=== PATIENT | female | born 1960 | race Caucasian/White ===

== ENCOUNTER 2020-12-23 12:32 | Emergency (ER) | payer OTHER ==
--- OUTSIDE RECORDS SUMMARY | 2020-12-23 12:35 | XMS REPORT | Continuity of Care Document ---
:1960 Author Organization [facility] t Address [address] [place] [address] Dr. Rice [address] [place] [id number] Care Team Providers Name Role Phone Unavailable Unavailable Unavailable Problems This patient has no known problems. Allergies, Adverse Reactions, Alerts This patient has no known allergies or adverse reactions. Medications This patient has no known medications. Procedures This patient has no known procedures. Results This patient has no known results.
--- NOTE | 2020-12-23 15:41 | ER ---
Nurse's Notes [facility] Name: Glenny Peoples Age: 60 yrs Sex: Female : 1960 Arrival Date: 12/23/2020 Time: 12:37 Bed DIS2 Private MD: Diagnosis: Presentation: 12/23 13:19 Chief complaint: Patient states: "I was getting my nails done, and I felt hot all of a ss sudden and passed out and threw up.". Coronavirus screen: Vaccine status: Patient reports receiving the 2nd dose of the covid vaccine. Ebola Screen: Patient denies exposure to infectious person. Patient denies travel to an Ebola-affected area in the 21 days before illness onset. Initial Sepsis Screen: Does the patient meet any 2 criteria? No. Patient's initial sepsis screen is negative. Does the patient have a suspected source of infection? No. Patient's initial sepsis screen is negative. Risk Assessment: Do you want to hurt yourself or someone else? Patient reports no desire to harm self or others. Onset of symptoms was December 23, 2020. 13:19 Method Of Arrival: Ambulatory ss 13:19 Acuity: KODY 3 ss Historical: - Allergies: 13:20 PENICILLINS; ss 13:20 Sulfa (Sulfonamide Antibiotics); ss - PMHx: 13:21 Hypertensive disorder; high cholesterol; Bipolar disorder; ss - Immunization history:: Client reports receiving the 2nd dose of the Covid vaccine. - Social history:: Smoking status: Patient denies any tobacco usage or history of. Vital Signs: 13:20 BP 100 / 72; Pulse 60; Resp 16; Temp 97.8(TE); Pulse Ox 100% ; Weight 79.38 kg; Height ss 5 ft. 6 in. (167.64 cm); Pain 0/10; 13:21 BP 108 / 66; ss 13:20 Body Mass Index 28.25 (79.38 kg, 167.64 cm) ss ED Course: 12:37 Patient arrived in ED. mr 13:20 Triage completed. ss 13:20 Arm band placed on right wrist. ss Administered Medications: No medications were administered Outcome: 15:40 Eloped from waiting room. ss 15:40 Patient left the ED. ss Signatures: Jess Helms Shelby, RN RN ss
[2020-12-23 15:58] VITALS: TEMP 97.8; O2SAT 100
[2020-12-23 15:59] VITALS: BP 108/66
== END 2020-12-23 15:40 | disposition left against medical advice (07) ==
LOC: ER 12:32
DX: Z53.21 Procedure and treatment not carried out due to patient leaving prior to being seen by health care provider (principal)
CPT/HCPCS: 82947; 99281

== ENCOUNTER 2021-08-07 15:13 | Observation (INO) | payer OTHER ==
--- OUTSIDE RECORDS SUMMARY | 2021-08-07 15:15 | XMS REPORT | Continuity of Care Document ---
:1960 Author Organization [facility] t Address [address] [place] [address] Care Team Providers Name Role Phone Zac RN RESEARCH Primary Care Physician Zac RN RESEARCH Attending Clinician Reserach_Research Attending Clinician Unavailable Reserach_Research Admitting Clinician Unavailable Payers Payer Name Policy Type Policy Number Effective Date Expiration Date Gomez HARLEY (EPO) [id number] 2011 00:00:00 Problems Condition Condition Condition Status Onset Resolution Last Treating Co mments Source Name Details Category Date Date Treatment Clinician Date Steatohepa Steatohepa Disease Active U myah hameed titedi - ity of 00:00: [place] 00 Medical Branch Hyperlipid Hyperlipid Disease Active U myah emia with emia with 04-30 [place] of target [place] density density 00 Medical lipoprotei lipoprotei Br anch n (LDL) n (LDL) cholestero cholestero l less l less than 130 than 130 mg/dL mg/dL Anxiety Anxiety Disease Active Univers 1-04 ity of 00:00: [place] 00 Medical Branch Allergies, Adverse Reactions, Alerts Allergy Allergy Status Severity Reaction(s) Onset Inactive Treating Comm ents Source Name Type Date Date Clinician Penicill Propensi Active Other - See As a U nivers ins ty to comments 04-30 child and ity o f adverse 00:00: haven't [place] reaction 00 tried Medical s again. Branch Sulfa Propensi Active Other - See Blisters U nivers (Sulfona ty to comments -04 in mouth. ity of mide adverse 00:00: [place] Antibiot reaction 00 Medica l ics) s Branch Social History Social Habit Start Date Stop Date Quantity Comments Source Exposure to Not sure [facility] SARS-CoV-2 (event) Medica l Branch Alcohol intake 2021-07-25 2021-07-25 0 /d [facility] 00:00:00 00:00:00 Medical Branch History of tobacco 2000-09-28 [facility] use 00:00:00 Medical Branch Sex Assigned At [address] [facility] y [facility] 00:00:00 00:00:00 Medical Branch Smoking Status Start Date Stop Date Source Former smoker 2020-08-01 00:00:00 2020-08-01 00:00:00 [facility] Medical Branch Medications Ordered Filled Start Stop Current Ordering Indication Dosage Frequency Signature Comments Components Source Medication Medication Date Date Medication? Clinician (SIG) Name Name budesonide- 2021- No 2{puff} Inhale 2 Univers formoteroL 07-25 Puffs 2 ity o f (SYMBICORT) 10:31: 00[place]00 (two) [place] 80-4.5 35 :00 times Medical mcg/actuati daily. Branch on inhaler traZODone Yes [id number] 50mg Take 1 Un storm 50 mg 3-31 tablet by ity of tablet 00:00: mouth at [place] 00 bedtime. Medical Branch busPIRone Yes [id number] 10mg Take 1 Un storm 10 mg 3-31 tablet by ity of tablet 00:00: mouth 2 00 (two) Medical times Branch daily as needed for Other (anxiety). atenoloL 50 Yes [id number] 50mg Take 1 U nivers mg tablet 3-08 tablet by ity o f 00:00: mouth [place] 00 daily. Medical Branch ezetimibe-r Yes [id number] 10mg Take 10 mg Univers osuvastatin 3-08 by mouth ity of 10-10 mg 00:00: daily. [facility] 00 Medical Branch citalopram Yes [id number] 20mg Take 1 U nivers 20 mg 3-08 tablet by ity of tablet 00:00: mouth [place] 00 daily. Medical Branch rOPINIRole Yes [id number] 5mg Take 1 Univers 5 mg tablet 3-08 tablet by ity of 00:00: mouth at [place] 00 bedtime. Medical Branch azelastine 2021- No [id number] 1{spray Use 1 Univers 137 mcg 06-03 } [place] in ity of (0.1 %) 00:00: 00:00 each [place] nasal spray 00 :00 nostril 2 Med ical (two) Branch times daily. Use in each nostril as directed benzonatate 2021- No [id number] 200mg Take 2 Univers 100 mg 06-03 capsules ity of capsule 00:00: 00:00 by mouth [place] 00 :00 every 8 Medical (eight) Branch hours as needed for Cough. methocarbam 2021- No [id number] 500mg Take 1 Univers oL 500 mg 06-03 tablet by ity of tablet 00:00: 00:00 mouth 4 [place] 00 :00 (four) Medical times Branch daily. meclizine Yes [id number] 25mg Take 1 Un storm 25 mg 1-05 tablet by ity of tablet 00:00: mouth [place] 00 every 6 Medical (six) Branch hours as needed for Dizziness. Diclofenac 2020-04- No [id number] Apply to Univers Sodium 1 % 05-29 area(s) 2 ity of gel 00:00: 00:00 (two) [place] 00 :00 times Medical daily as Branch needed for Pain (scale 4-6) (Apply 2 g do not exceed 4 g in a day). albuterol 2019-04- No [id number] 2{puff} Inhale 2 Univers 90 06-08 Puffs ity of mcg/actuati 00:00: 00:00 every 6 [place] inhaler 00 :00 (six) Medical hours as Branch needed for Wheezing or Shortness of Breath. Fenofibrate 2021- No [id number] 160mg Take 1 Univers 160 mg 11-29 tablet by ity of tablet 00:00: 00:00 mouth at [place] 00 :00 bedtime. Medical Branch amitriptyli 2021- No [id number] 100mg Take 1 Univers ne 100 mg 807-25 tablet by ity of tablet 00:00: 00:00 mouth [place] 00 :00 daily. Medical Branch ARIPiprazol 2021- No [id number] 10mg Take 1 Univers e 10 mg 707-25 tablet by ity of tablet 00:00: 00:00 mouth [place] 00 :00 daily. Medical Branch proMETHazin 2021- No [id number] 12.5mg Take 1 Univers e 12.5 mg 12-16 tablet by ity of tablet 00:00: 00:00 mouth [place] 00 :00 every 6 Medical (six) Branch hours as needed for Nausea and Vomiting (N/V). Immunizations Ordered Filled Immunization Date Status Comments [facility] e Immunization Name Name SARS-COV-2 COVID-19 2020-06-01 Completed Unive rsity of MODERNA VACCINE 00:00:00 [facility] SARS-COV-2 COVID-19 2020-05-04 Completed Unive rsity of MODERNA VACCINE 00:00:00 [facility] Influenza Virus 2020-04-11 [facility] .5 mL 00:00:00 [facility] 6+ MO Branch Zoster Vaccine 2018-11-25 Completed [facility] 00:00:00 [facility] Vital Signs Vital Name Observation Time Observation Value Comments Source Systolic blood 2021-07-25 15:32:00 117 mm[Hg] Univer sity [facility] pressure [facility] Diastolic blood 2021-07-25 15:32:00 78 mm[Hg] [facility] 2021-07-25 15:32:00 76 /min [facility] Body height 2021-07-25 15:32:00 167.6 cm [facility] Body weight 2021-07-25 15:32:00 79.652 kg [facility] BMI 2021-07-25 15:32:00 28.34 kg/m2 [facility] Oxygen saturation 2021-07-25 15:32:00 97 /min [facility] in Arterial blood Medical Br anch by Pulse oximetry Procedures This patient has no known procedures. Encounters Start End Encounter Admission Attending Care Care Encounter Source Date/Time Date/Time Type Type Clinicians Facility Department ID 2021-07-25 2021-07-25 Office JOSE Frank [id number] [place] [address] 10:30:00 11:50:25 Visit fl3ur [id number] it [facility] [id number] Kishor as LAVERNE?BLEA [id number] Wi joanie STANLEY [address] [place] [address] MEDICAL OFFICE [facility] 2021-06-04 2021-06-04 Outpatient Reserach_Re U U [id number] [place] 02:20:00 02:20:00 search [facility] Urology Results This patient has no known results.
[2021-08-07 16:15] LABS: Absolute Lymphocytes (CBC) 1.8 K/uL (0.7-4.9); Hematocrit 41.8 % (36.0-45.0); Lymphocytes % 35.7 % (15.3-44.8); MPV 6.8 fL (7.6-11.3); RBC Red Blood Cell Count 4.61 M/uL (3.86-4.86)
--- NOTE | 2021-08-07 16:20 | RAD REPORT ---
EXAM DESCRIPTION: RAD - Chest Single View - 08/07/2021 4:14 pm CLINICAL HISTORY: DYSPNEA COMPARISON: ABDOMEN 1 VIEW KUB dated 03/07/2014; ABDOMEN 1 VIEW KUB dated 02/11/2013 FINDINGS: Lines: None. Lungs: No evidence of edema or pneumonia. Pleural: No significant pleural effusions or pneumothorax. Cardiac: The heart size is within normal limits. Bones: No acute fractures. Other: IMPRESSION: No acute cardiopulmonary disease.
[2021-08-07 16:31] LABS: BUN Blood Urea Nitrogen 18 mg/dL (7-18); Bicarbonate 30 mmol/L (21-32); Glucose Level 104 mg/dL (74-106); NT PRO-BNP 43 pg/mL (<125); Potassium 3.7 mmol/L (3.5-5.1); Sodium Level 140 mmol/L (136-145)
[2021-08-07 16:38] LABS: Troponin High Sensitivity < 3.0 pg/mL (<58.9)
--- NOTE | 2021-08-07 16:58 | ER ---
Nurse's Notes [facility] Name: Glenny Peoples Age: 61 yrs Sex: Female : 1960 Arrival Date: 08/07/2021 Time: 15:19 Bed 8 Private MD: Diagnosis: Syncope Presentation: 08/07 15:28 Chief complaint: EMS states: pt was at a local ENT's office having a nasal procedure tw2 done. we got the call for a CPR in progress. when we arrived that was not the case. she was A\\T\\O3 vs stable. although pt had no recollection of what happened. staff reported lips turned blue, pt was clenching down so hard broke a front bottom tooth, and md started CPR. pt reports 4 syncopal episodes since April of this year and has been cleared medically each time. 15:28 Coronavirus screen: At this time, the client does not indicate any symptoms associated tw2 with coronavirus-19. Ebola Screen: Patient denies travel to an Ebola-affected area in the 21 days before illness onset. Initial Sepsis Screen: Does the patient meet any 2 criteria? No. Patient's initial sepsis screen is negative. Does the patient have a suspected source of infection? No. Patient's initial sepsis screen is negative. Risk Assessment: Do you want to hurt yourself or someone else? Patient reports no desire to harm self or others. Onset of symptoms was August 07, 2021. 15:28 Method Of Arrival: EMS: [facility] tw2 15:28 Acuity: KODY 3 tw2 Triage Assessment: 15:28 General: Appears in no apparent distress. slender, well groomed, Behavior is calm, tw2 cooperative, appropriate for age. Pain: Denies pain. EENT: dried blood noted to b/l nasal openings. pt reports "lidocaine might be wearing off", provider notified.. Neuro: Level of Consciousness is awake, alert, obeys commands, Oriented to person, place, time, situation. Cardiovascular: Patient's skin is warm and dry. Respiratory: Airway is patent Respiratory effort is even, unlabored, Respiratory pattern is regular, symmetrical. GI: No signs and/or symptoms were reported involving the gastrointestinal system. Musculoskeletal: Range of motion: intact in all extremities. Historical: - Allergies: 15:57 Sulfa (Sulfonamide Antibiotics); tw2 15:57 PENICILLINS; tw2 - PMHx: 15:57 Bipolar disorder; High Cholesterol; Hypertensive disorder; Gastroesophageal reflux tw2 disease; Anxiety; - PSHx: 15:57 Cholecystectomy; Appendectomy; tw2 - Immunization history:: Adult Immunizations. - Social history:: Smoking status: . Screenin:01 Abuse screen: Denies threats or abuse. Nutritional screening: No deficits noted. tw2 Tuberculosis screening: No symptoms or risk factors identified. Fall Risk None identified. Assessment: 19:12 Reassessment: Patient appears in no apparent distress at this time. No changes from tw2 previously documented assessment. Patient and/or family updated on plan of care and expected duration. Pain level reassessed. Patient is alert, oriented x 3, equal unlabored respirations, skin warm/dry/pink. Vital Signs: 15:28 BP 125 / 78; Pulse 64; Resp 17; Temp 97.8(TE); Pulse Ox 95% on R/A; Weight 77.56 kg tw2 (R); Height 5 ft. 6 in. (167.64 cm) (R); Pain 0/10; 15:48 Pulse Ox 90% on R/A; tw2 16:48 BP 129 / 70; Pulse 62; Resp 17; Pulse Ox 100% on 2 lpm NC; tw2 18:30 BP 131 / 68; Pulse 87; Resp 17; Pulse Ox 99% on R/A; tw2 19:09 BP 99 / 33; Pulse 63; Resp 12; Pulse Ox 99% on R/A; tw2 15:28 Body Mass Index 27.60 (77.56 kg, 167.64 cm) tw2 15:48 pt placed on 2 L nc at this time, provider notified. tw2 ED Course: 15:19 Patient arrived in ED. bd 15:24 Robert Rodriguez PA is PHCP. jr8 15:24 Vic Santiago DO is Attending Physician. jr8 15:28 Bed in low position. Call light in reach. esthetician/owner on. Pulse ox on. NIBP on. tw2 15:37 Deneen Dooley RN is Primary Nurse. tw2 15:57 Triage completed. tw2 16:01 Arm band placed on. tw2 16:16 XRAY Chest (1 view) In Process Unspecified. EDMS 16:57 Fabio Andersen MD is Hospitalizing Provider. jr8 21:16 No provider procedures requiring assistance completed. Patient admitted, IV remains in tw5 place. 21:17 COVID-19 (Coronavirus) Document "Date of Onset" if Symptomatic Sent. tw5 Administered Medications: No medications were administered Outcome: 16:57 Decision to Hospitalize by Provider. jr8 21:16 Admitted to ER Hold. Please see [facility] for further documentation. tw5 21:16 Condition: stable 21:16 Instructed on the need for admit. 04 17:18 Patient left the ED. vg1 Signatures: Dispatcher [employer] EDMS Betzy Peacock Josh, PA PA jr8 Deneen Dooley RN RN tw2 Iman Hector RN RN vg1 Theresa Giron tw5 Corrections: (The following items were deleted from the chart) 08/07 19:12 16:48 BP 129 / 70; Pulse 62bpm; Resp 17bpm; Pulse Ox 100% RA; tw2 tw2
--- NOTE | 2021-08-07 16:58 | EDPHYS ---
Physician Documentation [facility] Name: Glenny Peoples Age: 61 yrs Sex: Female : 1960 Arrival Date: 08/07/2021 Time: 15:19 Bed 8 Private MD: ED Physician Vic Santiago HPI: 08/07 16:03 This 61 yrs old Female presents to ER via EMS with complaints of Syncope. jr8 16:03 Onset: The symptoms/episode began/occurred acutely, today. Duration: This was a single jr8 episode. Context: the episode(s) was witnessed, ENT Office. 16:13 Current symptoms: Currently, the patient is not experiencing any symptoms, the patient jr8 feels back to baseline, no decreased level of consciousness, no confusion, no dysphasia, no headache, no paralysis, no visual changes. The patient has experienced similar episodes in the past, a few times. This is a 61-year-old female patient that presented to the emergency room after EMS was called out for syncopal episode with hypoxia. Patient stated that she has had 3 other episodes of syncope that were nonstimulated in the past. Was seen by cardiology at that time and had echocardiogram, stress test, Holter monitor placed without acute findings. Patient today was at otolaryngology office having a nasal procedure completed when staff stated that she yawned and then became cyanotic around the lips and clenched her teeth so hard that she broke a tooth. Stated that it lasted for couple minutes and was concerned that she had lost a pulse and started CPR. Patient stated that she felt them pushing on her chest and said ouch but does not remember much more than that. Stated that the next thing she remembers from when the procedure started was that EMS was on scene taking care of her. . Historical: - Allergies: 15:57 Sulfa (Sulfonamide Antibiotics); tw2 15:57 PENICILLINS; tw2 - PMHx: 15:57 Bipolar disorder; High Cholesterol; Hypertensive disorder; Gastroesophageal reflux tw2 disease; Anxiety; - PSHx: 15:57 Cholecystectomy; Appendectomy; tw2 - Immunization history:: Adult Immunizations. - Social history:: Smoking status: . ROS: 16:30 Eyes: Negative for injury, pain, redness, and discharge, ENT: Negative for injury, jr8 pain, and discharge, Neck: Negative for injury, pain, and swelling, Cardiovascular: Negative for chest pain, palpitations, and edema, Respiratory: Negative for shortness of breath, cough, wheezing, and pleuritic chest pain, Abdomen/GI: Negative for abdominal pain, nausea, vomiting, diarrhea, and constipation, Back: Negative for injury and pain, MS/Extremity: Negative for injury and deformity, Skin: Negative for injury, rash, and discoloration. 16:30 Neuro: Positive for syncope. Exam: 16:30 Constitutional: This is a well developed, well nourished patient who is awake, alert, jr8 and in no acute distress. Eyes: Pupils equal round and reactive to light, extra-ocular motions intact. Lids and lashes normal. Conjunctiva and sclera are non-icteric and not injected. Cornea within normal limits. Periorbital areas with no swelling, redness, or edema. ENT: Nares patent. No nasal discharge, no septal abnormalities noted. Tympanic membranes are normal and external auditory canals are clear. Oropharynx with no redness, swelling, or masses, exudates, or evidence of obstruction, uvula midline. Mucous membranes moist. Neck: Trachea midline, no thyromegaly or masses palpated, and no cervical lymphadenopathy. Supple, full range of motion without nuchal rigidity, or vertebral point tenderness. No Meningismus. Cardiovascular: Regular rate and rhythm with a normal S1 and S2. No gallops, murmurs, or rubs. Normal PMI, no JVD. No pulse deficits. Respiratory: Lungs have equal breath sounds bilaterally, clear to auscultation and percussion. No rales, rhonchi or wheezes noted. No increased work of breathing, no retractions or nasal flaring. Abdomen/GI: Soft, non-tender, with normal bowel sounds. No distension or tympany. No guarding or rebound. No evidence of tenderness throughout. Back: No spinal tenderness. No costovertebral tenderness. Full range of motion. Skin: Warm, dry with normal turgor. Normal color with no rashes, no lesions, and no evidence of cellulitis. MS/ Extremity: Pulses equal, no cyanosis. Neurovascular intact. Full, normal range of motion. Neuro: Awake and alert, GCS 15, oriented to person, place, time, and situation. Cranial nerves II-XII grossly intact. Motor strength 5/5 in all extremities. Sensory grossly intact. Vital Signs: 15:28 BP 125 / 78; Pulse 64; Resp 17; Temp 97.8(TE); Pulse Ox 95% on R/A; Weight 77.56 kg tw2 (R); Height 5 ft. 6 in. (167.64 cm) (R); Pain 0/10; 15:48 Pulse Ox 90% on R/A; tw2 16:48 BP 129 / 70; Pulse 62; Resp 17; Pulse Ox 100% on 2 lpm NC; tw2 18:30 BP 131 / 68; Pulse 87; Resp 17; Pulse Ox 99% on R/A; tw2 19:09 BP 99 / 33; Pulse 63; Resp 12; Pulse Ox 99% on R/A; tw2 15:28 Body Mass Index 27.60 (77.56 kg, 167.64 cm) tw2 15:48 pt placed on 2 L nc at this time, provider notified. tw2 MDM: 15:24 Patient medically screened. jr8 16:56 Data reviewed: vital signs, nurses notes, lab test result(s), EKG, radiologic studies, jr8 plain films. Data interpreted: Pulse oximetry: on room air is 94 %. Interpretation: acceptable. Counseling: I had a detailed discussion with the patient and/or guardian regarding: the historical points, exam findings, and any diagnostic results supporting the discharge/admit diagnosis, lab results, radiology results, the need for further work-up and treatment in the hospital. 08/07 15:26 Order name: Basic Metabolic Panel; Complete Time: 16:57 [facility] 08/07 15:26 Order name: CBC with Diff; Complete Time: 16:25 08/07 15:26 Order name: Magnesium; Complete Time: 16:57 08/07 15:26 Order name: NT PRO-BNP; Complete Time: 16:57 [facility] 08/07 15:26 Order name: Troponin HS; Complete Time: 16:57 08/07 16:32 Order name: ABG; Complete Time: 17:24 08/07 16:33 Order name: COVID-19 (Coronavirus) Document "Date of Onset" if Symptomatic [facility] 08/07 20:21 Order name: SARS-COV-2 RT PCR; Complete Time: 08:41 EDMS 08/07 22:10 Order name: Urinalysis; Complete Time: 08:41 EDMS 08/07 22:30 Order name: Urine Microscopic Only; Complete Time: 08:41 EDMS 08/08 03:11 Order name: CBC with Automated Diff; Complete Time: 08:41 EDMS 08/08 03:33 Order name: Comprehensive Metabolic Panel; Complete Time: 08:41 EDMS 08/08 03:33 Order name: Lipid Profile; Complete Time: 08:41 EDMS 08/08 03:33 Order name: T4 Free; Complete Time: 08:41 EDMS 08/07 15:26 Order name: XRAY Chest (1 view); Complete Time: 16:25 jr8 08/07 15:26 Order name: EKG; Complete Time: 15:27 jr8 08/07 15:26 Order name: Cardiac monitoring; Complete Time: 19:13 jr8 08/07 15:26 Order name: EKG - Nurse/Tech; Complete Time: 19:13 jr8 08/07 15:26 Order name: IV Saline Lock; Complete Time: 19:13 jr8 08/07 15:26 Order name: Labs collected and sent; Complete Time: 19:14 jr8 08/07 15:26 Order name: O2 Per Protocol; Complete Time: 19:14 jr8 08/07 15:26 Order name: O2 Sat Monitoring; Complete Time: 19:14 jr8 08/08 03:33 Order name: Thyroid Stimulating Hormone; Complete Time: 08:41 EDMS 08/08 08:46 Order name: CT; Complete Time: 09:23 EDMS 08/08 15:41 Order name: MRI; Complete Time: 15:41 EDMS Administered Medications: No medications were administered Disposition Summary: 08/07/21 16:57 Hospitalization Ordered Hospitalization Status: Observation jr8 Provider: Fabio Andersen Condition: Stable jr8 Problem: new jr8 Symptoms: have improved jr8 Bed/Room Type: Standard [facility] Location: [facility] ER HOLD(08/07/21 21:12) ja Room Assignment: ERHOLD-(08/07/21 21:12) ja Diagnosis - Syncope jr8 Forms: - Medication Reconciliation Form jr8 - SBAR form jr8 Addendum: 08/10/2021 15:41 Co-signature as Attending Physician, Vic Santiago DO I was immediately available on-site m s3 in the Emergency Department for consultation in the care of the patient.. Signatures: Dispatcher [employer] EDMS Robert Rodriguez PA PA jr8 Deneen Dooley RN RN tw2 Sanya Omer RN RN ja1 Vic Santiago DO DO ms3 Corrections: (The following items were deleted from the chart) 08/07 16:31 16:13 This is a 61-year-old female patient that presented to the emergency room after [facility] EMS was called out for syncopal episode with hypoxia. Patient stated that she has had 3 other episodes of syncope that were nonstimulated in the past. Patient today was at otolaryngology office having a nasal procedure completed.. 21: 16:57 Telemetry/MedSurg (observation) [facility] 21:12 16:57 [facility] ja
[2021-08-07 17:04] LABS: Blood O2 Saturation 97.1 % (92-98.5)
--- NOTE | 2021-08-07 19:01 | P.HP ---
Certification for Inpatient Patient admitted to: Observation With expected LOS: <2 Midnights Patient will require the following post-hospital care: None Practitioner: I am a practitioner with admitting privileges, knowledge of patient current condition, hospital course, and medical plan of care. Services: Services provided to patient in accordance with Admission requirements found in Title 42 Section 412.3 of the Code of Federal Regulations Patient History Date of Service: 08/07/21 Primary Care Provider: Dr. Bonilla Reason for admission: Syncope History of Present Illness: 61-year-old female with history of hypertension, hyperlipidemia, BPD, GERD presents the emergency department for syncopal event. Patient ports that she is had approximately 4 syncopal events or since April of this year never having any previously in her life. This time she was at the ENT office having a nasal procedure done when they noted that she yawned followed by becoming circumorally cyanotic and then clenched her jaw breaking one of her bottom teeth off, patient had chest compressions performed in the ENT office but regained consciousness and is currently back to her baseline mental status. Patient reports in the past 4 months she has had numerous tests performed to identify the cause of her syncope including echocardiogram, stress test, carotid Doppler, Holter monitor, CT scan of her head which have all been negative. Patient reports prior to her episodes that she does sometimes get nauseous and diaphoretic but denies any other symptoms prior to syncope including chest pain, palpitations, headache or dizziness. Patient's labs in the ER were unremarkable ED provider wishes to admit under observation for syncope, will consult neurology. - Past Medical/Surgical History -: Hypertension -: Hyperlipidemia -: BPD -: GERD -: Nasal surgery Psychosocial/ Personal History: Patient is retired lives at home with family - Family History Mother -: Cancer Father -: Hypertension - Social History Smoking Status: Never smoker Alcohol use: No CD- Drugs: No Caffeine use: Yes Place of Residence: Home Review of Systems 10-point ROS is otherwise unremarkable Neurological: Other (Syncope) Physical Examination - Physical Exam General: Alert, In no apparent distress, Oriented x3 HEENT: Atraumatic, PERRLA, Mucous membr. moist/pink, EOMI, Sclerae nonicteric Neck: Supple, 2+ carotid pulse no bruit, No LAD, Without JVD or thyroid abnormality Respiratory: Clear to auscultation bilaterally, Normal air movement Cardiovascular: Regular rate/rhythm, Normal S1 S2 Gastrointestinal: Normal bowel sounds, No tenderness Musculoskeletal: No tenderness Integumentary: No rashes Neurological: Normal gait, Normal speech, Normal strength at 5/5 x4 extr, Normal tone, Normal affect Lymphatics: No axilla or inguinal lymphadenopathy - Studies Laboratory Data (last 24 hrs) 08/07/21 16:03: WBC 5.1, Hgb 14.2, Hct 41.8, Plt Count 273 08/07/21 16:03: Sodium 140, Potassium 3.7, BUN 18, Creatinine 0.94, Glucose 104, Magnesium 2.0 Assessment and Plan - Plan Assessment: Syncoperecurrent with loss of consciousness Hypertension Hyperlipidemia BPD GERD Plan: Syncoperecurrent with loss of consciousness: Patient has had stress test, ech ocardiogram, Holter monitor, CT head, carotid Doppler in the past 4 months which have all been normal per patient. During this episode patient did clench her jaw resulting in the breaking up on her teeth we will also consult neurology as she has not been evaluated by neurologist for possible causes of syncope or possible seizures. Monitor on telemetry obtain orthostatic vital signs. Hypertension: Continue home medications Hyperlipidemia:Continue home medications BPD:Continue home medications GERD:Continue home medications DVT PPX: Lovenox Code status: Full Discharge Plan: Home Plan to discharge in: 24 Hours - Advance Directives Does patient have a Living Will: No Does patient have a Durable POA for Healthcare: No - Code Status/Comfort Care Code Status Assessed: Yes (Full code) Critical Care: No Time Spent Managing Pts Care (In Minutes): 55
[2021-08-07] MEDS ORDERED: ONDANSETRON 4 MG/2 ML VIAL IV PRN (21:22)
[2021-08-07 21:35] VITALS: BMI 27.6
[2021-08-07] MEDS ORDERED: ACETAMINOPHEN 325 MG TABLET PO PRN (21:39)
[2021-08-07] MEDS ORDERED: ACETAMINOPHEN 325 MG TABLET ONE (21:47)
[2021-08-07 22:07] LABS: Urine Appearance CLOUDY (Clear); Urine Bilirubin NEGATIVE (Negative); Urine Blood NEGATIVE (Negative); Urine Color YELLOW (Yellow); Urine Glucose NEGATIVE (Negative); Urine Protein NEGATIVE (Negative); Urine Urobilinogen 0.2 mg/dL (0.2-1.0); Urine pH 5.5 (5.0-7.0)
[2021-08-07 22:10] LABS: Urine Microscopic Reflex ORDER UMIC
[2021-08-07 22:29] LABS: Urine Bacteria LOADED /HPF (<20); Urine Mucus 1+ /HPF (NONE SEEN); Urine RBC <5 /HPF (NONE SEEN)
[2021-08-08] MEDS: CEFTRIAXONE 1,000 MG in NA CHLORIDE 0.9% 50 ML IVPB SCH ×2 (02:36→09:00)
[2021-08-08] MEDS ORDERED: HYDROCODONE/APAP 5/325 MG TAB PO PRN (02:36)
[2021-08-08 03:08] LABS: Absolute Lymphocytes (CBC) 2.2 K/uL (0.7-4.9); Hematocrit 38.4 % (36.0-45.0); Lymphocytes % 34.9 % (15.3-44.8); MPV 7.1 fL (7.6-11.3); RBC Red Blood Cell Count 4.24 M/uL (3.86-4.86)
[2021-08-08] MEDS ORDERED: HYDROCODONE/APAP 5/325 MG TAB ONE (03:16)
[2021-08-08] MEDS ORDERED: NA CHLORIDE 0.9% 50 ML ONE ×2 (03:17→08:56)
[2021-08-08] MEDS ORDERED: CEFTRIAXONE 1000 MG/VIAL ONE ×2 (03:17→08:56)
[2021-08-08 03:32] LABS: Albumin 3.3 g/dL (3.4-5.0); Bilirubin Total 0.4 mg/dL (0.2-1.0); Potassium 3.7 mmol/L (3.5-5.1); Protein, Total 6.9 g/dL (6.4-8.2); Thyroid Stimulating Hormone 1.92 uIU/mL (0.360-3.740)
--- NOTE | 2021-08-08 07:37 | P.PN ---
Date of Service: 08/08/21
[2021-08-08] MEDS ORDERED: NS KCL 20MEQ 20 MEQ/1,000 ML BAG IV SCH (08:00)
--- NOTE | 2021-08-08 08:45 | RAD REPORT ---
EXAM DESCRIPTION: CT - Abdomen Pelvis W Contrast - 08/08/2021 8:08 am CLINICAL HISTORY: LLQ pain/tender, b/l CVA pain tender, x1 day, prior cholecystectomy, appendectomy and hysterectomy COMPARISON: No relevant comparison available TECHNIQUE: Biphasic, helical CT imaging of the abdomen and pelvis was performed following 100 ml non -ionic IV contrast. No oral contrast administered. All CT scans are performed using dose optimization technique as appropriate and may include automated exposure control or mA/KV adjustment according to patient size. FINDINGS: No suspicious findings in the lung bases. Liver size is normal range with mild fatty infiltration pattern in the parenchyma. No focal liver les ion. No portal vein abnormality. Cholecystectomy clips are present. Biliary tree is enlarged but not outside of normal range for post cholecystectomy status. The intrahepatic biliary tree is not enlarge d. No pancreatic or peripancreatic abnormality. No splenic abnormalities. Symmetric renal function is seen with no hydronephrosis or suspicious renal mass. No pyelonephritis o r acute parenchymal process. Urinary bladder is contracted limiting assessment. No bladder stone or g ross bladder wall abnormality. No adrenal abnormalities. Uterus is absent. Atrophic ovaries are still present without suspicious finding. No dilated bowel loops or bowel wall thickening. Left-sided diverticulosis is very minimal. No acute colon finding seen. No free air, free fluid or inflammatory stranding. No hernia, mass or bulky lymphadenopathy. Disc and bone degenerative changes are present. There is concavity to the superior endplate L4 with p eripheral wall height maintained. Approximately 10-15% wedging of the T12 body is present with manager of sustainability ior wall height preserved. Arterial tree calcifications are present. IMPRESSION: Contrast enhanced CT abdomen and pelvis showing no acute or emergent finding. Fatty infiltration of the liver. Lower thoracic and lumbar degenerative bone and disc changes are present. No gross evidence for an ac franck process.
[2021-08-08] MEDS ORDERED: NS KCL 20MEQ 1,000 ML IV ONE (08:55)
[2021-08-08] MEDS ORDERED: ENOXAPARIN 40 MG/0.4 ML SQ ONE (08:56)
[2021-08-08] MEDS ORDERED: ENOXAPARIN 40 MG/0.4 ML SQ SCH (09:00)
[2021-08-08] MEDS ORDERED: levETIRAcetam 500 MG TAB PO SCH (09:30)
[2021-08-08] MEDS ORDERED: levETIRAcetam 500 MG TAB ONE (09:57)
[2021-08-08 12:36] VITALS: BP 112/87; TEMP 97.8
--- NOTE | 2021-08-08 15:40 | RAD REPORT ---
EXAM DESCRIPTION: MRI - Brain W/Wo Cont - 08/08/2021 3:26 pm CLINICAL HISTORY: Seizure COMPARISON: None TECHNIQUE: Axial, sagittal, and coronal magnetic images of the brain were obtained. 17 cc MultiHance administered intravenously FINDINGS: Relatively symmetric abnormal signal is present within the right and left basal ganglia me asuring up to 13 millimeters. This has a chronic appearance and may represent old infarction. These a reas do not enhance. Hippocampal gyri normal caliber and signal The ventricles are normal in caliber. Diffusion-weighted/ ADC mapping sequences do not demonstrate evidence of an acute infarction. No abnormal enhancement within the brain is seen. An extra-axial fluid collection is not noted. Fluid within the sinuses/mastoids is not seen IMPRESSION: No acute intracranial abnormality displayed
--- NOTE | 2021-08-08 16:42 | P.DS ---
Admission Date: 08/07/21 Discharge Date: 08/08/21 Primary Care Provider: Dr. Bonilla Disposition: ROUTINE DISCHARGE Discharge Condition: GOOD Reason for Admission: Syncope Vital Signs/Physical Exam: Temp Pulse Resp BP Pulse Ox 97.8 F 60 14 112/87 98 08/08/21 12:00 08/08/21 12:00 08/08/21 12:00 08/08/21 12:00 08/08/21 12:00 Laboratory Data at Discharge: WBC 6.4 K/uL (4.3-10.9) D 08/08/21 02:45 Hgb 13.0 g/dL (12.0-15.0) 08/08/21 02:45 Hct 38.4 % (36.0-45.0) 08/08/21 02:45 Plt Count 231 K/uL (152-406) 08/08/21 02:45 Sodium 141 mmol/L (136-145) 08/08/21 02:45 Potassium 3.7 mmol/L (3.5-5.1) 08/08/21 02:45 BUN 17 mg/dL (7-18) 08/08/21 02:45 Creatinine 0.82 mg/dL (0.55-1.3) 08/08/21 02:45 Glucose 98 mg/dL (74-106) 08/08/21 02:45 Magnesium 2.0 mg/dL (1.8-2.4) 08/07/21 16:03 Total Bilirubin 0.4 mg/dL (0.2-1.0) 08/08/21 02:45 AST 23 U/L (15-37) 08/08/21 02:45 ALT 37 U/L (12-78) 08/08/21 02:45 Alkaline Phosphatase 75 U/L (45-117) 08/08/21 02:45 Triglycerides 108 mg/dL (<150) 08/08/21 02:45 Cholesterol 119 mg/dL (<200) 08/08/21 02:45 HDL Cholesterol 50 mg/dL (40-60) 08/08/21 02:45 Cholesterol/HDL Ratio 2.38 08/08/21 02:45 Home Medications: Atenolol [Tenormin] 50 mg PO DAILY 08/07/21 Citalopram [Celexa*] 20 mg DAILY 08/07/21 Ropinirole HCl 5 mg DAILY 08/07/21 Rosuvastatin Calcium 5 mg DAILY 08/07/21 Aspirin [Adult Low Dose Aspirin EC] 81 mg PO DAILY 30 Days #30 tablet. 08/08/21 Cefpodoxime Proxetil 100 mg PO BID 7 Days #14 tablet 08/08/21 Folic Acid 1 mg PO DAILY 30 Days #30 tablet 08/08/21 levETIRAcetam [Keppra*] 250 mg PO BID 30 Days #60 tab 08/08/21 New Medications: Aspirin [Adult Low Dose Aspirin EC] 81 mg PO DAILY 30 Days #30 tablet. Cefpodoxime Proxetil 100 mg PO BID 7 Days #14 tablet Folic Acid 1 mg PO DAILY 30 Days #30 tablet levETIRAcetam [Keppra*] 250 mg PO BID 30 Days #60 tab Physician Discharge Instructions: MRI brain revealed abnormal signal present in both right and left basal ganglia measuring up to 13 millimeters. Chronic appearance that may represent old infarction. No acute findings. Patient reported flank pain and urinary changes, found to have bacteruria and treated with antibiotics for UTI. Patient is likely have tonic seizures, this being the 4th episodes since April. Prior episodes occurred while patient was sitting, relaxed, associated with bowel incontinence and around same time she was having UTIs. This would also be the 4th UTI since April. Patient reports urinary incontinence since April, occurred after initial UTI and has persisted. Likely, increasing risk for further UTIs. Pre and post void bladder scan was done. Patient noted to fully empty her bladder. CT abdomen/pelvis performed without any acute findings. Patient is discharged home New medications: Aspirin 81 mg, Keppra to 50 mg twice daily. Cefpodoxime for 7 days Continue statin Follow up with Neurology - Dr. Gardner in 2-3 weeks. Call his office in the next day or two to schedule appointment. Recommend following up with Urologist to further investigate urinary incontinence. Diet: Regular Activity: Ad aniceto Followup: NONE,NONE [Primary Care Provider] -
[2021-08-08 20:42] VITALS: O2SAT 99
== END 2021-08-08 17:18 | disposition home or self-care (01) ==
LOC: ER 15:13 → ERHOLD 18:51
PROVIDERS: ADMIT Hospitalist; ATTEND Hospitalist
DX: R55 Syncope and collapse (principal); N39.0 Urinary tract infection, site not specified; R32 Unspecified urinary incontinence; I10 Essential (primary) hypertension; E78.5 Hyperlipidemia, unspecified; K21.9 Gastro-esophageal reflux disease without esophagitis; F31.9 Bipolar disorder, unspecified; F41.9 Anxiety disorder, unspecified; Z20.822 Contact with and (suspected) exposure to COVID-19; Z79.82 Long term (current) use of aspirin; Z79.899 Other long term (current) drug therapy; Z88.0 Allergy status to penicillin; Z88.2 Allergy status to sulfonamides; Z90.49 Acquired absence of other specified parts of digestive tract; Z80.9 Family history of malignant neoplasm, unspecified; Z82.49 Family history of ischemic heart disease and other diseases of the circulatory system
CPT/HCPCS: 95819; 87088; 85025 ×2; 87086; 80048; 36415; 83735; 80061; 84443; 87077 ×2; 87186 ×2; 84484; 84439; 80053; 83880; 74177; 71045; 70553; 82805; 99285; U0003; Q9967; A9577; J1650; J3480; G0378 ×3; 81003; 81015

== ENCOUNTER 2022-09-13 03:46 | Emergency (ER) | payer OTHER ==
--- OUTSIDE RECORDS SUMMARY | 2022-09-13 03:57 | XMS REPORT | Continuity of Care Document ---
:1960 Author Organization [facility] [place] [facility] t Address [address] [facility] [address] [place] [id number] Care Team Providers Name Role Phone SHANIQUA FRANK Primary Care Physician Unavailable SHERRY GARCIA Attending Clinician Unavailable SHANIQUA FRANK Attending Clinician Unavailable TAWANNA GALICIA Attending Clinician Unavailable TAWANNA GALICIA Attending Clinician Unavailable Shaniqua Sapp Attending Clinician Jessika Del Rio PT Attending Clinician Unavailable Manolo Bonilla MD Attending Clinician Jaylen Pierre MD Attending Clinician Doctor Unassigned, Rayle Attending Clinician Unavailable Sherry Garcia MD Attending Clinician Basilio Gomez CRNA Attending Clinician Castro Lomeli DO S Attending Clinician Lab, Ang - Db Attending Clinician Unavailable SHIMA DHALIWAL Attending Clinician Unavailable Shima Anthony Attending Clinician Pavan Woodward Attending Clinician ANG CASTILLO Attending Clinician Unavailable MANOLO BONILLA Attending Clinician Unavailable Katie Watters Attending Clinician Unavailable Amelia Montejo MD Attending Clinician AMELIA MONTEJO Attending Clinician Unavailable PAVAN AWAN Attending Clinician Unavailable Zoraida Hector RN Attending Clinician Unavailable Only, Martín Db Test Attending Clinician Unavailable Raphael RALPH, Crystal Kiser Attending Clinician CRYSTAL LIM Attending Clinician Unavailable DEBI MIDDLETON Attending Clinician Unavailable Debi Middleton MD Attending Clinician Only, Adc Test Attending Clinician Unavailable Debi Lopez MD Attending Clinician DEBI LOPEZ Attending Clinician Unavailable Pob, Adc Lab Main Attending Clinician Unavailable CHANA RICHARDSON Attending Clinician Unavailable [email or web address]_Research Attending Clinician Unavailable Unknown, Attending Attending Clinician Unavailable Trina Horton Attending Clinician Chana Atkinson MD Attending Clinician TRINA BAEZ Attending Clinician Unavailable Radiology Attending Clinician Unavailable RADIOLOGY Attending Clinician Unavailable Janae LYNCH Attending Clinician Unavailable Janae Zuniga Attending Clinician MIKIE MEJIA Attending Clinician Unavailable Mikie Bai S Attending Clinician Nurse, Tray Urgent Attending Clinician Unavailable Provider, Martín [facility] Attending Clinician Unavailable Sunita Mendez Attending Clinician SUNITA DEL ROSARIO Attending Clinician Unavailable Melvin De La O DO Attending Clinician Lab, Adc Fam Pob I Attending Clinician Unavailable 2, Adc Lab Attending Clinician Unavailable Cece Gutierrez RN Attending Clinician Unavailable Pob1, [facility] Attending Clinician Unavailable SHERRY GARCIA Admitting Clinician Unavailable Sherry Garcia MD Admitting Clinician SHIMA DHALIWAL Admitting Clinician Unavailable SHANIQUA FRANK Admitting Clinician Unavailable Katie Watters Admitting Clinician Unavailable DEBI MIDDLETON Admitting Clinician Unavailable Debi Middleton MD Admitting Clinician [email or web address] Admitting Clinician Unavailable IQRA EDNISE Admitting Clinician Unavailable Payers Payer Name Policy Type Policy Number Effective Date Expiration Date Gomez [employer] [id number] 2011 00:00:00 [employer] (EPO) [id number] 2011 00:00:00 Problems Condition Condition Condition Status Onset Resolution Last Treating Co mments Source Name Details Category Date Date Treatment Clinician Date Restless Restless Disease Active 2020-04 Unive rs leg leg 2-31 ity of syndrome syndrome 00:00: [place] 00 Medical Branch Syncope Syncope Disease Active Univers 8-30 ity of 00:00: [place] 00 Medical Branch Steatohepa Steatohepa Disease Active U nivers titis titis 9-04 ity of 00:00: [place] 00 Medical Branch Hyperlipid Hyperlipid Disease Active U myah emia with emia with 1-04 ity of target low target low 00:00: [...] ents Source Name Type Date Date Clinician GABAPENT DRUG Active High SOB Univers IN INGREDI 3-07 ity of 00:00: [place] 00 Medical Branch Gabapent Propensi Active Shortness of Univers in ty to Breath 3-07 ity of adverse 00:00: [place] reaction 00 Medical s to Branch drug PSYLLIUM DRUG Active SOB Univers INGREDI 9-30 ity of 00:00: [place] 00 Medical Branch Psyllium Drug Active Shortness of Un storm Allergy Breath 9-30 ity of 00:00: [place] 00 Medical Branch Penicill DA Active [facility] [place] [facility] Sulfa DA Active [facility] (Sulfona 01-21 [place] mide 00:00: d Antibiot 00 Medical ics) Center Sulfa Propensi Active Other - See Blisters U nivers (Sulfona ty to comments 1-04 in mouth. ity of mide adverse 00:00: [place] Antibiot reaction 00 Medica l ics) s Branch Penicill Propensi Active Other - See As a U nivers ins ty to comments 1-04 child and ity o f adverse 00:00: haven't [place] reaction 00 tried Medical s again. Branch PENICILL Drug Active Other-Cmnt Univ ers INS Class 1-04 ity of 00:00: [place] 00 Medical Branch SULFA Drug Active Other-Cmnt Univer s (SULFONA Class 1-04 ity of MIDE 00:00: [place] ANTIBIOT 00 Medical ICS) Branch Social History Social Habit Start Date Stop Date Quantity Comments Source Exposure to 2022-07-25 2022-08-04 Not sure University SARS-CoV-2 (event) 00:00:00 15:09:00 [facility] Alcohol intake 2022-08-04 2022-08-04 0 /d University of 00:00:00 00:00:00 [facility] Cigarettes smoked 2022-03-04 2022-03-04 Univers ity of current (pack per 00:00:00 00:00:00 ) - Reported Branch Cigarette 2022-03-04 2022-03-04 University of pack-years 00:00:00 00:00:00 [facility] Tobacco use and 2022-03-04 2022-03-04 Smokeless Universit y of exposure 00:00:00 00:00:00 tobacco non-user [facility] History of tobacco 2000-09-28 Cigarette Smoker University of use 00:00:00 [facility] Sex Ass[birth year] At [birth year] Universit y of 00:00:00 00:00:00 [facility] Smoking Status Start Date Stop Date Source Ex-smoker 2022-03-04 00:00:00 2022-03-04 00:00:00 Universi ty of [facility] Medications Ordered Filled Start Stop Current Ordering Indication Dosage Frequency Signature Comments Components Source Medication Medication Date Date Medication? Clinician (SIG) Name Name montelukast Yes [id number] 10mg Take 1 Univers 10 mg 5-15 tablet by ity of tablet 00:00: mouth in [place] 00 the Medical morning. Branch FOLIC ACID 3-0 Yes [id number] TAKE 1 U nivers 1 mg tablet 4-13 TABLET BY ity of 00:00: MOUTH EVERY DAY Medical IN THE Branch MORNING FOLIC ACID 3-0 Yes [id number] TAKE 1 U nivers 1 mg tablet 4-13 TABLET BY ity of 00:00: MOUTH EVERY DAY Medical IN THE Branch MORNING FOLIC ACID 3-0 Yes [id number] TAKE 1 U nivers 1 mg tablet 4-13 TABLET BY ity of 00:00: MOUTH [place] EVERY DAY Medical IN THE Branch MORNING benzonatate 2022-0 Yes [id number] 200mg Take 1 Univers 200 mg 4-10 capsule by ity of capsule 00:00: mouth (three) Medical times Branch daily as needed for Cough. benzonatate 2022-0 Yes [id number] 200mg Take 1 Univers 200 mg 4-10 capsule by ity of capsule 00:00: mouth (three) Medical times Branch daily as needed for Cough. benzonatate 2022-0 Yes [id number] 200mg Take 1 Univers 200 mg 4-10 capsule by ity of capsule 00:00: mouth (three) Medical times Branch daily as needed for Cough. benzonatate 2022-0 Yes [id number] 200mg Take 1 Univers 200 mg 4-10 capsule by ity of capsule 00:00: mouth [place] (three) Medical times Branch daily as needed for Cough. benzonatate 2022-0 Yes [id number] 200mg Take 1 Univers 200 mg 4-10 capsule by ity of capsule 00:00: mouth [place] (three) Medical times Branch daily as needed for Cough. benzonatate 2022-0 Yes [id number] 200mg Take 1 Univers 200 mg 4-10 capsule by ity of capsule 00:00: mouth [place] (three) Medical times Branch daily as needed for Cough. cephALEXin 3-0 2022- Yes [id number] 500mg Take 1 Univers (KEFLEX) 4-10 04-18 capsule by ity of 500 mg 00:00: 04:59 mouth 4 [place] capsule 00 :00 (four) Medical times Branch daily for 7 days. cephALEXin 2023-0 3- Yes [id number] 500mg Take 1 Univers (KEFLEX) 4-10 04-18 capsule by ity of 500 mg 00:00: 04:59 mouth 4 [place] capsule 00 :00 (four) Medical times Branch daily for 7 days. cephALEXin 3-0 3- Yes [id number] 500mg Take 1 Univers (KEFLEX) 4-10 04-18 capsule by ity of 500 mg 00:00: 04:59 mouth 4 [place] capsule 00 :00 (four) Medical times Branch daily for 7 days. cephALEXin 2022-0 2022- Yes [id number] 500mg Take 1 Univers (KEFLEX) 4-10 -18 capsule by ity of 500 mg 00:00: 04:59 mouth 4 [place] capsule 00 :00 (four) Medical times Branch daily for 7 days. Cholecalcif 2022-0 Yes Take by Uni vers jenny, 3-27 mouth. ity of Vitamin D3, 10:53: [place] 50 mcg 44 Medical (2,000 Branch unit) tablet atogepant 2022-0 Yes 1{tbl} Take 1 Univ ers 60 mg Tab 3-27 tablet by ity o f 10:53: mouth [place] 44 daily. Medical Branch Cholecalcif 2022-0 Yes Take by Uni vers jenny, 3-27 mouth. ity of Vitamin D3, 10:53: [place] 50 mcg 44 Medical (2,000 Branch unit) tablet atogepant 2022-0 Yes 1{tbl} Take 1 Univ ers 60 mg Tab 3-27 tablet by ity o f 10:53: mouth [place] 44 daily. Medical Branch Cholecalcif 2022-0 Yes Take by Uni vers jenny, 3-27 mouth. ity of Vitamin D3, 10:53: [place] 50 mcg 44 Medical (2,000 Branch unit) tablet atogepant 2022-0 Yes 1{tbl} Take 1 Univ ers 60 mg Tab 3-27 tablet by ity o f 10:53: mouth [place] 44 daily. Medical Branch Cholecalcif 2022-0 Yes Take by Uni vers jenny, 3-27 mouth. ity of Vitamin D3, 10:53: [place] 50 mcg 44 Medical (2,000 Branch unit) tablet atogepant 2022-0 Yes 1{tbl} Take 1 Univ ers 60 mg Tab 3-27 tablet by ity o f 10:53: mouth [place] 44 daily. Medical Branch Cholecalcif 2022-0 Yes Take by Uni vers jenny, 3-27 mouth. ity of Vitamin D3, 10:53: [place] 50 mcg 44 Medical (2,000 Branch unit) tablet atogepant 2022-0 Yes 1{tbl} Take 1 Univ ers 60 mg Tab 3-27 tablet by ity o f 10:53: mouth [place] 44 daily. Medical Branch Cholecalcif 0 Yes Take by Uni vers jenny, 3-27 mouth. ity of Vitamin D3, 10:53: [place] 50 mcg 44 Medical (2,000 Branch unit) tablet atogepant 2022-0 Yes 1{tbl} Take 1 Univ ers 60 mg Tab 3-27 tablet by ity o f 10:53: mouth [place] 44 daily. Medical Branch Cholecalcif 0 Yes Take by Uni vers jenny, 3-27 mouth. ity of Vitamin D3, 10:53: [place] 50 mcg 44 Medical (2,000 Branch unit) tablet atogepant 2022-0 Yes 1{tbl} Take 1 Univ ers 60 mg Tab 3-27 tablet by ity o f 10:53: mouth [place] 44 daily. Medical Branch Cholecalcif 0 Yes Take by Uni vers jenny, 3-27 mouth. ity of Vitamin D3, 10:53: [place] 50 mcg 44 Medical (2,000 Branch unit) tablet atogepant 2022-0 Yes 1{tbl} Take 1 Univ ers 60 mg Tab 3-27 tablet by ity o f 10:53: mouth [place] 44 daily. Medical Branch Cholecalcif 0 Yes Take by Uni vers jenny, 3-27 mouth. ity of Vitamin D3, 10:53: [place] 50 mcg 44 Medical (2,000 Branch unit) tablet atogepant 2022-0 Yes 1{tbl} Take 1 Univ ers 60 mg Tab 3-27 tablet by ity o f 10:53: mouth [place] 44 daily. Medical Branch Cholecalcif 0 Yes Take by Uni vers jenny, 3-27 mouth. ity of Vitamin D3, 10:53: [place] 50 mcg 44 Medical (2,000 Branch unit) tablet atogepant 2022-0 Yes 1{tbl} Take 1 Univ ers 60 mg Tab 3-27 tablet by ity o f 10:53: mouth [place] 44 daily. Medical Branch Cholecalcif 0 Yes Take by Uni vers jenny, 3-27 mouth. ity of Vitamin D3, 10:53: [place] 50 mcg 44 Medical (2,000 Branch unit) tablet atogepant 2022-0 Yes 1{tbl} Take 1 Univ ers 60 mg Tab 3-27 tablet by ity o f 10:53: mouth [place] 44 daily. Medical Branch Cholecalcif 2022-0 Yes Take by Uni vers jenny, 3-27 mouth. ity of Vitamin D3, 10:53: [place] 50 mcg 44 Medical (2,000 Branch unit) tablet atogepant 2022-0 Yes 1{tbl} Take 1 Univ ers 60 mg Tab 3-27 tablet by ity o f 10:53: mouth [place] 44 daily. Medical Branch cyclobenzap 0 Yes [id number] 5mg Take 1 Univers rine 5 mg 3-27 tablet by ity o f tablet 00:00: mouth 2 [place] 00 (two) Medical times Branch daily as needed for Muscle Spasms. estradioL 2022-0 Yes [id number] Using Uni vers (ESTRACE) 3-27 finger, ity of 0.01 % (0.1 00:00: apply 1g [place] mg/gram) 00 vaginally Medica l vaginal at bedtime Branch cream every night cyclobenzap 2022-0 Yes [id number] 5mg Take 1 Univers rine 5 mg 3-27 tablet by ity o f tablet 00:00: mouth 2 [place] 00 (two) Medical times Branch daily as needed for Muscle Spasms. estradioL 2022-0 Yes [id number] Using Uni vers (ESTRACE) 3-27 finger, ity of 0.01 % (0.1 00:00: apply 1g [place] mg/gram) 00 vaginally Medica l vaginal at bedtime Branch cream every night cyclobenzap 2022-0 Yes [id number] 5mg Take 1 Univers rine 5 mg 3-27 tablet by ity o f tablet 00:00: mouth 2 [place] 00 (two) Medical times Branch daily as needed for Muscle Spasms. estradioL 2022-0 Yes [id number] Using Uni vers (ESTRACE) 3-27 finger, ity of 0.01 % (0.1 00:00: apply 1g [place] mg/gram) 00 vaginally Medica l vaginal at bedtime Branch cream every night cyclobenzap 2023-0 Yes [id number] 5mg Take 1 Univers rine 5 mg 3-27 tablet by ity o f tablet 00:00: mouth 2 (two) Medical times Branch daily as needed for Muscle Spasms. estradioL 2022-0 Yes [id number] Using Uni vers (ESTRACE) 3-27 finger, ity of 0.01 % (0.1 00:00: apply 1g [place] mg/gram) 00 vaginally Medica l vaginal at bedtime Branch cream every night cyclobenzap 3-0 Yes [id number] 5mg Take 1 Univers rine 5 mg 3-27 tablet by ity o f tablet 00:00: mouth 2 (two) Medical times Branch daily as needed for Muscle Spasms. estradioL 2022-0 Yes [id number] Using Uni vers (ESTRACE) 3-27 finger, ity of 0.01 % (0.1 00:00: apply 1g [place] mg/gram) 00 vaginally Medica l vaginal at bedtime Branch cream every night cyclobenzap 2022-0 Yes [id number] 5mg Take 1 Univers rine 5 mg 3-27 tablet by ity o f tablet 00:00: mouth 2 (two) Medical times Branch daily as needed for Muscle Spasms. estradioL 2022-0 Yes [id number] Using Uni vers (ESTRACE) 3-27 finger, ity of 0.01 % (0.1 00:00: apply 1g [place] mg/gram) 00 vaginally Medica l vaginal at bedtime Branch cream every night cyclobenzap 2023-0 Yes [id number] 5mg Take 1 Univers rine 5 mg 3-27 tablet by ity o f tablet 00:00: mouth 2 (two) Medical times Branch daily as needed for Muscle Spasms. estradioL 3-0 Yes [id number] Using Uni vers (ESTRACE) 3-27 finger, ity of 0.01 % (0.1 00:00: apply 1g [place] mg/gram) 00 vaginally Medica l vaginal at bedtime Branch cream every night cyclobenzap 2023-0 Yes [id number] 5mg Take 1 Univers rine 5 mg 3-27 tablet by ity o f tablet 00:00: mouth 2 (two) Medical times Branch daily as needed for Muscle Spasms. estradioL 2023-0 Yes [id number] Using Uni vers (ESTRACE) 3-27 finger, ity of 0.01 % (0.1 00:00: apply 1g [place] mg/gram) 00 vaginally Medica l vaginal at bedtime Branch cream every night cyclobenzap 2022-0 Yes [id number] 5mg Take 1 Univers rine 5 mg 3-27 tablet by ity o f tablet 00:00: mouth 2 (two) Medical times Branch daily as needed for Muscle Spasms. estradioL 2022-0 Yes [id number] Using Uni vers (ESTRACE) 3-27 finger, ity of 0.01 % (0.1 00:00: apply 1g [place] mg/gram) 00 vaginally Medica l vaginal at bedtime Branch cream every night cyclobenzap 2022-0 Yes [id number] 5mg Take 1 Univers rine 5 mg 3-27 tablet by ity o f tablet 00:00: mouth 2 (two) Medical times Branch daily as needed for Muscle Spasms. estradioL 2022-0 Yes [id number] Using Uni vers (ESTRACE) 3-27 finger, ity of 0.01 % (0.1 00:00: apply 1g [place] mg/gram) 00 vaginally Medica l vaginal at bedtime Branch cream every night cyclobenzap 2022-0 Yes [id number] 5mg Take 1 Univers rine 5 mg 3-27 tablet by ity o f tablet 00:00: mouth 2 (two) Medical times Branch daily as needed for Muscle Spasms. estradioL 2022-0 Yes [id number] Using Uni vers (ESTRACE) 3-27 finger, ity of 0.01 % (0.1 00:00: apply 1g [place] mg/gram) 00 vaginally Medica l vaginal at bedtime Branch cream every night cyclobenzap 3-0 Yes [id number] 5mg Take 1 Univers rine 5 mg 3-27 tablet by ity o f tablet 00:00: mouth 2 (two) Medical times Branch daily as needed for Muscle Spasms. estradioL 2022-0 Yes [id number] Using Uni vers (ESTRACE) 3-27 finger, ity of 0.01 % (0.1 00:00: apply 1g [place] mg/gram) 00 vaginally Medica l vaginal at bedtime Branch cream every night naproxen 2023-0 Yes [id number] 500mg Take 1 Univers 500 mg 3-24 [id number] tablet by ity of tablet 00:00: mouth (two) Medical times Branch daily as needed for Pain (scale 4-6) (use sparingly due to side effects). naproxen 2022-0 Yes [id number] 500mg Take 1 Univers 500 mg 3-24 [id number] tablet by ity of tablet 00:00: mouth (two) Medical times Branch daily as needed for Pain (scale 4-6) (use sparingly due to side effects). naproxen 2022-0 Yes [id number] 500mg Take 1 Univers 500 mg 3-24 [id number] tablet by ity of tablet 00:00: mouth (two) Medical times Branch daily as needed for Pain (scale 4-6) (use sparingly due to side effects). naproxen 2022-0 Yes [id number] 500mg Take 1 Univers 500 mg 3-24 [id number] tablet by ity of tablet 00:00: mouth (two) Medical times Branch daily as needed for Pain (scale 4-6) (use sparingly due to side effects). naproxen 2022-0 Yes [id number] 500mg Take 1 Univers 500 mg 3-24 [id number] tablet by ity of tablet 00:00: mouth (two) Medical times Branch daily as needed for Pain (scale 4-6) (use sparingly due to side effects). naproxen 2022-0 Yes [id number] 500mg Take 1 Univers 500 mg 3-24 [id number] tablet by ity of tablet 00:00: mouth (two) Medical times Branch daily as needed for Pain (scale 4-6) (use sparingly due to side effects). naproxen 2022-0 Yes [id number] 500mg Take 1 Univers 500 mg 3-24 [id number] tablet by ity of tablet 00:00: mouth (two) Medical times Branch daily as needed for Pain (scale 4-6) (use sparingly due to side effects). naproxen 2022-0 Yes [id number] 500mg Take 1 Univers 500 mg 3-24 [id number] tablet by ity of tablet 00:00: mouth (two) Medical times Branch daily as needed for Pain (scale 4-6) (use sparingly due to side effects). naproxen 2022-0 Yes [id number] 500mg Take 1 Univers 500 mg 3-24 [id number] tablet by ity of tablet 00:00: mouth 2 (two) Medical times Branch daily as needed for Pain (scale 4-6) (use sparingly due to side effects). naproxen 2022-0 Yes [id number] 500mg Take 1 Univers 500 mg 3-24 [id number] tablet by ity of tablet 00:00: mouth 2 (two) Medical times Branch daily as needed for Pain (scale 4-6) (use sparingly due to side effects). naproxen 2022-0 Yes [id number] 500mg Take 1 Univers 500 mg 3-24 [id number] tablet by ity of tablet 00:00: mouth 2 (two) Medical times Branch daily as needed for Pain (scale 4-6) (use sparingly due to side effects). naproxen 2022-0 Yes [id number] 500mg Take 1 Univers 500 mg 3-24 [id number] tablet by ity of tablet 00:00: mouth 2 (two) Medical times Branch daily as needed for Pain (scale 4-6) (use sparingly due to side effects). naproxen 2022-0 Yes [id number] 500mg Take 1 Univers 500 mg 3-24 [id number] tablet by ity of tablet 00:00: mouth 2 (two) Medical times Branch daily as needed for Pain (scale 4-6) (use sparingly due to side effects). lactated 2022-0 Yes 1000mL at 50 Univer s ringers IV 3-15 mL/hr, ity of infusion 17:00: 1,000 mL, [place] 1,000 mL 00 IV Medical Infusion, Branch CONTINUOUS , Starting on Thu07/09/22 at 1200, Until Discontinu ed, Routine, PACU lactated 2022-0 3- No 1000mL at 50 Unive rs ringers IV 3-15 03-15 mL/hr, ity of infusion 17:00: 19:12 1,000 mL, [place] 1,000 mL 00 :09 IV Medical Infusion, Branch CONTINUOUS , Starting on Thu07/09/22 at 1200, Until Thu07/09/22 at 1412, Routine, PACU FENTanyl PF 2022-0 Yes 25ug 25 mcg, Uni vers (SUBLIMAZE 3-15 Slow IV ity of (PF)) 16:54: Push, [place] injection 32 Q5MIN PRN, Medi tamra 25 mcg 4 doses, Branch Starting on Thu07/09/22 at 1154, Until Discontinu ed, Routine, Pain (scale 7-10), PACU FENTanyl PF 2022-0 Yes 25ug 25 mcg, Uni vers (SUBLIMAZE 3-15 Slow IV ity of (PF)) 16:54: Push, [place] injection 32 Q5MIN PRN, Medi tamra 25 mcg 4 doses, Branch Starting on Thu07/09/22 at 1154, Until Discontinu ed, Routine, Pain (scale 4-6), PACU proMETHazin 0 Yes 12.5mg 12.5 mg, Univers e 3-15 IV ity of (PHENERGAN) 16:54: Piggyback, [place] 12.5 mg in 32 PRN, 1 Medical NaCl 0.9% dose, Branch (NS) 50 mL Starting IV on Thu piggyback 07/09/22 at 1154, Until Discontinu ed, Routine, Nausea and Vomiting (N/V), PACU FENTanyl PF 2022-0 2022- No 25ug 25 mcg, Un storm (SUBLIMAZE 3-09 07-15 Slow IV ity o f (PF)) 16:54: 19:12 Push, [place] injection 32 :09 Q5MIN PRN, Medi tamra 25 mcg 4 doses, Branch Starting on Thu07/09/22 at 1154, Until Thu07/09/22 at 1412, Routine, Pain (scale 7-10), PACU FENTanyl PF 2022-0 2022- No 25ug 25 mcg, Un storm (SUBLIMAZE 3-15 03-15 Slow IV ity o f (PF)) 16:54: 19:12 Push, [place] injection 32 :09 Q5MIN PRN, Medi tamra 25 mcg 4 doses, Branch Starting on Thu07/09/22 at 1154, Until Thu07/09/22 at 1412, Routine, Pain (scale 4-6), PACU proMETHazin 2022-0 2022- No 12.5mg 12.5 mg, Univers e 3-15 03-15 IV ity of (PHENERGAN) 16:54: 19:12 [place], 12.5 mg in 32 :09 PRN, 1 Medical NaCl 0.9% dose, Branch (NS) 50 mL Starting IV on Thu piggyback 07/09/22 at 1154, Until Thu07/09/22 at 1412, Routine, Nausea and Vomiting (N/V), PACU propofoL IV 2022- No Intravenou Univers infusion 07-09 s, ONCE ity of 16:01: 16:16 INTRA [place] 00 :08 PROCEDURE, Medical Starting Branch on Thu07/09/22 at 1101, Until Thu07/09/22 at 1116, Routine, Intra-op lidocaine 2022- No Intravenou U nivers 1% 07-09 s, ONCE ity of (XYLOCAINE) 16:01: 16:16 INTRA [place] 100 mg/10 00 :08 PROCEDURE, Medi tamra mL (1 %) Starting Branch injection on Thu07/09/22 at 1101, Until Thu07/09/22 at 1116, Routine, Intra-op lactated 2022- No IV Univers ringers IV 07-09 Infusion, ity of infusion 15:39: 16:16 CONTINUOUS [place] 00 :08 PRN, Medical Starting Branch on Thu07/09/22 at 1039, Until Thu07/09/22 at 1116, Routine, Intra-op water for 2022- No PRN, Univers irrigation 07-09 Starting ity of irrigation 15:24: 16:14 on Thu [place] solution 00 :38 07/09/22 at Medic al 1024, Branch Until Thu07/09/22 at 1114, Routine, Intra-op simethicone 2022- No PRN, Unive rs (GAS RELIEF 07-09 Starting ity of (SIMETHICON 15:23: 16:14 on Thu [place] as E)) 40 00 :38 07/09/22 at Medical mg/0.6 mL 1023, Branch drops Until Thu07/09/22 at 1114, Routine, Intra-op lactated 2022- No 1000mL at 42 Unive rs ringers IV 3-15 03-15 mL/hr, ity of infusion 15:15: 15:15 1,000 mL, [place] 1,000 mL 00 :00 IV Medical Infusion, Branch ONCE, 1 dose, On Thu07/09/22 at 1015, Routine, DSU Pre-op lactated 3-0 3- No 1000mL at 42 Unive rs ringers IV 3-15 03-15 mL/hr, ity of infusion 15:15: 15:15 1,000 mL, [place] 1,000 mL 00 :00 IV Medical Infusion, Branch ONCE, 1 dose, On Thu07/09/22 at 1015, Routine, DSU Pre-op Cholecalcif 2022-0 Yes Take by Uni vers jenny, 3-15 mouth. ity of Vitamin D3, 12:12: [place] 50 mcg 06 Medical (2,000 Branch unit) tablet atogepant 2022-0 Yes 1{tbl} Take 1 Univ ers 60 mg Tab 3-15 tablet by ity o f 12:12: mouth [place] 06 daily. Medical Branch Cholecalcif 2022-0 Yes Take by Uni vers jenny, 3-15 mouth. ity of Vitamin D3, 12:12: [place] 50 mcg 06 Medical (2,000 Branch unit) tablet atogepant 2022-0 Yes 1{tbl} Take 1 Univ ers 60 mg Tab 3-15 tablet by ity o f 12:12: mouth [place] 06 daily. Medical Branch Cholecalcif 2022-0 Yes Take by Uni vers jenny, 3-15 mouth. ity of Vitamin D3, 12:12: [place] 50 mcg 06 Medical (2,000 Branch unit) tablet atogepant 2022-0 Yes 1{tbl} Take 1 Univ ers 60 mg Tab 3-15 tablet by ity o f 12:12: mouth [place] 06 daily. Medical Branch Cholecalcif 2022-0 Yes Take by Uni vers jenny, 3-15 mouth. ity of Vitamin D3, 12:12: [place] 50 mcg 06 Medical (2,000 Branch unit) tablet atogepant 2022-0 Yes 1{tbl} Take 1 Univ ers 60 mg Tab 3-15 tablet by ity o f 12:12: mouth [place] 06 daily. Medical Branch Cholecalcif 2022-0 Yes Take by Uni vers jenny, 3-15 mouth. ity of Vitamin D3, 12:12: [place] 50 mcg 06 Medical (2,000 Branch unit) tablet atogepant 2022-0 Yes 1{tbl} Take 1 Univ ers 60 mg Tab 3-15 tablet by ity o f 12:12: mouth [place] 06 daily. Medical Branch Cholecalcif 2022-0 Yes Take by Uni vers jenny, 3-15 mouth. ity of Vitamin D3, 10:07: [place] 50 mcg 34 Medical (2,000 Branch unit) tablet atogepant 2022-0 Yes 1{tbl} Take 1 Univ ers 60 mg Tab 3-15 tablet by ity o f 10:07: mouth [place] 34 daily. Medical Branch furosemide 2022-0 Yes [id number] Take once Univers 20 mg 3-15 [id number] daily as ity of tablet 00:00: needed for swelling Medical Branch furosemide 2023-0 Yes [id number] Take once Univers 20 mg 3-15 [id number] daily as ity of tablet 00:00: needed for swelling Medical Branch furosemide 2023-0 Yes [id number] Take once Univers 20 mg 3-15 [id number] daily as ity of tablet 00:00: needed for swelling Medical Branch furosemide 2023-0 Yes [id number] Take once [facility] 20 mg 3-15 [id number] daily as [facility] of tablet 00:00: needed for swelling Medical Branch furosemide 2023-0 Yes [id number] Take once [facility] 20 mg 3-15 [id number] daily as it[facility] of tablet 00:00: needed for swelling Medical Branch furosemide 2023-0 Yes [id number] Take once [facility] 20 mg 3-15 [id number] daily as ity of tablet 00:00: needed for swelling Medical Branch furosemide 2023-0 Yes [id number] Take once [facility] 20 mg 3-15 [id number] daily as ity of tablet 00:00: needed for swelling Medical Branch furosemide 2023-0 Yes [id number] Take once [facility] 20 mg 3-15 [id number] daily as ity of tablet 00:00: needed for swelling Medical Branch furosemide 2023-0 Yes [id number] Take once [facility] 20 mg 3-15 [id number] daily as ity of tablet 00:00: needed for swelling Medical Branch furosemide 2023-0 Yes [id number] Take once [facility] 20 mg 3-15 [id number] daily as ity of tablet 00:00: needed for swelling Medical Branch furosemide 3-0 Yes [id number] Take once [facility] 20 mg 3-15 [id number] daily as ity of tablet 00:00: needed for swelling Medical Branch furosemide 3-0 Yes [id number] Take once [facility] 20 mg 3-15 [id number] daily as ity of tablet 00:00: needed for swelling Medical Branch furosemide 3-0 Yes [id number] Take once [facility] 20 mg 3-15 [id number] daily as ity of tablet 00:00: needed for swelling Medical Branch furosemide 3-0 Yes [id number] Take once [facility] 20 mg 3-15 [id number] daily as ity of tablet 00:00: needed for swelling Medical Branch furosemide 3-0 Yes [id number] Take once [facility] 20 mg 3-15 [id number] daily as ity of tablet 00:00: needed for swelling Medical Branch furosemide 3-0 3- No [id number] Take once [facility] 20 mg 3-15 03-15 [id number] daily as ity of tablet 00:00: 00:00 needed for [facility] 00 :00 swelling Medical Branch furosemide 2022-0 Yes [id number] Take once [facility] 20 mg 2-23 [id number] daily as ity of tablet 00:00: needed for swelling Medical Branch levocetiriz 2022-0 Yes [id number] 5mg Take 1 [facility] ine 5 mg 2-23 tablet by ity of tablet 00:00: mouth every Medical evening. Branch montelukast 2022-0 Yes [id number] 10mg Take 1 [facility] 10 mg 2-23 tablet by ity of tablet 00:00: mouth in 00 the Medical morning. Branch naproxen 2022-0 Yes [id number] 500mg Take 1 [facility] 500 mg 2-23 [id number] tablet by ity of tablet 00:00: mouth 2 (two) Medical times Branch daily as needed for Pain (scale 4-6). furosemide 2022-0 Yes [id number] Take once [facility] 20 mg 2-23 [id number] daily as ity of tablet 00:00: needed for swelling Medical Branch levocetiriz 2022-0 Yes [id number] 5mg Take 1 [facility] ine 5 mg 2-23 tablet by ity of tablet 00:00: mouth [place] 00 every Medical evening. Branch montelukast 3-0 Yes [id number] 10mg Take 1 [facility] 10 mg 2-23 tablet by ity of tablet 00:00: mouth in [place] 00 the Medical morning. Branch naproxen 2022-0 Yes [id number] 500mg Take 1 [facility] 500 mg 2-23 [id number] tablet by it[facility] of tablet 00:00: mouth 2 (two) Medical times Branch daily as needed for Pain (scale 4-6). furosemide 2022-0 Yes [id number] Take once [facility] 20 mg 2-23 [id number] daily as ity of tablet 00:00: needed for swelling Medical Branch levocetiriz 2022-0 Yes [id number] 5mg Take 1 [facility] ine 5 mg 2-23 tablet by ity of tablet 00:00: mouth every Medical evening. Branch montelukast 2022-0 Yes [id number] 10mg Take 1 [facility] 10 mg 2-23 tablet by ity of tablet 00:00: mouth in [place] the Medical morning. Branch naproxen 2022-0 Yes [id number] 500mg Take 1 [facility] 500 mg 2-23 [id number] tablet by ity of tablet 00:00: mouth 2 (two) Medical times [place] daily as needed for Pain (scale 4-6). furosemide 2022-0 Yes [id number] Take once [facility] 20 mg 2-23 [id number] daily as ity of tablet 00:00: needed for swelling Medical Branch levocetiriz 2022-0 Yes [id number] 5mg Take 1 [facility] ine 5 mg 2-23 tablet by ity of tablet 00:00: mouth every Medical evening. Branch montelukast 2022-0 Yes [id number] 10mg Take 1 [facility] 10 mg 2-23 tablet by ity of tablet 00:00: mouth in [place] the Medical morning. Branch naproxen 3-0 Yes [id number] 500mg Take 1 [facility] 500 mg 2-23 [id number] tablet by ity of tablet 00:00: mouth 2 (two) Medical times [place] daily as needed for Pain (scale 4-6). furosemide 3-0 Yes [id number] Take once [facility] 20 mg 2-23 [id number] daily as ity of tablet 00:00: needed for swelling Medical Branch levocetiriz 3-0 Yes [id number] 5mg Take 1 [facility] ine 5 mg 2-23 tablet by ity of tablet 00:00: mouth [place] 00 every Medical evening. Branch montelukast 2022-0 Yes [id number] 10mg Take 1 [facility] 10 mg 2-23 tablet by ity of tablet 00:00: mouth in [place] 00 the Medical morning. Branch naproxen 2022-0 Yes [id number] 500mg Take 1 [facility] 500 mg 2-23 [id number] tablet by ity of tablet 00:00: mouth 2 [place] 00 (two) Medical times Branch daily as needed for Pain (scale 4-6). levocetiriz 2022-0 Yes [id number] 5mg Take 1 [facility] ine 5 mg 2-23 tablet by ity of tablet 00:00: mouth [place] 00 every Medical evening. Branch montelukast 2022-0 Yes [id number] 10mg Take 1 [facility] 10 mg 2-23 tablet by ity of tablet 00:00: mouth in [place] 00 the Medical morning. Branch naproxen 2022-0 Yes [id number] 500mg Take 1 [facility] 500 mg 2-23 [id number] tablet by ity of tablet 00:00: mouth 2 [place] 00 (two) Medical times Branch daily as needed for Pain (scale 4-6). levocetiriz 2022-0 Yes [id number] 5mg Take 1 [facility] ine 5 mg 2-23 tablet by ity of tablet 00:00: mouth [place] 00 every Medical evening. Branch montelukast 2022-0 Yes [id number] 10mg Take 1 [facility] 10 mg 2-23 tablet by ity of tablet 00:00: mouth in [place] 00 the Medical morning. Branch naproxen 2022-0 Yes [id number] 500mg Take 1 [facility] 500 mg 2-23 [id number] tablet by ity of tablet 00:00: mouth 2 [place] 00 (two) Medical times [place] daily as needed for Pain (scale 4-6). levocetiriz 3-0 Yes [id number] 5mg Take 1 [facility] ine 5 mg 2-23 tablet by ity of tablet 00:00: mouth [place] 00 every Medical evening. Branch montelukast 3-0 Yes [id number] 10mg Take 1 [facility] 10 mg 2-23 tablet by ity of tablet 00:00: mouth in [place] 00 the Medical morning. Branch naproxen 2022-0 Yes [id number] 500mg Take 1 [facility] 500 mg 2-23 [id number] tablet by ity of tablet 00:00: mouth 2 [place] 00 (two) Medical times Branch daily as needed for Pain (scale 4-6). levocetiriz 2022-0 Yes [id number] 5mg Take 1 [facility] ine 5 mg 2-23 tablet by ity of tablet 00:00: mouth [place] 00 every Medical evening. Branch montelukast 2022-0 Yes [id number] 10mg Take 1 [facility] 10 mg 2-23 tablet by ity of tablet 00:00: mouth in [place] 00 the Medical morning. Branch levocetiriz 2022-0 Yes [id number] 5mg Take 1 [facility] ine 5 mg 2-23 tablet by ity of tablet 00:00: mouth [place] 00 every Medical evening. Branch montelukast 2022-0 Yes [id number] 10mg Take 1 [facility] 10 mg 2-23 tablet by ity of tablet 00:00: mouth in [place] 00 the Medical morning. Branch levocetiriz 2022-0 Yes [id number] 5mg Take 1 [facility] ine 5 mg 2-23 tablet by ity of tablet 00:00: mouth [place] 00 every Medical evening. Branch montelukast 2022-0 Yes [id number] 10mg Take 1 [facility] 10 mg 2-23 tablet by ity of tablet 00:00: mouth in [place] 00 the Medical morning. Branch levocetiriz 2022-0 Yes [id number] 5mg Take 1 [facility] ine 5 mg 2-23 tablet by ity of tablet 00:00: mouth [place] 00 every Medical evening. Branch montelukast 2022-0 Yes [id number] 10mg Take 1 [facility] 10 mg 2-23 tablet by ity of tablet 00:00: mouth in [place] 00 the Medical morning. Branch levocetiriz 2022-0 Yes [id number] 5mg Take 1 [facility] ine 5 mg 2-23 tablet by ity of tablet 00:00: mouth [place] 00 every Medical evening. Branch montelukast 2022-0 Yes [id number] 10mg Take 1 [facility] 10 mg 2-23 tablet by ity of tablet 00:00: mouth in [place] 00 the Medical morning. Branch levocetiriz 2022-0 Yes [id number] 5mg Take 1 [facility] ine 5 mg 2-23 tablet by ity of tablet 00:00: mouth [place] 00 every Medical evening. Branch montelukast 2022-0 Yes [id number] 10mg Take 1 [facility] 10 mg 2-23 tablet by ity of tablet 00:00: mouth in [place] 00 the Medical morning. Branch levocetiriz 2022-0 Yes [id number] 5mg Take 1 [facility] ine 5 mg 2-23 tablet by ity of tablet 00:00: mouth [place] 00 every Medical evening. Branch montelukast 2022-0 Yes [id number] 10mg Take 1 [facility] 10 mg 2-23 tablet by ity of tablet 00:00: mouth in [place] 00 the Medical morning. Branch levocetiriz 2022-0 Yes [id number] 5mg Take 1 [facility] ine 5 mg 2-23 tablet by ity of tablet 00:00: mouth [place] 00 every Medical evening. Branch montelukast 2022-0 Yes [id number] 10mg Take 1 [facility] 10 mg 2-23 tablet by ity of tablet 00:00: mouth in [place] 00 the Medical morning. Branch levocetiriz 2022-0 Yes [id number] 5mg Take 1 [facility] ine 5 mg 2-23 tablet by ity of tablet 00:00: mouth [place] 00 every Medical evening. Branch montelukast 2022-0 Yes [id number] 10mg Take 1 [facility] 10 mg 2-23 tablet by ity of tablet 00:00: mouth in [place] 00 the Medical morning. Branch levocetiriz 2022-0 Yes [id number] 5mg Take 1 [facility] ine 5 mg 2-23 tablet by ity of tablet 00:00: mouth [place] 00 every Medical evening. Branch montelukast 2022-0 Yes [id number] 10mg Take 1 [facility] 10 mg 2-23 tablet by ity of tablet 00:00: mouth in [place] 00 the Medical morning. Branch levocetiriz 3-0 Yes [id number] 5mg Take 1 [facility] ine 5 mg 2-23 tablet by ity of tablet 00:00: mouth [place] 00 every Medical evening. Branch montelukast 2022-0 Yes [id number] 10mg Take 1 [facility] 10 mg 2-23 tablet by ity of tablet 00:00: mouth in [place] 00 the Medical morning. Branch levocetiriz 3-0 Yes [id number] 5mg Take 1 [facility] ine 5 mg 2-23 tablet by ity of tablet 00:00: mouth [place] 00 every Medical evening. Branch montelukast 2022-0 Yes [id number] 10mg Take 1 [facility] 10 mg 2-23 tablet by ity of tablet 00:00: mouth in [place] 00 the Medical morning. Branch levocetiriz 2022-0 Yes [id number] 5mg Take 1 [facility] ine 5 mg 2-23 tablet by ity of tablet 00:00: mouth [place] 00 every Medical evening. Branch montelukast 2022-0 2022- No [id number] 10mg Take 1 [facility] 10 mg 2-23 -15 tablet by ity of tablet 00:00: 00:00 mouth in [place] 00 :00 the Medical morning. Branch naproxen 2022- No [id number] 500mg Take 1 [facility] 500 mg -07-18 [id number] tablet by ity o f tablet 00:00: 00:00 mouth 2 [place] 00 :00 (two) Medical times Branch daily as needed for Pain (scale 4-6). furosemide 2022-2022- No [id number] Take once [facility] 20 mg 2-17 07- [id number] daily as ity of tablet 00:00: 00:[place] :[place] swelling [facility] furosemide 2022-0 2022- No [id number] Take once [facility] 20 mg 2-23 -15 [id number] daily as it[facility] of tablet 00:00: 00[place] :[place] [facility] methylPREDN 2022- Yes [id number] Take by [facility] ISolone 4 06-19 [id number] mouth ity of mg tablets 00:00: 05:59 SEE-INSTRU [place] 00 :00 CTIONS for Medical 6 days. Branch follow package directions methylPREDN 2022- Yes [id number] Take by [facility] ISolone 4 06-19 [id number] mouth ity of mg tablets 00:00: 05:59 SEE-INSTRU [place] 00 :00 CTIONS for Medical 6 days. Branch follow package directions methylPREDN 2022- Yes [id number] Take by [facility] ISolone 4 06-19 [id number] mouth ity of mg tablets 00:00: 05:59 SEE-INSTRU [place] 00 :00 CTIONS for Medical 6 days. Branch follow package directions Cholecalcif 2023-0 Yes Take by [facility] vers jenny, 1-27 mouth. ity of Vitamin D3, 14:39: [place] 50 mcg 12 Medical (2,000 Branch unit) tablet Cholecalcif 2023-0 Yes Take by [facility] vers jenny, 1-27 mouth. ity of Vitamin D3, 14:39: [place] 50 mcg 12 Medical (2,000 Branch unit) tablet Cholecalcif 2023-0 Yes Take by [facility] vers jenny, 1-27 mouth. ity of Vitamin D3, 14:39: [place] 50 mcg 12 Medical (2,000 Branch unit) tablet Cholecalcif 2023-0 Yes Take by [facility] vers jenny, 1-27 mouth. ity of Vitamin D3, 14:39: [place] 50 mcg 12 Medical (2,000 Branch unit) tablet Cholecalcif 2023-0 Yes Take by [facility] vers jenny, 1-27 mouth. ity of Vitamin D3, 14:39: [place] 50 mcg 12 Medical (2,000 Branch unit) tablet Cholecalcif 2023-0 Yes Take by [facility] vers jenny, 1-27 mouth. ity of Vitamin D3, 14:39: [place] 50 mcg 12 Medical (2,000 Branch unit) tablet Cholecalcif 2023-0 Yes Take by [facility] vers jenny, 1-27 mouth. ity of Vitamin D3, 14:39: [place] 50 mcg 12 Medical (2,000 Branch unit) tablet Cholecalcif 2023-0 Yes Take by [facility] vers jenny, 1-27 mouth. ity of Vitamin D3, 14:39: [place] 50 mcg 12 Medical (2,000 Branch unit) tablet rosuvastati 202-0 Yes [id number] 5mg Take 1 [facility] n 5 mg 1-27 tablet by ity of tablet 00:00: mouth in [place] 00 the Medical morning. Branch citalopram 3-0 Yes [id number] 20mg Take 1 U nivers 20 mg 1-27 tablet by ity of tablet 00:00: mouth in [place] 00 the Medical morning. Branch atenoloL 50 2022-0 Yes [id number] 50mg Take 1 U nivers mg tablet 1-27 tablet by ity o f 00:00: mouth in [place] 00 the Medical morning. Branch rOPINIRole 3-0 Yes [id number] 5mg Take 1 U nivers 5 mg tablet 1-27 tablet by ity of 00:00: mouth at [place] 00 bedtime. Medical Branch rosuvastati 2022-0 Yes [id number] 5mg Take 1 [facility] n 5 mg 1-27 tablet by ity of tablet 00:00: mouth in [place] 00 the Medical morning. Branch citalopram 2022-0 Yes [id number] 20mg Take 1 U nivers 20 mg 1-27 tablet by ity of tablet 00:00: mouth in [place] 00 the Medical morning. Branch atenoloL 50 2022-0 Yes [id number] 50mg Take 1 U nivers mg tablet 1-27 tablet by ity o f 00:00: mouth in [place] 00 the Medical morning. Branch rOPINIRole 2022-0 Yes [id number] 5mg Take 1 U nivers 5 mg tablet 1-27 tablet by ity of 00:00: mouth at [place] [address] bedtime. Medical Branch rosuvastati 2022-0 Yes [id number] 5mg Take 1 [facility] n 5 mg 1-27 tablet by ity of tablet 00:00: mouth in [place] the Medical morning. Branch citalopram 2022-0 Yes [id number] 20mg Take 1 U nivers 20 mg 1-27 tablet by ity of tablet 00:00: mouth in [place] the Medical morning. Branch atenoloL 50 2022-0 Yes [id number] 50mg Take 1 U nivers mg tablet 1-27 tablet by ity o f 00:00: mouth in [place] the Medical morning. Branch rOPINIRole 2022-0 Yes [id number] 5mg Take 1 U nivers 5 mg tablet 1-27 tablet by ity of 00:00: mouth at [place] [address] bedtime. Medical Branch rosuvastati 2022-0 Yes [id number] 5mg Take 1 [facility] n 5 mg 1-27 tablet by ity of tablet 00:00: mouth in [place] 00 the Medical morning. Branch citalopram 2022-0 Yes [id number] 20mg Take 1 U nivers 20 mg 1-27 tablet by ity of tablet 00:00: mouth in [place] 00 the Medical morning. Branch atenoloL 50 2022-0 Yes [id number] 50mg Take 1 U nivers mg tablet 1-27 tablet by ity o f 00:00: mouth in [place] 00 the Medical morning. Branch rOPINIRole 2022-0 Yes [id number] 5mg Take 1 U nivers 5 mg tablet 1-27 tablet by ity of 00:00: mouth at [place] 00 bedtime. Medical Branch rosuvastati 3-0 Yes [id number] 5mg Take 1 [facility] n 5 mg 1-27 tablet by ity of tablet 00:00: mouth in [place] 00 the Medical morning. Branch citalopram 2022-0 Yes [id number] 20mg Take 1 U nivers 20 mg 1-27 tablet by ity of tablet 00:00: mouth in [place] 00 the Medical morning. Branch atenoloL 50 2022-0 Yes [id number] 50mg Take 1 U nivers mg tablet 1-27 tablet by ity o f 00:00: mouth in [place] 00 the Medical morning. Branch rOPINIRole 2022-0 Yes [id number] 5mg Take 1 U nivers 5 mg tablet 1-27 tablet by ity of 00:00: mouth at [place] [address] bedtime. Medical Branch rosuvastati 2022-0 Yes [id number] 5mg Take 1 [facility] n 5 mg 1-27 tablet by ity of tablet 00:00: mouth in [place] the Medical morning. Branch citalopram 2022-0 Yes [id number] 20mg Take 1 U nivers 20 mg 1-27 tablet by ity of tablet 00:00: mouth in [place] 00 the Medical morning. Branch atenoloL 50 2022-0 Yes [id number] 50mg Take 1 U nivers mg tablet 1-27 tablet by ity o f 00:00: mouth in [place] 00 the Medical morning. Branch rOPINIRole 2022-0 Yes [id number] 5mg Take 1 U nivers 5 mg tablet 1-27 tablet by ity of 00:00: mouth at [place] [address] bedtime. Medical Branch rosuvastati 2022-0 Yes [id number] 5mg Take 1 [facility] n 5 mg 1-27 tablet by ity of tablet 00:00: mouth in [place] 00 the Medical morning. Branch citalopram 2022-0 Yes [id number] 20mg Take 1 U nivers 20 mg 1-27 tablet by ity of tablet 00:00: mouth in [place] 00 the Medical morning. Branch atenoloL 50 2022-0 Yes [id number] 50mg Take 1 U nivers mg tablet 1-27 tablet by ity o f 00:00: mouth in [place] 00 the Medical morning. Branch rOPINIRole 3-0 Yes [id number] 5mg Take 1 U nivers 5 mg tablet 1-27 tablet by ity of 00:00: mouth at [place] [address] bedtime. Medical Branch rosuvastati 3-0 Yes [id number] 5mg Take 1 [facility] n 5 mg 1-27 tablet by ity of tablet 00:00: mouth in [place] 00 the Medical morning. Branch citalopram 2022-0 Yes [id number] 20mg Take 1 U nivers 20 mg 1-27 tablet by ity of tablet 00:00: mouth in [place] 00 the Medical morning. Branch atenoloL 50 2022-0 Yes [id number] 50mg Take 1 U nivers mg tablet 1-27 tablet by ity o f 00:00: mouth in [place] the Medical morning. Branch rOPINIRole 2022-0 Yes [id number] 5mg Take 1 U nivers 5 mg tablet 1-27 tablet by ity of 00:00: mouth at [place] [address] bedtime. Medical Branch rosuvastati 2022-0 Yes [id number] 5mg Take 1 [facility] n 5 mg 1-27 tablet by ity of tablet 00:00: mouth in [place] the Medical morning. Branch citalopram 2022-0 Yes [id number] 20mg Take 1 U nivers 20 mg 1-27 tablet by ity of tablet 00:00: mouth in [place] the Medical morning. Branch atenoloL 50 2022-0 Yes [id number] 50mg Take 1 U nivers mg tablet 1-27 tablet by ity o f 00:00: mouth in [place] the Medical morning. Branch rOPINIRole 3-0 Yes [id number] 5mg Take 1 U nivers 5 mg tablet 1-27 tablet by ity of 00:00: mouth at [place] [address] bedtime. Medical Branch rosuvastati 3-0 Yes [id number] 5mg Take 1 [facility] n 5 mg 1-27 tablet by ity of tablet 00:00: mouth in [place] 00 the Medical morning. Branch citalopram 2022-0 Yes [id number] 20mg Take 1 U nivers 20 mg 1-27 tablet by ity of tablet 00:00: mouth in [place] 00 the Medical morning. Branch atenoloL 50 2022-0 Yes [id number] 50mg Take 1 U nivers mg tablet 1-27 tablet by ity o f 00:00: mouth in [place] 00 the Medical morning. Branch rOPINIRole 3-0 Yes [id number] 5mg Take 1 U nivers 5 mg tablet 1-27 tablet by ity of 00:00: mouth at [place] [address] bedtime. Medical Branch rosuvastati 3-0 Yes [id number] 5mg Take 1 [facility] n 5 mg 1-27 tablet by ity of tablet 00:00: mouth in [place] 00 the Medical morning. Branch citalopram 2022-0 Yes [id number] 20mg Take 1 U nivers 20 mg 1-27 tablet by ity of tablet 00:00: mouth in [place] 00 the Medical morning. Branch atenoloL 50 2022-0 Yes [id number] 50mg Take 1 U nivers mg tablet 1-27 tablet by ity o f 00:00: mouth in [place] 00 the Medical morning. Branch rOPINIRole 2022-0 Yes [id number] 5mg Take 1 U nivers 5 mg tablet 1-27 tablet by ity of 00:00: mouth at [place] [address] bedtime. Medical Branch rosuvastati 2022-0 Yes [id number] 5mg Take 1 [facility] n 5 mg 1-27 tablet by ity of tablet 00:00: mouth in [place] the Medical morning. Branch citalopram 2022-0 Yes [id number] 20mg Take 1 U nivers 20 mg 1-27 tablet by ity of tablet 00:00: mouth in [place] the Medical morning. Branch atenoloL 50 2022-0 Yes [id number] 50mg Take 1 U nivers mg tablet 1-27 tablet by ity o f 00:00: mouth in [place] 00 the Medical morning. Branch rOPINIRole 3-0 Yes [id number] 5mg Take 1 U nivers 5 mg tablet 1-27 tablet by ity of 00:00: mouth at [place] [address] bedtime. Medical Branch rosuvastati 3-0 Yes [id number] 5mg Take 1 [facility] n 5 mg 1-27 tablet by ity of tablet 00:00: mouth in [place] 00 the Medical morning. Branch citalopram 3-0 Yes [id number] 20mg Take 1 U nivers 20 mg 1-27 tablet by ity of tablet 00:00: mouth in [place] 00 the Medical morning. Branch atenoloL 50 2022-0 Yes [id number] 50mg Take 1 U nivers mg tablet 1-27 tablet by ity o f 00:00: mouth in [place] 00 the Medical morning. Branch rOPINIRole 3-0 Yes [id number] 5mg Take 1 U nivers 5 mg tablet 1-27 tablet by ity of 00:00: mouth at [place] [address] bedtime. Medical Branch rosuvastati 3-0 Yes [id number] 5mg Take 1 [facility] n 5 mg 1-27 tablet by ity of tablet 00:00: mouth in [place] 00 the Medical morning. Branch citalopram 2022-0 Yes [id number] 20mg Take 1 U nivers 20 mg 1-27 tablet by ity of tablet 00:00: mouth in [place] 00 the Medical morning. Branch atenoloL 50 2022-0 Yes [id number] 50mg Take 1 U nivers mg tablet 1-27 tablet by ity o f 00:00: mouth in [place] the Medical morning. Branch rOPINIRole 2022-0 Yes [id number] 5mg Take 1 U nivers 5 mg tablet 1-27 tablet by ity of 00:00: mouth at [place] [address] bedtime. Medical Branch rosuvastati 2022-0 Yes [id number] 5mg Take 1 [facility] n 5 mg 1-27 tablet by ity of tablet 00:00: mouth in [place] the Medical morning. Branch citalopram 2022-0 Yes [id number] 20mg Take 1 U nivers 20 mg 1-27 tablet by ity of tablet 00:00: mouth in [place] the Medical morning. Branch atenoloL 50 2022-0 Yes [id number] 50mg Take 1 U nivers mg tablet 1-27 tablet by ity o f 00:00: mouth in [place] 00 the Medical morning. Branch rOPINIRole 3-0 Yes [id number] 5mg Take 1 U nivers 5 mg tablet 1-27 tablet by ity of 00:00: mouth at [place] [address] bedtime. Medical Branch rosuvastati 3-0 Yes [id number] 5mg Take 1 [facility] n 5 mg 1-27 tablet by ity of tablet 00:00: mouth in [place] 00 the Medical morning. Branch citalopram 3-0 Yes [id number] 20mg Take 1 U nivers 20 mg 1-27 tablet by ity of tablet 00:00: mouth in [place] 00 the Medical morning. Branch atenoloL 50 2022-0 Yes [id number] 50mg Take 1 U nivers mg tablet 1-27 tablet by ity o f 00:00: mouth in [place] the Medical morning. Branch rOPINIRole 3-0 Yes [id number] 5mg Take 1 U nivers 5 mg tablet 1-27 tablet by ity of 00:00: mouth at [place] [address] bedtime. Medical Branch rosuvastati 3-0 Yes [id number] 5mg Take 1 [facility] n 5 mg 1-27 tablet by ity of tablet 00:00: mouth in [place] the Medical morning. Branch citalopram 2022-0 Yes [id number] 20mg Take 1 U nivers 20 mg 1-27 tablet by ity of tablet 00:00: mouth in [place] the Medical morning. Branch atenoloL 50 2022-0 Yes [id number] 50mg Take 1 U nivers mg tablet 1-27 tablet by ity o f 00:00: mouth in [place] the Medical morning. Branch rOPINIRole 2022-0 Yes [id number] 5mg Take 1 U nivers 5 mg tablet 1-27 tablet by ity of 00:00: mouth at [place] [address] bedtime. Medical Branch rosuvastati 3-0 Yes [id number] 5mg Take 1 [facility] n 5 mg 1-27 tablet by ity of tablet 00:00: mouth in [place] the Medical morning. Branch citalopram 2022-0 Yes [id number] 20mg Take 1 U nivers 20 mg 1-27 tablet by ity of tablet 00:00: mouth in [place] the Medical morning. Branch atenoloL 50 2022-0 Yes [id number] 50mg Take 1 U nivers mg tablet 1-27 tablet by ity o f 00:00: mouth in [place] the Medical morning. Branch rOPINIRole 3-0 Yes [id number] 5mg Take 1 U nivers 5 mg tablet 1-27 tablet by ity of 00:00: mouth at [place] [address] bedtime. Medical Branch rosuvastati 3-0 Yes [id number] 5mg Take 1 [facility] n 5 mg 1-27 tablet by ity of tablet 00:00: mouth in [place] 00 the Medical morning. Branch citalopram 3-0 Yes [id number] 20mg Take 1 U nivers 20 mg 1-27 tablet by ity of tablet 00:00: mouth in [place] the Medical morning. Branch atenoloL 50 2022-0 Yes [id number] 50mg Take 1 U nivers mg tablet 1-27 tablet by ity o f 00:00: mouth in [place] the Medical morning. Branch rOPINIRole 3-0 Yes [id number] 5mg Take 1 U nivers 5 mg tablet 1-27 tablet by ity of 00:00: mouth at [place] [address] bedtime. Medical Branch rosuvastati 3-0 Yes [id number] 5mg Take 1 [facility] n 5 mg 1-27 tablet by ity of tablet 00:00: mouth in [place] the Medical morning. Branch citalopram 2022-0 Yes [id number] 20mg Take 1 U nivers 20 mg 1-27 tablet by ity of tablet 00:00: mouth in [place] the Medical morning. Branch atenoloL 50 2022-0 Yes [id number] 50mg Take 1 U nivers mg tablet 1-27 tablet by ity o f 00:00: mouth in [place] the Medical morning. Branch rOPINIRole 3-0 Yes [id number] 5mg Take 1 U nivers 5 mg tablet 1-27 tablet by ity of 00:00: mouth at [place] [address] bedtime. Medical Branch rosuvastati 3-0 Yes [id number] 5mg Take 1 [facility] n 5 mg 1-27 tablet by ity of tablet 00:00: mouth in [place] the Medical morning. Branch citalopram 3-0 Yes [id number] 20mg Take 1 U nivers 20 mg 1-27 tablet by ity of tablet 00:00: mouth in [place] the Medical morning. Branch atenoloL 50 2022-0 Yes [id number] 50mg Take 1 U nivers mg tablet 1-27 tablet by ity o f 00:00: mouth in [place] the Medical morning. Branch rOPINIRole 3-0 Yes [id number] 5mg Take 1 U nivers 5 mg tablet 1-27 tablet by ity of 00:00: mouth at [place] [address] bedtime. Medical Branch rosuvastati 2023-0 Yes [id number] 5mg Take 1 Univers n 5 mg 1-27 tablet by [facility] of tablet 00:00: mouth in [place] 00 the Medical morning. Branch citalopram 2022-0 Yes [id number] 20mg Take 1 [facility] 20 mg 1-27 tablet by [facility] of tablet 00:00: mouth in [place] the Medical morning. Branch atenoloL 50 2022-0 Yes [id number] 50mg Take 1 [facility] mg tablet 1-27 tablet by ity o f 00:00: mouth in [place] the Medical morning. Branch rOPINIRole 2022-0 Yes [id number] 5mg Take 1 [facility] 5 mg tablet 1-27 tablet by ity of 00:00: mouth at [place] [address] bedtime. Medical Branch rosuvastati 2022-0 Yes [id number] 5mg Take 1 [facility] 5 mg 1-27 tablet by [facility] of tablet 00:00: mouth in [place] the Medical morning. Branch citalopram 2022-0 Yes [id number] 20mg Take 1 [facility] n[facility] 20 mg 1-27 tablet by [facility] of tablet 00:00: mouth in [place] the Medical morning. Branch atenoloL 50 2022-0 Yes [id number] 50mg Take 1 [facility] n[facility] mg tablet 1-27 tablet by ity o f 00:00: mouth in [place] the Medical morning. Branch rOPINIRole 2022-0 Yes [id number] 5mg Take 1 [facility] n[facility] 5 mg tablet 1-27 tablet by [facility]y of 00:00: mouth at [place] [address] bedtime. Medical Branch rosuvastati 2022-0 Yes [id number] 5mg Take 1 [facility] n 5 mg 1-27 tablet by [facility] of tablet 00:00: mouth in [place] the Medical morning. Branch citalopram 2022-0 Yes [id number] 20mg Take 1 [facility] n[facility] 20 mg 1-27 tablet by [facility] of tablet 00:00: mouth in [place] the Medical morning. Branch atenoloL 50 2022-0 Yes [id number] 50mg Take 1 [facility] n[facility] mg tablet 1-27 tablet by ity o f 00:00: mouth in [place] 00 the Medical morning. Branch rOPINIRole 2022-0 Yes [id number] 5mg Take 1 [facility] n[facility] 5 mg tablet 1-27 tablet by ity of 00:00: mouth at [place] [address] bedtime. Medical Branch rosuvastati 3-0 Yes [id number] 5mg Take 1 [facility] n 5 mg 1-27 tablet by [facility] of tablet 00:00: mouth in [place] 00 the Medical morning. Branch citalopram 2022-0 Yes [id number] 20mg Take 1 [facility] 20 mg 1-27 tablet by [facility] of tablet 00:00: mouth in [place] 00 the Medical morning. Branch atenoloL 50 2022-0 Yes [id number] 50mg Take 1 [facility] mg tablet 1-27 tablet by ity o f 00:00: mouth in [place] the Medical morning. Branch rOPINIRole 2022-0 Yes [id number] 5mg Take 1 [facility] 5 mg tablet 1-27 tablet by [facility]y of 00:00: mouth at [place] [address] bedtime. Medical Branch rosuvastati 2022-0 Yes [id number] 5mg Take 1 [facility] n 5 mg 1-27 tablet by [facility] of tablet 00:00: mouth in [place] 00 the Medical morning. Branch citalopram 2022-0 Yes [id number] 20mg Take 1 [facility] 20 mg 1-27 tablet by [facility] of tablet 00:00: mouth in [place] the Medical morning. Branch atenoloL 50 2022-0 Yes [id number] 50mg Take 1 [facility] mg tablet 1-27 tablet by ity o f 00:00: mouth in [place] the Medical morning. Branch rOPINIRole 2022-0 Yes [id number] 5mg Take 1 [facility] 5 mg tablet 1-27 tablet by [facility] of 00:00: mouth at [place] [address] bedtime. Medical Branch rosuvastati 2022-0 Yes [id number] 5mg Take 1 [facility] n 5 mg 1-23 tablet by [facility] of tablet 00:00: mouth in [place] 00 the Medical morning. Branch rosuvastati 2022-0 Yes [id number] 5mg Take 1 [facility] n 5 mg 1-23 tablet by [facility] of tablet 00:00: mouth in [place] 00 the Medical morning. Branch rosuvastati 2022-0 Yes [id number] 5mg Take 1 [facility] n 5 mg 1-23 tablet by [facility] of tablet 00:00: mouth in [place] 00 the Medical morning. Branch rosuvastati 2022-0 2023- No [id number] 5mg Take 1 [facility] n 5 mg 1-23 01-27 tablet by ity of tablet 00:00: 00:00 mouth in [place] 00 :00 the Medical morning. Branch rosuvastati 2022- No [id number] 5mg Take 1 [facility] n 5 mg 05-19 tablet by it[facility] of tablet 00:00: 00:00 mouth in [place] 00 :00 the Medical morning. Branch proMETHazin 2021-04- No 25mg 25 mg, IV [facility] e 04-26 Piggyback, ity of (PHENERGAN) 05:00: 05:03 ONCE, 1 [place] 25 mg in 00 :00 dose, On Medical NaCl 0.9% Fri Branch (NS) 50 mL 04/25/22 IV at 2300, piggyback TRICIA iopamidol 2021-04- No [id number] 100mL 100 mL, Univers (ISOVUE 04-26 Intravenou ity o f 370-500 mL) 03:45: 02:49 s, ONCE, 1 [place] injection 00 :00 dose, On Medica l 100 mL Fri Branch 04/25/22 at 2145, Routine ondansetron 2021-04- No 4mg 4 mg, Slow [facility] (ZOFRAN 04-26 IV Push, ity of (PF)) 02:30: 02:25 ONCE, 1 [place] injection 4 00 :00 dose, On Medi tamra mg Fri Branch 04/25/22 at 2030, TRICIA proMETHazin 2021-04 Yes [id number] 25mg Take 1 [facility] e 25 mg 2-30 tablet by ity of tablet 00:00: mouth [place] [address] every 4 Medical (four) Branch hours as needed for Nausea and Vomiting (N/V). proMETHazin 2021-04 Yes [id number] 25mg Take 1 [facility] e 25 mg 2-30 tablet by [facility]y of tablet 00:00: mouth [place] [address] every 4 Medical (four) Branch hours as needed for Nausea and Vomiting (N/V). proMETHazin 2021-04 Yes [id number] 25mg Take 1 [facility] e 25 mg 2-30 tablet by ity of tablet 00:00: mouth [place] [address] every 4 Medical (four) Branch hours as needed for Nausea and Vomiting (N/V). proMETHazin 2021-04 Yes [id number] 25mg Take 1 [facility] e 25 mg 2-30 tablet by ity of tablet 00:00: mouth [place] 00 every 4 Medical (four) Branch hours as needed for Nausea and Vomiting (N/V). proMETHazin 2021-04 Yes [id number] 25mg Take 1 [facility] e 25 mg 2-30 tablet by ity of tablet 00:00: mouth [place] 00 every 4 Medical (four) Branch hours as needed for Nausea and Vomiting (N/V). proMETHazin 2021-04 Yes [id number] 25mg Take 1 [facility] e 25 mg 2-30 tablet by ity of tablet 00:00: mouth [place] 00 every 4 Medical (four) Branch hours as needed for Nausea and Vomiting (N/V). proMETHazin 2021-04 Yes [id number] 25mg Take 1 [facility] e 25 mg 2-30 tablet by ity of tablet 00:00: mouth [place] 00 every 4 Medical (four) Branch hours as needed for Nausea and Vomiting (N/V). proMETHazin 2021-04 Yes [id number] 25mg Take 1 [facility] e 25 mg 2-30 tablet by [facility]y of tablet 00:00: mouth [place] 00 every 4 Medical (four) Branch hours as needed for Nausea and Vomiting (N/V). proMETHazin 2021-04 Yes [id number] 25mg Take 1 [facility] e 25 mg 2-30 tablet by [facility]y of tablet 00:00: mouth [place] 00 every 4 Medical (four) Branch hours as needed for Nausea and Vomiting (N/V). proMETHazin 2021-04 Yes [id number] 25mg Take 1 [facility] e 25 mg 2-30 tablet by ity of tablet 00:00: mouth [place] 00 every 4 Medical (four) Branch hours as needed for Nausea and Vomiting (N/V). proMETHazin 2021-04 Yes [id number] 25mg Take 1 [facility] e 25 mg 2-30 tablet by ity of tablet 00:00: mouth [place] 00 every 4 Medical (four) Branch hours as needed for Nausea and Vomiting (N/V). proMETHazin 2021-04 Yes [id number] 25mg Take 1 [facility] e 25 mg 2-30 tablet by ity of tablet 00:00: mouth [place] 00 every 4 Medical (four) Branch hours as needed for Nausea and Vomiting (N/V). proMETHazin 2021-04 Yes [id number] 25mg Take 1 [facility] e 25 mg 2-30 tablet by ity of tablet 00:00: mouth [place] 00 every 4 Medical (four) Branch hours as needed for Nausea and Vomiting (N/V). proMETHazin 2021-04 Yes [id number] 25mg Take 1 [facility] e 25 mg 2-30 tablet by ity of tablet 00:00: mouth [place] 00 every 4 Medical (four) Branch hours as needed for Nausea and Vomiting (N/V). proMETHazin 2021-04 Yes [id number] 25mg Take 1 [facility] e 25 mg 2-30 tablet by ity of tablet 00:00: mouth [place] 00 every 4 Medical (four) Branch hours as needed for Nausea and Vomiting (N/V). proMETHazin 2021-04 Yes [id number] 25mg Take 1 [facility] e 25 mg 2-30 tablet by ity of tablet 00:00: mouth [place] 00 every 4 Medical (four) Branch hours as needed for Nausea and Vomiting (N/V). proMETHazin 2021-04 Yes [id number] 25mg Take 1 [facility] e 25 mg 2-30 tablet by ity of tablet 00:00: mouth [place] 00 every 4 Medical (four) Branch hours as needed for Nausea and Vomiting (N/V). proMETHazin 2021-04 Yes [id number] 25mg Take 1 [facility] e 25 mg 2-30 tablet by ity of tablet 00:00: mouth [place] 00 every 4 Medical (four) Branch hours as needed for Nausea and Vomiting (N/V). proMETHazin 2021-04 Yes [id number] 25mg Take 1 [facility] e 25 mg 2-30 tablet by ity of tablet 00:00: mouth [place] 00 every 4 Medical (four) Branch hours as needed for Nausea and Vomiting (N/V). proMETHazin 2021-04 Yes [id number] 25mg Take 1 [facility] e 25 mg 2-30 tablet by ity of tablet 00:00: mouth [place] 00 every 4 Medical (four) Branch hours as needed for Nausea and Vomiting (N/V). proMETHazin 2021-04 Yes [id number] 25mg Take 1 [facility] e 25 mg 2-30 tablet by ity of tablet 00:00: mouth [place] 00 every 4 Medical (four) Branch hours as needed for Nausea and Vomiting (N/V). proMETHazin 2021-04 Yes [id number] 25mg Take 1 [facility] e 25 mg 2-30 tablet by ity of tablet 00:00: mouth [place] 00 every 4 Medical (four) Branch hours as needed for Nausea and Vomiting (N/V). proMETHazin 2021-04 Yes [id number] 25mg Take 1 [facility] e 25 mg 2-30 tablet by ity of tablet 00:00: mouth [place] 00 every 4 Medical (four) Branch hours as needed for Nausea and Vomiting (N/V). proMETHazin 2021-04 Yes [id number] 25mg Take 1 [facility] e 25 mg 2-30 tablet by ity of tablet 00:00: mouth [place] 00 every 4 Medical (four) Branch hours as needed for Nausea and Vomiting (N/V). proMETHazin 2021-04 Yes [id number] 25mg Take 1 [facility] e 25 mg 2-30 tablet by ity of tablet 00:00: mouth [place] 00 every 4 Medical (four) Branch hours as needed for Nausea and Vomiting (N/V). proMETHazin 2021-04 Yes [id number] 25mg Take 1 [facility] e 25 mg 2-30 tablet by ity of tablet 00:00: mouth [place] 00 every 4 Medical (four) Branch hours as needed for Nausea and Vomiting (N/V). proMETHazin 2021-04 Yes [id number] 25mg Take 1 [facility] e 25 mg 2-30 tablet by ity of tablet 00:00: mouth [place] 00 every 4 Medical (four) Branch hours as needed for Nausea and Vomiting (N/V). proMETHazin 2021-04 Yes [id number] 25mg Take 1 [facility] e 25 mg 2-30 tablet by ity of tablet 00:00: mouth [place] 00 every 4 Medical (four) Branch hours as needed for Nausea and Vomiting (N/V). proMETHazin 2021-04 Yes [id number] 25mg Take 1 [facility] e 25 mg 2-30 tablet by ity of tablet 00:00: mouth [place] 00 every 4 Medical (four) Branch hours as needed for Nausea and Vomiting (N/V). proMETHazin 2021-04 Yes [id number] 25mg Take 1 [facility] e 25 mg 2-30 tablet by ity of tablet 00:00: mouth [place] 00 every 4 Medical (four) Branch hours as needed for Nausea and Vomiting (N/V). ALPRAZOLAM 2021-04 Yes [id number] .25mg TAKE 1 [facility] 0.25 mg 2-08 TABLET BY ity of tablet 00:00: MOUTH 3 [place] 00 (THREE) Medical TIMES Branch DAILY NEEDED FOR OTHER (ANXIETY). ALPRAZOLAM 2021-04 Yes [id number] .25mg TAKE 1 [facility] 0.25 mg 2-08 TABLET BY ity of tablet 00:00: MOUTH 3 [place] 00 (THREE) Medical TIMES Branch DAILY NEEDED FOR OTHER (ANXIETY). ALPRAZOLAM 2021-04 Yes [id number] .25mg TAKE 1 [facility] 0.25 mg 2-08 TABLET BY ity of tablet 00:00: MOUTH 3 [place] 00 (THREE) Medical TIMES Branch DAILY NEEDED FOR OTHER (ANXIETY). ALPRAZOLAM 2021-04 Yes [id number] .25mg TAKE 1 [facility] 0.25 mg 2-08 TABLET BY ity of tablet 00:00: MOUTH 3 [place] 00 (THREE) Medical TIMES Branch DAILY NEEDED FOR OTHER (ANXIETY). ALPRAZOLAM 2021-04 Yes [id number] .25mg TAKE 1 [facility] 0.25 mg 2-08 TABLET BY ity of tablet 00:00: MOUTH 3 00 (THREE) Medical TIMES Branch DAILY NEEDED FOR OTHER (ANXIETY). ALPRAZOLAM 2021-04 Yes [id number] .25mg TAKE 1 [facility] 0.25 mg 2-08 TABLET BY ity of tablet 00:00: MOUTH 3 00 (THREE) Medical TIMES Branch DAILY NEEDED FOR OTHER (ANXIETY). ALPRAZOLAM 2021-04 Yes [id number] .25mg TAKE 1 [facility] 0.25 mg 2-08 TABLET BY ity of tablet 00:00: MOUTH 3 00 (THREE) Medical TIMES Branch DAILY NEEDED FOR OTHER (ANXIETY). ALPRAZOLAM 2021-04 Yes [id number] .25mg TAKE 1 [facility] 0.25 mg 2-08 TABLET BY ity of tablet 00:00: MOUTH 3 00 (THREE) Medical TIMES Branch DAILY NEEDED FOR OTHER (ANXIETY). ALPRAZOLAM 2021-04 Yes [id number] .25mg TAKE 1 [facility] 0.25 mg 2-08 TABLET BY ity of tablet 00:00: MOUTH 3 [place] 00 (THREE) Medical TIMES Branch DAILY NEEDED FOR OTHER (ANXIETY). ALPRAZOLAM 2021-04 Yes [id number] .25mg TAKE 1 [facility] 0.25 mg 2-08 TABLET BY ity of tablet 00:00: MOUTH 3 (THREE) Medical TIMES Branch DAILY NEEDED FOR OTHER (ANXIETY). ALPRAZOLAM 2021-04 Yes [id number] .25mg TAKE 1 [facility] 0.25 mg 2-08 TABLET BY ity of tablet 00:00: MOUTH 3 (THREE) Medical TIMES Branch DAILY NEEDED FOR OTHER (ANXIETY). ALPRAZOLAM 2021-04 Yes [id number] .25mg TAKE 1 [facility] 0.25 mg 2-08 TABLET BY ity of tablet 00:00: MOUTH 3 (THREE) Medical TIMES Branch DAILY NEEDED FOR OTHER (ANXIETY). ALPRAZOLAM 2021-04 Yes [id number] .25mg TAKE 1 [facility] 0.25 mg 2-08 TABLET BY ity of tablet 00:00: MOUTH 3 (THREE) Medical TIMES Branch DAILY NEEDED FOR OTHER (ANXIETY). ALPRAZOLAM 2021-04 Yes [id number] .25mg TAKE 1 [facility] 0.25 mg 2-08 TABLET BY ity of tablet 00:00: MOUTH 3 (THREE) Medical TIMES Branch DAILY NEEDED FOR OTHER (ANXIETY). ALPRAZOLAM 2021-04 Yes [id number] .25mg TAKE 1 [facility] 0.25 mg 2-08 TABLET BY ity of tablet 00:00: MOUTH 3 (THREE) Medical TIMES Branch DAILY NEEDED FOR OTHER (ANXIETY). ALPRAZOLAM 2021-04 Yes [id number] .25mg TAKE 1 [facility] 0.25 mg 2-08 TABLET BY ity of tablet 00:00: MOUTH 3 (THREE) Medical TIMES Branch DAILY NEEDED FOR OTHER (ANXIETY). ALPRAZOLAM 2021-04 Yes [id number] .25mg TAKE 1 [facility] 0.25 mg 2-08 TABLET BY ity of tablet 00:00: MOUTH 3 (THREE) Medical TIMES Branch DAILY NEEDED FOR OTHER (ANXIETY). ALPRAZOLAM 2021-04 Yes [id number] .25mg TAKE 1 [facility] 0.25 mg 2-08 TABLET BY ity of tablet 00:00: MOUTH 3 (THREE) Medical TIMES Branch DAILY NEEDED FOR OTHER (ANXIETY). ALPRAZOLAM 2021-04 Yes [id number] .25mg TAKE 1 [facility] 0.25 mg 2-08 TABLET BY ity of tablet 00:00: MOUTH 3 (THREE) Medical TIMES Branch DAILY NEEDED FOR OTHER (ANXIETY). ALPRAZOLAM 2021-04 Yes [id number] .25mg TAKE 1 [facility] 0.25 mg 2-08 TABLET BY ity of tablet 00:00: MOUTH 3 [place] 00 (THREE) Medical TIMES Branch DAILY NEEDED FOR OTHER (ANXIETY). ALPRAZOLAM 2021-04 Yes [id number] .25mg TAKE 1 [facility] 0.25 mg 2-08 TABLET BY ity of tablet 00:00: MOUTH 3 [place] 00 (THREE) Medical TIMES Branch DAILY NEEDED FOR OTHER (ANXIETY). ALPRAZOLAM 2021-04 Yes [id number] .25mg TAKE 1 [facility] 0.25 mg 2-08 TABLET BY ity of tablet 00:00: MOUTH 3 00 (THREE) Medical TIMES Branch DAILY NEEDED FOR OTHER (ANXIETY). ALPRAZOLAM 2021-04 Yes [id number] .25mg TAKE 1 [facility] 0.25 mg 2-08 TABLET BY ity of tablet 00:00: MOUTH 3 00 (THREE) Medical TIMES Branch DAILY NEEDED FOR OTHER (ANXIETY). ALPRAZOLAM 2021-04 Yes [id number] .25mg TAKE 1 [facility] 0.25 mg 2-08 TABLET BY ity of tablet 00:00: MOUTH 3 00 (THREE) Medical TIMES Branch DAILY NEEDED FOR OTHER (ANXIETY). ALPRAZOLAM 2021-04 Yes [id number] .25mg TAKE 1 [facility] 0.25 mg 2-08 TABLET BY ity of tablet 00:00: MOUTH 3 00 (THREE) Medical TIMES Branch DAILY NEEDED FOR OTHER (ANXIETY). ALPRAZOLAM 2021-04 Yes [id number] .25mg TAKE 1 [facility] 0.25 mg 2-08 TABLET BY ity of tablet 00:00: MOUTH 3 00 (THREE) Medical TIMES Branch DAILY NEEDED FOR OTHER (ANXIETY). ALPRAZOLAM 2021-04 Yes [id number] .25mg TAKE 1 [facility] 0.25 mg 2-08 TABLET BY ity of tablet 00:00: MOUTH 3 00 (THREE) Medical TIMES Branch DAILY NEEDED FOR OTHER (ANXIETY). ALPRAZOLAM 2021-04 Yes [id number] .25mg TAKE 1 [facility] 0.25 mg 2-08 TABLET BY ity of tablet 00:00: MOUTH 3 00 (THREE) Medical TIMES Branch DAILY NEEDED FOR OTHER (ANXIETY). ALPRAZOLAM 2021-04 Yes [id number] .25mg TAKE 1 [facility] 0.25 mg 2-08 TABLET BY ity of tablet 00:00: MOUTH 3 00 (THREE) Medical TIMES Branch DAILY NEEDED FOR OTHER (ANXIETY). ALPRAZOLAM 2021-04 Yes [id number] .25mg TAKE 1 [facility] 0.25 mg 2-08 TABLET BY ity of tablet 00:00: MOUTH 3 00 (THREE) Medical TIMES Branch DAILY NEEDED FOR OTHER (ANXIETY). ALPRAZOLAM 2021-04 Yes [id number] .25mg TAKE 1 [facility] 0.25 mg 2-08 TABLET BY ity of tablet 00:00: MOUTH 3 00 (THREE) Medical TIMES Branch DAILY NEEDED FOR OTHER (ANXIETY). ROPINIROLE 2021-04 Yes [id number] TAKE 1 [facility] 5 mg tablet 1-15 TABLET BY ity of 00:00: MOUTH [place] 00 EVERYDAY Medical AT BEDTIME Branch ATENOLOL 50 2021-04 Yes [id number] TAKE 1 [facility] n[facility] mg tablet 1-15 TABLET BY ity o f 00:00: MOUTH 00 EVERY DAY Medical Branch ROPINIROLE 2021-04 Yes [id number] TAKE 1 [facility] 5 mg tablet 1-15 TABLET BY ity of 00:00: MOUTH 00 EVERYDAY Medical AT BEDTIME Branch ATENOLOL 50 2021-04 Yes [id number] TAKE 1 [facility] mg tablet 1-15 TABLET BY ity o f 00:00: MOUTH [place] EVERY DAY Medical Branch ROPINIROLE 2021-04 Yes [id number] TAKE 1 [facility] 5 mg tablet 1-15 TABLET BY ity of 00:00: MOUTH 00 EVERYDAY Medical AT BEDTIME Branch ATENOLOL 50 2021-04 Yes [id number] TAKE 1 [facility] mg tablet 1-15 TABLET BY ity o f 00:00: MOUTH [place] 00 EVERY DAY Medical Branch ROPINIROLE 2021-04 Yes [id number] TAKE 1 [facility] 5 mg tablet 1-15 TABLET BY ity of 00:00: MOUTH [place] 00 EVERYDAY Medical AT BEDTIME Branch ATENOLOL 50 2021-04 Yes [id number] TAKE 1 [facility] nivers mg tablet 1-15 TABLET BY ity o f 00:00: MOUTH [place] EVERY DAY Medical Branch ROPINIROLE 2021-04 Yes [id number] TAKE 1 [facility] 5 mg tablet 1-15 TABLET BY ity of 00:00: MOUTH [place] 00 EVERYDAY Medical AT BEDTIME Branch ATENOLOL 50 2021-04 Yes [id number] TAKE 1 [facility] n[facility] mg tablet 1-15 TABLET BY ity o f 00:00: MOUTH [place] 00 EVERY DAY Medical Branch ROPINIROLE 2021-04 Yes [id number] TAKE 1 [facility] 5 mg tablet 1-15 TABLET BY ity of 00:00: MOUTH [place] 00 EVERYDAY Medical AT BEDTIME Branch ATENOLOL 50 2021-04 Yes [id number] TAKE 1 [facility] mg tablet 1-15 TABLET BY ity o f 00:00: MOUTH [place] EVERY DAY Medical Branch ROPINIROLE 2021-04 Yes [id number] TAKE 1 [facility] 5 mg tablet 1-15 TABLET BY ity of 00:00: MOUTH [place] 00 EVERYDAY Medical AT BEDTIME Branch ATENOLOL 50 2021-04 Yes [id number] TAKE 1 [facility] mg tablet 1-15 TABLET BY ity o f 00:00: MOUTH [place] EVERY DAY Medical Branch ROPINIROLE 2021-04- No [id number] TAKE 1 [facility] 5 mg tablet 1-15 27 TABLET BY it y of 00:00: 00:00 MOUTH [place] 00 :00 EVERYDAY Medical AT BEDTIME Branch ATENOLOL 50 2021-04- No [id number] TAKE 1 [facility] mg tablet 1-15 - TABLET BY ity of 00:00: 00:00 MOUTH [place] 00 :00 EVERY DAY Medical Branch ROPINIROLE 2021-04- No [id number] TAKE 1 [facility] 5 mg tablet 1-15 27 TABLET BY it y of 00:00: 00:00 MOUTH [place] 00 :00 EVERYDAY Medical AT BEDTIME Branch ATENOLOL 50 2021-04- No [id number] TAKE 1 [facility] mg tablet 1-15 05-23 TABLET BY ity of 00:00: 00:00 MOUTH [place] 00 :00 EVERY DAY Medical Branch benzonatate 2021-04 Yes [id number] 100mg Take 1 [facility] (TESSALON 1-08 capsule by [facility]) 100 00:00: mouth 3 [place] as mg capsule 00 (three) Medica l times Branch daily as needed for Cough. benzonatate 2021-04 Yes [id number] 100mg Take 1 [facility] (TESSALON 1-08 capsule by [facility]) 100 00:00: mouth 3 [place] mg capsule 00 (three) Medica l times Branch daily as needed for Cough. benzonatate 2021-04 Yes [id number] 100mg Take 1 [facility] (TESSALON 1-08 capsule by ity of [place]) 100 00:00: mouth 3 [place] mg capsule 00 (three) Medica l times Branch daily as needed for Cough. benzonatate 2021-04 Yes [id number] 100mg Take 1 [facility] (TESSALON 1-08 capsule by ity of [place]) 100 00:00: mouth 3 [place] mg capsule 00 (three) Medica l times Branch daily as needed for Cough. benzonatate 2021-04 Yes [id number] 100mg Take 1 [facility] (TESSALON 1-08 capsule by ity of [place]LES) 100 00:00: mouth 3 [place] mg capsule 00 (three) Medica l times Branch daily as needed for Cough. benzonatate 2021-04 Yes [id number] 100mg Take 1 [facility] (TESSALON 1-08 capsule by ity of PERLES) 100 00:00: mouth 3 [place] mg capsule 00 (three) Medica l times Branch daily as needed for Cough. benzonatate 2021-04 Yes [id number] 100mg Take 1 [facility] (TESSALON 1-08 capsule by ity of [place]) 100 00:00: mouth 3 [place] mg capsule 00 (three) Medica l times Branch daily as needed for Cough. benzonatate 2021-04 Yes [id number] 100mg Take 1 [facility] (TESSALON 1-08 capsule by ity of [place]) 100 00:00: mouth 3 [place] mg capsule 00 (three) Medica l times Branch daily as needed for Cough. benzonatate 2021-04 Yes [id number] 100mg Take 1 [facility] (TESSALON 1-08 capsule by ity of PER[place]) 100 00:00: mouth 3 [place] mg capsule 00 (three) Medica l times Branch daily as needed for Cough. benzonatate 2021-04 Yes [id number] 100mg Take 1 [facility] (TESSALON 1-08 capsule by ity of [place]) 100 00:00: mouth 3 [place] mg capsule 00 (three) Medica l times Branch daily as needed for Cough. benzonatate 2021-04 Yes [id number] 100mg Take 1 [facility] (TESSALON 1-08 capsule by ity of PER[place]) 100 00:00: mouth 3 [place] mg capsule 00 (three) Medica l times Branch daily as needed for Cough. benzonatate 2021-04 Yes [id number] 100mg Take 1 [facility] (TESSALON 1-08 capsule by ity of [place]) 100 00:00: mouth 3 [place] mg capsule 00 (three) Medica l times Branch daily as needed for Cough. benzonatate 2021-04 Yes [id number] 100mg Take 1 [facility] (TESSALON 1-08 capsule by ity of [place]) 100 00:00: mouth 3 [place] mg capsule 00 (three) Medica l times Branch daily as needed for Cough. benzonatate 2021-04 Yes [id number] 100mg Take 1 [facility] (TESSALON 1-08 capsule by ity of [place]) 100 00:00: mouth 3 [place] mg capsule 00 (three) Medica l times Branch daily as needed for Cough. benzonatate 2021-04 Yes [id number] 100mg Take 1 [facility] (TESSALON 1-08 capsule by ity of [place]) 100 00:00: mouth 3 [place] mg capsule 00 (three) Medica l times Branch daily as needed for Cough. benzonatate 2021-04 Yes [id number] 100mg Take 1 [facility] (TESSALON 1-08 capsule by ity of [place]) 100 00:00: mouth 3 [place] mg capsule 00 (three) Medica l times Branch daily as needed for Cough. benzonatate 2021-04 Yes [id number] 100mg Take 1 [facility] (TESSALON 1-08 capsule by ity of [place]) 100 00:00: mouth 3 [place] mg capsule 00 (three) Medica l times Branch daily as needed for Cough. benzonatate 2021-04 Yes [id number] 100mg Take 1 [facility] (TESSALON 1-08 capsule by ity of [place]) 100 00:00: mouth 3 [place] mg capsule 00 (three) Medica l times Branch daily as needed for Cough. benzonatate 2021-04 Yes [id number] 100mg Take 1 [facility] (TESSALON 1-08 capsule by ity of [place]) 100 00:00: mouth 3 [place] mg capsule 00 (three) Medica l times Branch daily as needed for Cough. benzonatate 2021-04 Yes [id number] 100mg Take 1 [facility] (TESSALON 1-08 capsule by ity of [place]) 100 00:00: mouth 3 [place] mg capsule 00 (three) Medica l times Branch daily as needed for Cough. benzonatate 2021-04 Yes [id number] 100mg Take 1 [facility] (TESSALON 1-08 capsule by ity of [place]) 100 00:00: mouth 3 [place] mg capsule 00 (three) Medica l times Branch daily as needed for Cough. benzonatate 2021-04 Yes [id number] 100mg Take 1 [facility] (TESSALON 1-08 capsule by [facility]y of [place]) 100 00:00: mouth 3 [place] mg capsule 00 (three) Medica l times Branch daily as needed for Cough. benzonatate 2021-04 Yes [id number] 100mg Take 1 [facility] (TESSALON 1-08 capsule by ity of [place]) 100 00:00: mouth 3 [place] mg capsule 00 (three) Medica l times Branch daily as needed for Cough. benzonatate 2021-04 Yes [id number] 100mg Take 1 [facility] (TESSALON 1-08 capsule by ity of [place]) 100 00:00: mouth 3 [place] mg capsule 00 (three) Medica l times Branch daily as needed for Cough. benzonatate 2021-04 Yes [id number] 100mg Take 1 [facility] (TESSALON 1-08 capsule by ity of [place]) 100 00:00: mouth 3 [place] mg capsule 00 (three) Medica l times Branch daily as needed for Cough. benzonatate 2021-04 Yes [id number] 100mg Take 1 [facility] (TESSALON 1-08 capsule by ity of [place]) 100 00:00: mouth 3 [place] mg capsule 00 (three) Medica l times Branch daily as needed for Cough. benzonatate 2021-04 Yes [id number] 100mg Take 1 [facility] (TESSALON 1-08 capsule by [facility]y of [place]) 100 00:00: mouth 3 [place] mg capsule 00 (three) Medica l times Branch daily as needed for Cough. benzonatate 2021-04 Yes [id number] 100mg Take 1 [facility] (TESSALON 1-08 capsule by [facility] of [place]) 100 00:00: mouth 3 [place] mg capsule 00 (three) Medica l times Branch daily as needed for Cough. benzonatate 2021-04 Yes [id number] 100mg Take 1 [facility] (TESSALON 1-08 capsule by [facility] of [place]) 100 00:00: mouth 3 [place] mg capsule 00 (three) Medica l times Branch daily as needed for Cough. benzonatate 2021-04 Yes [id number] 100mg Take 1 [facility] (TESSALON 1-08 capsule by [facility]) 100 00:00: mouth 3 [place] mg capsule 00 (three) Medica l times Branch daily as needed for Cough. benzonatate 2021-04- No [id number] 100mg Take 1 [facility] (TESSALON 1-08 04-10 capsule by [facility]) 100 00:00: 00:00 mouth 3 [place] mg capsule 00 :00 (three) Medica l times Branch daily as needed for Cough. benzonatate 2021-04- No [id number] 100mg Take 1 [facility] (TESSALON 1-08 04-10 capsule by [employer] [place]) 100 00:00: 00:00 mouth 3 [place] mg capsule 00 :00 (three) Medica l times Branch daily as needed for Cough. albuterol 2021-04- No [id number] 2{puff} Inhale 2 [facility] (VENTOLIN 1-08 12-09 Puffs ity of HFA) 90 00:00: 05:59 every 6 [place] mcg/actuati 00 :00 (six) Medical on inhaler hours as Branc h needed for Shortness of Breath or Chest tightness for up to 30 days. albuterol 2021-04- No [id number] 2{puff} Inhale 2 [facility] (VENTOLIN 1-08 12-09 Puffs ity of HFA) 90 00:00: 05:59 every 6 [place] mcg/actuati 00 :00 (six) Medical on inhaler hours as Branc h needed for Shortness of Breath or Chest tightness for up to 30 days. albuterol 2021-04- No [id number] 2{puff} Inhale 2 [facility] (VENTOLIN 1-08 12-09 Puffs ity of HFA) 90 00:00: 05:59 every 6 [place] mcg/actuati 00 :00 (six) Medical on inhaler hours as Branc h needed for Shortness of Breath or Chest tightness for up to 30 days. albuterol 2021-04- No [id number] 2{puff} Inhale 2 [facility] (VENTOLIN 1-08 12-09 Puffs ity of HFA) 90 00:00: 05:59 every 6 [place] mcg/actuati 00 :00 (six) Medical on inhaler hours as Branc h needed for Shortness of Breath or Chest tightness for up to 30 days. albuterol 2021-04- No [id number] 2{puff} Inhale 2 [facility] (VENTOLIN 1-08 12-09 Puffs ity of HFA) 90 00:00: 05:59 every 6 [place] mcg/actuati 00 :00 (six) Medical on inhaler hours as Branc h needed for Shortness of Breath or Chest tightness for up to 30 days. albuterol 2021-04- No [id number] 2{puff} Inhale 2 [facility] (VENTOLIN 1-08 12-09 Puffs ity of HFA) 90 00:00: 05:59 every 6 [place] mcg/actuati 00 :00 (six) Medical on inhaler hours as Branc h needed for Shortness of Breath or Chest tightness for up to 30 days. FOLIC ACID 2021-04 Yes [id number] TAKE 1 U nivers 1 mg tablet 0-14 TABLET BY ity of 00:00: MOUTH [place] 00 EVERY DAY Medical IN THE [place] MORNING FOLIC ACID 2021-04 Yes [id number] TAKE 1 U nivers 1 mg tablet 0-14 TABLET BY ity of 00:00: MOUTH [place] 00 EVERY DAY Medical IN THE [place] MORNING FOLIC ACID 2021-04 Yes [id number] TAKE 1 U nivers 1 mg tablet 0-14 TABLET BY ity of 00:00: MOUTH [place] 00 EVERY DAY Medical IN THE [place] MORNING FOLIC ACID 2021-04 Yes [id number] TAKE 1 U nivers 1 mg tablet 0-14 TABLET BY ity of 00:00: MOUTH [place] 00 EVERY DAY Medical IN THE [place] MORNING FOLIC ACID 2021-04 Yes [id number] TAKE 1 U nivers 1 mg tablet 0-14 TABLET BY ity of 00:00: MOUTH [place] 00 EVERY DAY Medical IN THE [facility] FOLIC ACID 2021-04 Yes [id number] TAKE 1 U nivers 1 mg tablet 0-14 TABLET BY ity of 00:00: MOUTH [place] 00 EVERY DAY Medical IN THE [facility] FOLIC ACID 2021-04 Yes [id number] TAKE 1 U nivers 1 mg tablet 0-14 TABLET BY ity of 00:00: MOUTH [place] 00 EVERY DAY Medical IN THE [facility] FOLIC ACID 2021-04 Yes [id number] TAKE 1 U nivers 1 mg tablet 0-14 TABLET BY ity of 00:00: MOUTH [place] 00 EVERY DAY Medical IN THE [facility] FOLIC ACID 2021-04 Yes [id number] TAKE 1 U nivers 1 mg tablet 0-14 TABLET BY ity of 00:00: MOUTH [place] 00 EVERY DAY Medical IN THE [facility] FOLIC ACID 2021-04 Yes [id number] TAKE 1 U nivers 1 mg tablet 0-14 TABLET BY ity of 00:00: MOUTH [place] 00 EVERY DAY Medical IN THE [facility] FOLIC ACID 2021-04 Yes [id number] TAKE 1 U nivers 1 mg tablet 0-14 TABLET BY ity of 00:00: MOUTH [place] 00 EVERY DAY Medical IN THE [facility] FOLIC ACID 2021-04 Yes [id number] TAKE 1 U nivers 1 mg tablet 0-14 TABLET BY ity of 00:00: MOUTH [place] 00 EVERY DAY Medical IN THE [facility] FOLIC ACID 2021-04 Yes [id number] TAKE 1 U nivers 1 mg tablet 0-14 TABLET BY ity of 00:00: MOUTH [place] 00 EVERY DAY Medical IN THE [facility] FOLIC ACID 2021-04 Yes [id number] TAKE 1 U nivers 1 mg tablet 0-14 TABLET BY ity of 00:00: MOUTH [place] 00 EVERY DAY Medical IN THE [facility] FOLIC ACID 2021-04 Yes [id number] TAKE 1 U nivers 1 mg tablet 0-14 TABLET BY ity of 00:00: MOUTH [place] 00 EVERY DAY Medical IN THE [facility] FOLIC ACID 2021-04 Yes [id number] TAKE 1 U nivers 1 mg tablet 0-14 TABLET BY ity of 00:00: MOUTH [place] 00 EVERY DAY Medical IN THE [facility] FOLIC ACID 2021-04 Yes [id number] TAKE 1 U nivers 1 mg tablet 0-14 TABLET BY ity of 00:00: MOUTH [place] 00 EVERY DAY Medical IN THE [facility] FOLIC ACID 2021-04 Yes [id number] TAKE 1 U nivers 1 mg tablet 0-14 TABLET BY ity of 00:00: MOUTH [place] 00 EVERY DAY Medical IN THE [facility] FOLIC ACID 2021-04 Yes [id number] TAKE 1 U nivers 1 mg tablet 0-14 TABLET BY ity of 00:00: MOUTH [place] 00 EVERY DAY Medical IN THE [facility] FOLIC ACID 2021-04 Yes [id number] TAKE 1 U nivers 1 mg tablet 0-14 TABLET BY ity of 00:00: MOUTH [place] 00 EVERY DAY Medical IN THE [facility] FOLIC ACID 2021-04 Yes [id number] TAKE 1 U nivers 1 mg tablet 0-14 TABLET BY ity of 00:00: MOUTH [place] 00 EVERY DAY Medical IN THE [facility] FOLIC ACID 2021-04 Yes [id number] TAKE 1 U nivers 1 mg tablet 0-14 TABLET BY ity of 00:00: MOUTH [place] 00 EVERY DAY Medical IN THE [facility] FOLIC ACID 2021-04 Yes [id number] TAKE 1 U nivers 1 mg tablet 0-14 TABLET BY ity of 00:00: MOUTH [place] 00 EVERY DAY Medical IN THE [facility] FOLIC ACID 2021-04 Yes [id number] TAKE 1 U nivers 1 mg tablet 0-14 TABLET BY ity of 00:00: MOUTH [place] 00 EVERY DAY Medical IN THE [facility] FOLIC ACID 2021-04 Yes [id number] TAKE 1 U nivers 1 mg tablet 0-14 TABLET BY ity of 00:00: MOUTH [place] 00 EVERY DAY Medical IN THE [facility] FOLIC ACID 2021-04 Yes [id number] TAKE 1 U nivers 1 mg tablet 0-14 TABLET BY ity of 00:00: MOUTH [place] 00 EVERY DAY Medical IN THE [facility] FOLIC ACID 2021-04 Yes [id number] TAKE 1 U nivers 1 mg tablet 0-14 TABLET BY ity of 00:00: MOUTH [place] 00 EVERY DAY Medical IN THE [facility] FOLIC ACID 2021-04 Yes [id number] TAKE 1 U nivers 1 mg tablet 0-14 TABLET BY ity of 00:00: MOUTH [place] 00 EVERY DAY Medical IN THE [facility] FOLIC ACID 2021-04 Yes [id number] TAKE 1 U nivers 1 mg tablet 0-14 TABLET BY ity of 00:00: MOUTH [place] 00 EVERY DAY Medical IN THE [facility] FOLIC ACID 2021-04 Yes [id number] TAKE 1 U nivers 1 mg tablet 0-14 TABLET BY ity of 00:00: MOUTH [place] 00 EVERY DAY Medical IN THE [facility] FOLIC ACID 2021-04 Yes [id number] TAKE 1 U nivers 1 mg tablet 0-14 TABLET BY ity of 00:00: MOUTH [place] 00 EVERY DAY Medical IN THE [facility] FOLIC ACID 2021-04 Yes [id number] TAKE 1 U nivers 1 mg tablet 0-14 TABLET BY ity of 00:00: MOUTH [place] 00 EVERY DAY Medical IN THE [facility] FOLIC ACID 2021-04 Yes [id number] TAKE 1 U nivers 1 mg tablet 0-14 TABLET BY ity of 00:00: MOUTH [place] 00 EVERY DAY Medical IN THE [facility] FOLIC ACID 2021-04- No [id number] TAKE 1 [facility] 1 mg tablet 0-14 04-13 TABLET BY it y of 00:00: 00:00 MOUTH [place] 00 :00 EVERY DAY Medical IN THE [facility] FOLIC ACID 2021-04- No [id number] TAKE 1 [facility] 1 mg tablet 0-14 04-13 TABLET BY it y of 00:00: 00:00 MOUTH [place] 00 :00 EVERY DAY Medical IN THE [facility] budesonide- Yes 1{puff} Inhale 1 [facility] formoteroL 9-13 Puff as ity of (SYMBICORT) 00:00: needed. [place] 160-4.5 00 Medical mcg/actuati Branch on inhaler budesonide- Yes 1{puff} Inhale 1 [facility] formoteroL 9-13 Puff as ity of (SYMBICORT) 00:00: needed. [place] 160-4.5 00 Medical mcg/actuati Branch on inhaler budesonide- 0 Yes 1{puff} Inhale 1 [facility] formoteroL 9-13 Puff as ity of (SYMBICORT) 00:00: needed. [place] 160-4.5 00 Medical mcg/actuati Branch on inhaler budesonide- 0 Yes 1{puff} Inhale 1 [facility] formoteroL 9-13 Puff as ity of (SYMBICORT) 00:00: needed. [place] 160-4.5 00 Medical mcg/actuati Branch on inhaler budesonide- 0 Yes 1{puff} Inhale 1 [facility] formoteroL 9-13 Puff as ity of (SYMBICORT) 00:00: needed. [place] 160-4.5 00 Medical mcg/actuati Branch on inhaler budesonide- 0 Yes 1{puff} Inhale 1 [facility] formoteroL 9-13 Puff as ity of (SYMBICORT) 00:00: needed. [place] 160-4.5 00 Medical mcg/actuati Branch on inhaler budesonide- 0 Yes 1{puff} Inhale 1 [facility] formoteroL 9-13 Puff as ity of 160-4.5 00:00: needed. [place] mcg/actuati 00 Medical on inhaler Branch budesonide- 0 Yes 1{puff} Inhale 1 [facility] formoteroL 9-13 Puff as ity of 160-4.5 00:00: needed. [place] mcg/actuati 00 Medical on inhaler Branch budesonide- 0 Yes 1{puff} Inhale 1 [facility] formoteroL 9-13 Puff as ity of 160-4.5 00:00: needed. [place] mcg/actuati 00 Medical on inhaler Branch budesonide- 0 Yes 1{puff} Inhale 1 [facility] formoteroL 9-13 Puff as ity of 160-4.5 00:00: needed. [place] mcg/actuati 00 Medical on inhaler Branch budesonide- 0 Yes 1{puff} Inhale 1 [facility] formoteroL 9-13 Puff as ity of 160-4.5 00:00: needed. [place] mcg/actuati 00 Medical on inhaler Branch budesonide- 0 Yes 1{puff} Inhale 1 [facility] formoteroL 9-13 Puff as ity of 160-4.5 00:00: needed. [place] mcg/actuati 00 Medical on inhaler Branch budesonide- 0 Yes 1{puff} Inhale 1 [facility] formoteroL 9-13 Puff as ity of 160-4.5 00:00: needed. [place] mcg/actuati 00 Medical on inhaler Branch budesonide- 0 Yes 1{puff} Inhale 1 [facility] formoteroL 9-13 Puff as ity of 160-4.5 00:00: needed. [place] mcg/actuati 00 Medical on inhaler Branch budesonide- 0 Yes 1{puff} Inhale 1 [facility] formoteroL 9-13 Puff as ity of 160-4.5 00:00: needed. [place] mcg/actuati 00 Medical on inhaler Branch budesonide- Yes 1{puff} Inhale 1 [facility] formoteroL 9-13 Puff as ity of 160-4.5 00:00: needed. [place] mcg/actuati Medical on inhaler Branch budesonide- Yes 1{puff} Inhale 1 [facility] formoteroL 9-13 Puff as ity of 160-4.5 00:00: needed. [place] mcg/actuati 00 Medical on inhaler Branch budesonide- Yes 1{puff} Inhale 1 [facility] formoteroL 9-13 Puff as ity of 160-4.5 00:00: needed. [place] mcg/actuati 00 Medical on inhaler Branch Nitrofurant 2021- No [id number] 100mg Take 1 [facility] oin&Nit. 01-06 capsule by ity of Macrocryst 00:00: 04:59 mouth in [place] 100 mg 00 :00 the Medical capsule morning Branch and 1 capsule in the evening. Do all this for 5 days. Nitrofurant 2021- No [id number] 100mg Take 1 [facility] oin&Nit. 01-06 capsule by ity of Macrocryst 00:00: 04:59 mouth in [place] 100 mg 00 :00 the Medical capsule morning Branch and 1 capsule in the evening. Do all this for 5 days. phenazopyri 2021- No [id number] 200mg Take 2 [facility] dine 100 mg 01-06 tablets by i ty of tablet 00:00: 04:59 mouth in [place] 00 :00 the Medical morning Branch and 2 tablets at noon and 2 tablets in the evening. Do all this for 2 days. rosuvastati Yes [id number] 5mg Take 1 [facility] n 5 mg 8-31 tablet by ity of tablet 00:00: mouth in [place] 00 the Medical morning. Branch rosuvastati Yes [id number] 5mg Take 1 [facility] n 5 mg 8-31 tablet by ity of tablet 00:00: mouth in [place] 00 the Medical morning. Branch rosuvastati 2021-0 Yes [id number] 5mg Take 1 [facility] n 5 mg 8-31 tablet by ity of tablet 00:00: mouth in [place] 00 the Medical morning. Branch rosuvastati 2021-0 Yes [id number] 5mg Take 1 [facility] n 5 mg 8-31 tablet by ity of tablet 00:00: mouth in [place] 00 the Medical morning. Branch rosuvastati 2021-0 Yes [id number] 5mg Take 1 [facility] n 5 mg 8-31 tablet by ity of tablet 00:00: mouth in [place] 00 the Medical morning. Branch rosuvastati 2021-0 Yes [id number] 5mg Take 1 [facility] n 5 mg 8-31 tablet by ity of tablet 00:00: mouth in [place] 00 the Medical morning. Branch rosuvastati 2021-0 Yes [id number] 5mg Take 1 [facility] n 5 mg 8-31 tablet by ity of tablet 00:00: mouth in [place] 00 the Medical morning. Branch rosuvastati 2021-0 Yes [id number] 5mg Take 1 [facility] n 5 mg 8-31 tablet by ity of tablet 00:00: mouth in [place] 00 the Medical morning. Branch rosuvastati 2021-0 Yes [id number] 5mg Take 1 [facility] n 5 mg 8-31 tablet by ity of tablet 00:00: mouth in [place] 00 the Medical morning. Branch rosuvastati 2021-0 Yes [id number] 5mg Take 1 [facility] n 5 mg 8-31 tablet by ity of tablet 00:00: mouth in [place] 00 the Medical morning. Branch rosuvastati 2021-0 Yes [id number] 5mg Take 1 [facility] n 5 mg 8-31 tablet by ity of tablet 00:00: mouth in [place] 00 the Medical morning. Branch rosuvastati 2-0 3- No [id number] 5mg Take 1 [facility] n 5 mg 8-31 - tablet by ity of tablet 00:00: 00:00 mouth in [place] 00 :00 the Medical morning. Branch rosuvastati 2022-0 3- No [id number] 5mg Take 1 [facility] n 5 mg 8-31 - tablet by ity of tablet 00:00: 00:00 mouth in [place] 00 :00 the Medical morning. Branch rosuvastati 2022-0 3- No [id number] 5mg Take 1 [facility] n 5 mg 8-31 05-19 tablet by ity of tablet 00:00: 00:00 mouth in [place] 00 :00 the Medical morning. Branch ROPINIROLE 2021-0 Yes [id number] TAKE 1 [facility] 5 mg tablet 8-30 TABLET BY ity of 00:00: MOUTH [place] 00 EVERYDAY Medical AT BEDTIME Branch ATENOLOL 50 2021-0 Yes [id number] TAKE 1 U nivers mg tablet 8-30 TABLET BY ity o f 00:00: MOUTH [place] 00 EVERY DAY Medical Branch ROPINIROLE 2021-0 Yes [id number] TAKE 1 [facility] 5 mg tablet 8-30 TABLET BY ity of 00:00: MOUTH [place] 00 EVERYDAY Medical AT BEDTIME Branch ATENOLOL 50 2021-0 Yes [id number] TAKE 1 U nivers mg tablet 8-30 TABLET BY ity o f 00:00: MOUTH EVERY DAY Medical Branch ROPINIROLE 2021-0 Yes [id number] TAKE 1 [facility] 5 mg tablet 8-30 TABLET BY ity of 00:00: MOUTH 00 EVERYDAY Medical AT BEDTIME Branch ATENOLOL 50 2021-0 Yes [id number] TAKE 1 U nivers mg tablet 8-30 TABLET BY ity o f 00:00: MOUTH [place] EVERY DAY Medical Branch ROPINIROLE 2021-0 Yes [id number] TAKE 1 [facility] 5 mg tablet 8-30 TABLET BY ity of 00:00: MOUTH 00 EVERYDAY Medical AT BEDTIME Branch ATENOLOL 50 2021-0 Yes [id number] TAKE 1 U nivers mg tablet 8-30 TABLET BY ity o f 00:00: MOUTH [place] 00 EVERY DAY Medical Branch ROPINIROLE 2021-0 Yes [id number] TAKE 1 [facility] 5 mg tablet 8-30 TABLET BY ity of 00:00: MOUTH 00 EVERYDAY Medical AT BEDTIME Branch ATENOLOL 50 2021-0 Yes [id number] TAKE 1 U nivers mg tablet 8-30 TABLET BY ity o f 00:00: MOUTH [place] 00 EVERY DAY Medical Branch ROPINIROLE 2021-0 Yes [id number] TAKE 1 [facility] 5 mg tablet 8-30 TABLET BY ity of 00:00: MOUTH 00 EVERYDAY Medical AT BEDTIME Branch ATENOLOL 50 2021-0 Yes [id number] TAKE 1 U nivers mg tablet 8-30 TABLET BY ity o f 00:00: MOUTH [place] EVERY DAY Medical Branch ROPINIROLE 0 Yes [id number] TAKE 1 [facility] 5 mg tablet 8-30 TABLET BY ity of 00:00: MOUTH 00 EVERYDAY Medical AT BEDTIME Branch ATENOLOL 50 2021-0 Yes [id number] TAKE 1 U nivers mg tablet 8-30 TABLET BY ity o f 00:00: MOUTH [place] EVERY DAY Medical Branch ROPINIROLE 2021-0 2021- No [id number] TAKE 1 [facility] 5 mg tablet 8-30 11-15 TABLET BY it y of 00:00: 00:00 MOUTH [place] 00 :00 EVERYDAY Medical AT BEDTIME Branch ATENOLOL 50 0 2021- No [id number] TAKE 1 [facility] mg tablet 8-30 11-15 TABLET BY ity of 00:00: 00:00 MOUTH [place] 00 :00 EVERY DAY Medical Branch ROPINIROLE 2021-0 2021- No [id number] TAKE 1 [facility] 5 mg tablet 8-30 11-15 TABLET BY it y of 00:00: 00:00 MOUTH [place] 00 :00 EVERYDAY Medical AT BEDTIME Branch ATENOLOL 50 0 2022- No [id number] TAKE 1 [facility] mg tablet 8-30 11-15 TABLET BY ity of 00:00: 00:00 MOUTH [place] 00 :00 EVERY DAY Medical Branch triamcinolo 2021- No [id number] 40mg [facility] ne 12-18 ity of acetonide 16:00: 14:59 [place] (KENALOG) 00 :00 Medical injection Branch 40 mg methylPREDN 2021- No [id number] 80mg Univers ISolone 12-18 ity of acetate 16:00: 14:59 [place] (DEPO-MEDRO 00 :00 Medical L) Branch injection 80 mg methylPREDN 2021- No [id number] 80mg 80 mg, Univers ISolone 12-18 Intramuscu ity o f acetate 16:00: 14:59 [place], ONCE, [place] (DEPO-MEDRO 00 :00 1 dose, On Me dical L) Wed Branch injection 12/18/21 at 80 mg 1100, Routine triamcinolo 2021- No [id number] 40mg 40 mg, Univers ne 12-18 Intramuscu ity of acetonide 16:00: 14:59 [place], ONCE, [place] (KENALOG) 00 :00 1 dose, On Medi tamra injection Wed Branch 40 mg 12/18/21 at 1100, Routine triamcinolo 2021- No [id number] 40mg [facility] ne 12-18 ity of acetonide 16:00: 14:59 [place] (KENALOG) 00 :00 Medical injection Branch 40 mg methylPREDN 2021- No [id number] 80mg [facility] ISolone 12-18 ity of acetate 16:00: 14:59 [place] (DEPO-MEDRO 00 :00 Medical L) Branch injection 80 mg methylPREDN 2021- No [id number] 80mg 80 mg, [facility] ISolone 12-18 Intramuscu ity o f acetate 16:00: 14:59 [place], ONCE, [place] (DEPO-MEDRO 00 :00 1 dose, On Me dical L) Wed Branch injection 12/18/21 at 80 mg 1100, Routine triamcinolo 2021- No [id number] 40mg 40 mg, [facility] ne 12-18 Intramuscu ity of acetonide 16:00: 14:59 [place], ONCE, [place] (KENALOG) 00 :00 1 dose, On Medi tamra injection Wed Branch 40 mg 12/18/21 at 1100, Routine budesonide- 2021- No 2{puff} Inhale 2 [facility] formoteroL 12-18-24 Puffs 2 ity o f (SYMBICORT) 09:46: 00:00 (two) [place] 80-4.5 56 :00 times Medical mcg/actuati daily. Branch on inhaler budesonide- 2021- No 2{puff} Inhale 2 [facility] formoteroL 12-18 08-24 Puffs 2 ity o f (SYMBICORT) 09:46: 00:00 (two) [place] 80-4.5 56 :00 times Medical mcg/actuati daily. Branch on inhaler atogepant Yes 1{tbl} Take 1 Univ ers 60 mg Tab 7-23 tablet by ity o f 13:19: mouth [place] 34 [facility]. [facility] Yes 1{tbl} Take 1 [facility] ers 60 mg Tab 7-23 tablet by ity o f 13:19: mouth [place] 34 daily. [facility] Yes 1{tbl} Take 1 [facility] ers 60 mg Tab 7-23 tablet by ity o f 13:19: mouth [place] 34 daily. [facility] Yes 1{tbl} Take 1 [facility] ers 60 mg Tab 7-23 tablet by ity o f 13:19: mouth [place] 34 daily. [facility] Yes 1{tbl} Take 1 Univ ers 60 mg Tab 7-23 tablet by ity o f 13:19: mouth [place] 34 daily. [facility] Yes 1{tbl} Take 1 Univ ers 60 mg Tab 7-23 tablet by ity o f 13:19: mouth [place] 34 daily. [facility] Yes 1{tbl} Take 1 [facility] ers 60 mg Tab 7-23 tablet by ity o f 13:19: mouth [place] 34 daily. [facility] Yes 1{tbl} Take 1 Univ ers 60 mg Tab 7-23 tablet by ity o f 13:19: mouth [place] 34 daily. [facility] Yes 1{tbl} Take 1 [facility] ers 60 mg Tab 7-23 tablet by ity o f 13:19: mouth [place] 34 daily. [facility] Yes 1{tbl} Take 1 [facility] ers 60 mg Tab 7-23 tablet by ity o f 13:19: mouth [place] 34 daily. [facility] Yes 1{tbl} Take 1 [facility] ers 60 mg Tab 7-23 tablet by ity o f 13:19: mouth [place] 34 daily. [facility] Yes 1{tbl} Take 1 Univ ers 60 mg Tab 7-23 tablet by ity o f 13:19: mouth [place] 34 daily. [facility] Yes 1{tbl} Take 1 [facility] ers 60 mg Tab 7-23 tablet by ity o f 13:19: mouth [place] 34 daily. [facility] Yes 1{tbl} Take 1 [facility] ers 60 mg Tab 7-23 tablet by ity o f 13:19: mouth [place] 34 daily. [facility] Yes 1{tbl} Take 1 [facility] ers 60 mg Tab 7-23 tablet by ity o f 13:19: mouth [place] 34 daily. [facility] Yes 1{tbl} Take 1 Univ ers 60 mg Tab 7-23 tablet by ity o f 13:19: mouth [place] 34 daily. [facility] Yes 1{tbl} Take 1 Univ ers 60 mg Tab 7-23 tablet by ity o f 13:19: mouth [place] 34 daily. [facility] Yes 1{tbl} Take 1 [facility] ers 60 mg Tab 7-23 tablet by ity o f 13:19: mouth [place] 34 daily. [facility] Yes 1{tbl} Take 1 [facility] ers 60 mg Tab 7-23 tablet by ity o f 13:19: mouth [place] 34 daily. [facility] Yes 1{tbl} Take 1 [facility] ers 60 mg Tab 7-23 tablet by ity o f 13:19: mouth [place] 34 daily. [facility] Yes 1{tbl} Take 1 [facility] ers 60 mg Tab 7-23 tablet by ity o f 13:19: mouth [place] 34 daily. [facility] Yes 1{tbl} Take 1 [facility] ers 60 mg Tab 7-23 tablet by ity o f 13:19: mouth [place] 34 daily. [facility] Yes 1{tbl} Take 1 [facility] ers 60 mg Tab 7-23 tablet by ity o f 13:19: mouth [place] 34 daily. [facility] Yes 1{tbl} Take 1 Univ ers 60 mg Tab 7-23 tablet by ity o f 13:19: mouth [place] 34 daily. [facility] Yes 1{tbl} Take 1 Univ ers 60 mg Tab 7-23 tablet by ity o f 13:19: mouth [place] 34 daily. Medical Branch proMETHazin 2-0 Yes [id number] 25mg Take 1 [facility] e 25 mg 7-23 tablet by ity of tablet 00:00: mouth [place] 00 every 8 Medical (eight) Branch hours as needed for Nausea and Vomiting (N/V). proMETHazin 2021-0 Yes [id number] 25mg Take 1 [facility] e 25 mg 7-23 tablet by ity of tablet 00:00: mouth [place] 00 every 8 Medical (eight) Branch hours as needed for Nausea and Vomiting (N/V). proMETHazin 2021-0 Yes [id number] 25mg Take 1 [facility] e 25 mg 7-23 tablet by ity of tablet 00:00: mouth [place] 00 every 8 Medical (eight) Branch hours as needed for Nausea and Vomiting (N/V). proMETHazin 2021-0 Yes [id number] 25mg Take 1 [facility] e 25 mg 7-23 tablet by ity of tablet 00:00: mouth [place] 00 every 8 Medical (eight) Branch hours as needed for Nausea and Vomiting (N/V). proMETHazin 2021-0 Yes [id number] 25mg Take 1 [facility] e 25 mg 7-23 tablet by ity of tablet 00:00: mouth [place] 00 every 8 Medical (eight) Branch hours as needed for Nausea and Vomiting (N/V). proMETHazin 2021-0 Yes [id number] 25mg Take 1 [facility] e 25 mg 7-23 tablet by ity of tablet 00:00: mouth [place] 00 every 8 Medical (eight) Branch hours as needed for Nausea and Vomiting (N/V). proMETHazin 2021-0 Yes [id number] 25mg Take 1 [facility] e 25 mg 7-23 tablet by ity of tablet 00:00: mouth [place] 00 every 8 Medical (eight) Branch hours as needed for Nausea and Vomiting (N/V). proMETHazin 2-0 Yes [id number] 25mg Take 1 [facility] e 25 mg 7-23 tablet by ity of tablet 00:00: mouth [place] 00 every 8 Medical (eight) Branch hours as needed for Nausea and Vomiting (N/V). proMETHazin 2021-0 Yes [id number] 25mg Take 1 [facility] e 25 mg 7-23 tablet by ity of tablet 00:00: mouth [place] 00 every 8 Medical (eight) Branch hours as needed for Nausea and Vomiting (N/V). proMETHazin 2022-0 Yes [id number] 25mg Take 1 [facility] e 25 mg 7-23 tablet by ity of tablet 00:00: mouth [place] 00 every 8 Medical (eight) Branch hours as needed for Nausea and Vomiting (N/V). proMETHazin 2022-0 Yes [id number] 25mg Take 1 [facility] e 25 mg 7-23 tablet by ity of tablet 00:00: mouth [place] 00 every 8 Medical (eight) Branch hours as needed for Nausea and Vomiting (N/V). proMETHazin 2022-0 Yes [id number] 25mg Take 1 [facility] e 25 mg 7-23 tablet by ity of tablet 00:00: mouth [place] 00 every 8 Medical (eight) Branch hours as needed for Nausea and Vomiting (N/V). proMETHazin 2022-0 Yes [id number] 25mg Take 1 [facility] e 25 mg 7-23 tablet by ity of tablet 00:00: mouth [place] 00 every 8 Medical (eight) Branch hours as needed for Nausea and Vomiting (N/V). proMETHazin 2-0 2021- No [id number] 25mg Take 1 Univers e 25 mg 7-23 12-30 tablet by ity of tablet 00:00: 00:00 mouth [place] 00 :00 every 8 Medical (eight) Branch hours as needed for Nausea and Vomiting (N/V). Cholecalcif 2022-0 Yes Take by Uni vers jenny, 6-30 mouth. ity of Vitamin D3, 09:08: [place] (VITAMIN 29 Medical D3) 50 mcg Branch (2,000 unit) tablet Cholecalcif 2022-0 Yes Take by Uni vers jenny, 6-30 mouth. ity of Vitamin D3, 09:08: [place] (VITAMIN 29 Medical D3) 50 mcg Branch (2,000 unit) tablet Cholecalcif 2022-0 Yes Take by Uni vers jenny, 6-30 mouth. ity of Vitamin D3, 09:08: [place] (VITAMIN 29 Medical D3) 50 mcg Branch (2,000 unit) tablet Cholecalcif 2022-0 Yes Take by Uni vers jenny, 6-30 mouth. ity of Vitamin D3, 09:08: [place] (VITAMIN 29 Medical D3) 50 mcg Branch (2,000 unit) tablet Cholecalcif 2022-0 Yes Take by Uni vers jenny, 6-30 mouth. ity of Vitamin D3, 09:08: [place] (VITAMIN 29 Medical D3) 50 mcg Branch (2,000 unit) tablet Cholecalcif 2022-0 Yes Take by Uni vers jenny, 6-30 mouth. ity of Vitamin D3, 09:08: [place] (VITAMIN 29 Medical D3) 50 mcg Branch (2,000 unit) tablet Cholecalcif 2022-0 Yes Take by Uni vers jenny, 6-30 mouth. ity of Vitamin D3, 09:08: [place] (VITAMIN 29 Medical D3) 50 mcg Branch (2,000 unit) tablet Cholecalcif 2022-0 Yes Take by Uni vers jenny, 6-30 mouth. ity of Vitamin D3, 09:08: [place] (VITAMIN 29 Medical D3) 50 mcg Branch (2,000 unit) tablet Cholecalcif 2022-0 Yes Take by Uni vers jenny, 6-30 mouth. ity of Vitamin D3, 09:08: [place] (VITAMIN 29 Medical D3) 50 mcg Branch (2,000 unit) tablet Cholecalcif 2022-0 Yes Take by Uni vers jenny, 6-30 mouth. ity of Vitamin D3, 09:08: [place] (VITAMIN 29 Medical D3) 50 mcg Branch (2,000 unit) tablet Cholecalcif 2022-0 Yes Take by Uni vers jenny, 6-30 mouth. ity of Vitamin D3, 09:08: [place] (VITAMIN 29 Medical D3) 50 mcg Branch (2,000 unit) tablet Cholecalcif 2022-0 Yes Take by Uni vers jenny, 6-30 mouth. ity of Vitamin D3, 09:08: [place] (VITAMIN 29 Medical D3) 50 mcg Branch (2,000 unit) tablet Cholecalcif 2022-0 Yes Take by Uni vers jenny, 6-30 mouth. ity of Vitamin D3, 09:08: [place] (VITAMIN 29 Medical D3) 50 mcg Branch (2,000 unit) tablet Cholecalcif 2022-0 Yes Take by Uni vers jenny, 6-30 mouth. ity of Vitamin D3, 09:08: [place] (VITAMIN 29 Medical D3) 50 mcg Branch (2,000 unit) tablet Cholecalcif 2022-0 Yes Take by [facility] vers jenny, 6-30 mouth. ity of Vitamin D3, 09:08: [place] (VITAMIN 29 Medical D3) 50 mcg Branch (2,000 unit) tablet Cholecalcif 2022-0 Yes Take by [facility] vers jenny, 6-30 mouth. ity of Vitamin D3, 09:08: [place] (VITAMIN 29 Medical D3) 50 mcg Branch (2,000 unit) tablet Cholecalcif Yes Take by [facility] vers jenny, 6-30 mouth. ity of Vitamin D3, 09:08: [place] (VITAMIN 29 Medical D3) 50 mcg Branch (2,000 unit) tablet rOPINIRole 0 Yes [id number] 5mg Take 1 [facility] 5 mg tablet 5-11 tablet by ity of 00:00: mouth at [place] 00 bedtime. Medical Branch foLIC acid Yes [id number] 1mg Take 1 U nivers 1 mg tablet 5-11 tablet by ity of 00:00: mouth [place] 00 every Medical morning. Branch atenoloL 50 0 Yes [id number] 50mg Take 1 U nivers mg tablet 5-11 tablet by ity o f 00:00: mouth [place] 00 daily. Medical Branch ALPRAZolam Yes [id number] .25mg Take 1 [facility] (XANAX) 5-11 tablet by ity of 0.25 mg 00:00: mouth 3 [place] tablet 00 (three) Medical times Branch daily as needed for Other (anxiety). rOPINIRole Yes [id number] 5mg Take 1 [facility] 5 mg tablet 5-11 tablet by ity of 00:00: mouth at [place] 00 bedtime. Medical Branch foLIC acid Yes [id number] 1mg Take 1 U nivers 1 mg tablet 5-11 tablet by ity of 00:00: mouth [place] 00 every Medical morning. Branch atenoloL 50 Yes [id number] 50mg Take 1 U nivers mg tablet 5-11 tablet by ity o f 00:00: mouth [place] 00 daily. Medical Branch ALPRAZolam Yes [id number] .25mg Take 1 [facility] (XANAX) 5-11 tablet by ity of 0.25 mg 00:00: mouth 3 [place] tablet 00 (three) Medical times Branch daily as needed for Other (anxiety). foLIC acid 0 Yes [id number] 1mg Take 1 U nivers 1 mg tablet 5-11 tablet by ity of 00:00: mouth [place] 00 every Medical morning. Branch ALPRAZolam Yes [id number] .25mg Take 1 [facility] (XANAX) 5-11 tablet by ity of 0.25 mg 00:00: mouth 3 [place] tablet 00 (three) Medical times Branch daily as needed for Other (anxiety). foLIC acid Yes [id number] 1mg Take 1 U nivers 1 mg tablet 5-11 tablet by ity of 00:00: mouth [place] 00 every Medical morning. Branch ALPRAZolam Yes [id number] .25mg Take 1 [facility] (XANAX) 5-11 tablet by ity of 0.25 mg 00:00: mouth 3 [place] tablet 00 (three) Medical times Branch daily as needed for Other (anxiety). foLIC acid Yes [id number] 1mg Take 1 U nivers 1 mg tablet 5-11 tablet by ity of 00:00: mouth [place] 00 every Medical morning. Branch ALPRAZolam Yes [id number] .25mg Take 1 [facility] (XANAX) 5-11 tablet by ity of 0.25 mg 00:00: mouth 3 [place] tablet 00 (three) Medical times Branch daily as needed for Other (anxiety). foLIC acid Yes [id number] 1mg Take 1 U nivers 1 mg tablet 5-11 tablet by ity of 00:00: mouth [place] 00 every Medical morning. Branch ALPRAZolam Yes [id number] .25mg Take 1 [facility] (XANAX) 5-11 tablet by ity of 0.25 mg 00:00: mouth 3 [place] tablet 00 (three) Medical times Branch daily as needed for Other (anxiety). ALPRAZolam Yes [id number] .25mg Take 1 [facility] (XANAX) 5-11 tablet by ity of 0.25 mg 00:00: mouth 3 [place] tablet 00 (three) Medical times Branch daily as needed for Other (anxiety). ALPRAZolam 0 Yes [id number] .25mg Take 1 [facility] (XANAX) 5-11 tablet by ity of 0.25 mg 00:00: mouth 3 [place] tablet 00 (three) Medical times Branch daily as needed for Other (anxiety). ALPRAZolam Yes [id number] .25mg Take 1 [facility] (XANAX) 5-11 tablet by ity of 0.25 mg 00:00: mouth 3 [place] tablet 00 (three) Medical times Branch daily as needed for Other (anxiety). ALPRAZolam Yes [id number] .25mg Take 1 [facility] (XANAX) 5-11 tablet by ity of 0.25 mg 00:00: mouth 3 [place] tablet 00 (three) Medical times Branch daily as needed for Other (anxiety). ALPRAZolam Yes [id number] .25mg Take 1 [facility] (XANAX) 5-11 tablet by ity of 0.25 mg 00:00: mouth 3 [place] tablet 00 (three) Medical times Branch daily as needed for Other (anxiety). ALPRAZolam Yes [id number] .25mg Take 1 [facility] (XANAX) 5-11 tablet by ity of 0.25 mg 00:00: mouth 3 [place] tablet 00 (three) Medical times Branch daily as needed for Other (anxiety). ALPRAZolam 2021- No [id number] .25mg Take 1 [facility] (XANAX) 5-11 12-08 tablet by ity of 0.25 mg 00:00: 00:00 mouth 3 [place] tablet 00 :00 (three) Medical times Branch daily as needed for Other (anxiety). foLIC acid 2021- No [id number] 1mg Take 1 [facility] 1 mg tablet 5-11 10-14 tablet by it y of 00:00: 00:00 mouth [place] 00 :00 every Medical morning. Branch rOPINIRole 2021- No [id number] 5mg Take 1 [facility] 5 mg tablet 5-11 08-30 tablet by it y of 00:00: 00:00 mouth at [place] 00 :00 bedtime. Medical Branch atenoloL 50 2021- No [id number] 50mg Take 1 [facility] mg tablet 5-11 08-30 tablet by ity of 00:00: 00:00 mouth [place] 00 :00 daily. Medical Branch rosuvastati Yes 5mg Take 5 mg U nivers n 5 mg 4-19 by mouth ity of tablet 00:00: daily. Medical Branch VAGIFEM 10 Yes 10ug Insert 10 Un storm mcg tablet 4-19 mcg into ity o f 00:00: vagina 2 [place] 00 (two) Medical times per Branch week. rosuvastati 2021-0 Yes 5mg Take 5 mg U nivers n 5 mg 4-19 by mouth ity of tablet 00:00: daily. Medical Branch VAGIFEM 10 0 Yes 10ug Insert 10 Un storm mcg tablet 4-19 mcg into ity o f 00:00: vagina 2 (two) Medical times per Branch week. rosuvastati 2021-0 Yes 5mg Take 5 mg U nivers n 5 mg 4-19 by mouth ity of tablet 00:00: daily. Medical Branch VAGIFEM 10 Yes 10ug Insert 10 Un storm mcg tablet 4-19 mcg into ity o f 00:00: vagina 2 (two) Medical times per Branch week. VAGIFEM 10 0 Yes 10ug Insert 10 Un storm mcg tablet 4-19 mcg into ity o f 00:00: vagina 2 (two) Medical times per Branch week. VAGIFEM 10 0 Yes 10ug Insert 10 Un storm mcg tablet 4-19 mcg into ity o f 00:00: vagina 2 (two) Medical times per Branch week. VAGIFEM 10 0 Yes 10ug Insert 10 Un storm mcg tablet 4-19 mcg into ity o f 00:00: vagina 2 (two) Medical times per Branch week. VAGIFEM 10 0 Yes 10ug Insert 10 Un storm mcg tablet 4-19 mcg into ity o f 00:00: vagina 2 (two) Medical times per Branch week. VAGIFEM 10 0 Yes 10ug Insert 10 Un storm mcg tablet 4-19 mcg into ity o f 00:00: vagina 2 (two) Medical times per Branch week. VAGIFEM 10 2021-0 Yes 10ug Insert 10 Un storm mcg tablet 4-19 mcg into ity o f 00:00: vagina 2 (two) Medical times per Branch week. VAGIFEM 10 2021-0 Yes 10ug Insert 10 Un storm mcg tablet 4-19 mcg into ity o f 00:00: vagina 2 (two) Medical times per Branch week. VAGIFEM 10 2021-0 Yes 10ug Insert 10 Un storm mcg tablet 4-19 mcg into ity o f 00:00: vagina 2 (two) Medical times per Branch week. VAGIFEM 10 0 Yes 10ug Insert 10 Un storm mcg tablet 4-19 mcg into ity o f 00:00: vagina 2 00 (two) Medical times per Branch week. VAGIFEM 10 0 Yes 10ug Insert 10 Un storm mcg tablet 4-19 mcg into ity o f 00:00: vagina 2 00 (two) Medical times per Branch week. VAGIFEM 10 0 Yes 10ug Insert 10 Un storm mcg tablet 4-19 mcg into ity o f 00:00: vagina 2 (two) Medical times per Branch week. VAGIFEM 10 0 Yes 10ug Insert 10 Un storm mcg tablet 4-19 mcg into ity o f 00:00: vagina 2 (two) Medical times per Branch week. VAGIFEM 10 0 Yes 10ug Insert 10 Un storm mcg tablet 4-19 mcg into ity o f 00:00: vagina 2 (two) Medical times per Branch week. VAGIFEM 10 0 Yes 10ug Insert 10 Un storm mcg tablet 4-19 mcg into ity o f 00:00: vagina 2 (two) Medical times per Branch week. VAGIFEM 10 0 Yes 10ug Insert 10 Un storm mcg tablet 4-19 mcg into ity o f 00:00: vagina 2 (two) Medical times per Branch week. VAGIFEM 10 0 Yes 10ug Insert 10 Un storm mcg tablet 4-19 mcg into ity o f 00:00: vagina 2 (two) Medical times per Branch week. VAGIFEM 10 0 Yes 10ug Insert 10 Un storm mcg tablet 4-19 mcg into ity o f 00:00: vagina 2 (two) Medical times per Branch week. VAGIFEM 10 2021-0 Yes 10ug Insert 10 Un storm mcg tablet 4-19 mcg into ity o f 00:00: vagina 2 (two) Medical times per Branch week. VAGIFEM 10 2021-0 Yes 10ug Insert 10 Un storm mcg tablet 4-19 mcg into ity o f 00:00: vagina 2 00 (two) Medical times per Branch week. VAGIFEM 10 0 Yes 10ug Insert 10 Un storm mcg tablet 4-19 mcg into ity o f 00:00: vagina 2 [place] 00 (two) Medical times per Branch week. VAGIFEM 10 2021-0 Yes 10ug Insert 10 Un storm mcg tablet 4-19 mcg into ity o f 00:00: vagina 2 [place] 00 (two) Medical times per Branch week. VAGIFEM 10 0 Yes 10ug Insert 10 Un storm mcg tablet 4-19 mcg into ity o f 00:00: vagina 2 [place] 00 (two) Medical times per Branch week. VAGIFEM 0 Yes 10ug Insert 10 Unive rs VAGINAL 4-19 mcg into ity of 00:00: vagina 2 [place] 00 (two) Medical times per Branch week. VAGIFEM 0 Yes 10ug Insert 10 Unive rs VAGINAL 4-19 mcg into ity of 00:00: vagina 2 [place] 00 (two) Medical times per Branch week. VAGIFEM 0 Yes 10ug Insert 10 Unive rs VAGINAL 4-19 mcg into ity of 00:00: vagina 2 [place] 00 (two) Medical times per Branch week. VAGIFEM 0 Yes 10ug Insert 10 Unive rs VAGINAL 4-19 mcg into ity of 00:00: vagina 2 [place] 00 (two) Medical times per Branch week. VAGIFEM 0 Yes 10ug Insert 10 Unive rs VAGINAL 4-19 mcg into ity of 00:00: vagina 2 [place] 00 (two) Medical times per Branch week. VAGIFEM 0 Yes 10ug Insert 10 Unive rs VAGINAL 4-19 mcg into ity of 00:00: vagina 2 [place] 00 (two) Medical times per Branch week. VAGIFEM 0 2022- No 10ug Insert 10 Univ ers VAGINAL 4-19 03-27 mcg into ity of 00:00: 00:00 vagina 2 [place] 00 :00 (two) Medical times per Branch week. VAGIFEM 0 2022- No 10ug Insert 10 Univ ers VAGINAL 4-19 03-27 mcg into ity of 00:00: 00:00 vagina 2 [place] 00 :00 (two) Medical times per Branch week. VAGIFEM 0 2022- No 10ug Insert 10 Univ ers VAGINAL 4- 03-27 mcg into ity of 00:00: 00:00 vagina 2 [place] 00 :00 (two) Medical times per Branch week. rosuvastati 2021- No 5mg Take 5 mg Univers n 5 mg 08-13- by mouth ity of tablet 00:00: 00:00 daily. [place] 00 :00 Medical Branch trimethopri 2021-0 Yes 100mg Take 100 U nivers m 100 mg 4-18 mg by ity of tablet 00:00: mouth [place] 00 daily. Medical Branch trimethopri 2021-0 Yes 100mg Take 100 U nivers m 100 mg 4-18 mg by ity of tablet 00:00: mouth [place] 00 daily. Medical Branch trimethopri 2021-0 Yes 100mg Take 100 U nivers m 100 mg 4-18 mg by ity of tablet 00:00: mouth [place] 00 daily. Medical Branch trimethopri 2021-0 Yes 100mg Take 100 U nivers m 100 mg 4-18 mg by ity of tablet 00:00: mouth [place] 00 daily. Medical Branch trimethopri 2021-0 2021- No 100mg Take 100 [facility] m 100 mg 4-18 09-12 mg by ity of tablet 00:00: 00:00 mouth [place] 00 :00 daily. Medical Branch levETIRAcet 2021-0 Yes 250mg Take 250 U nivers am 500 mg 4-14 mg by ity of tablet 00:00: mouth 2 [place] (two) Medical times Branch daily. aspirin 81 2021-0 Yes 81mg Take 81 mg U nivers mg EC 4-14 by mouth ity of tablet 00:00: daily. Medical Branch levETIRAcet 2021-0 Yes 250mg Take 250 U nivers am 500 mg 4-14 mg by ity of tablet 00:00: mouth 2 [place] (two) Medical times Branch daily. aspirin 81 2-0 Yes 81mg Take 81 mg U nivers mg EC 4-14 by mouth ity of tablet 00:00: daily. Medical Branch levETIRAcet 2021-0 Yes 250mg Take 250 U nivers am 500 mg 4-14 mg by ity of tablet 00:00: mouth 2 [place] (two) Medical times Branch daily. aspirin 81 2022-0 Yes 81mg Take 81 mg U nivers mg EC 4-14 by mouth ity of tablet 00:00: daily. [facility] Branch levETIRAcet 2021-0 Yes 250mg Take 250 U nivers am 500 mg 4-14 mg by ity of tablet 00:00: mouth 2 [place] ([facility]) Medical times [place] daily. aspirin 81 2021-0 Yes 81mg Take 81 mg U nivers mg EC 4-14 by mouth ity of tablet 00:00: daily. [facility] Branch levETIRAcet 2021-0 Yes 250mg Take 250 U nivers am 500 mg 4-14 mg by ity of tablet 00:00: mouth 2 [place] ([facility]) Medical times [place] daily. aspirin 81 2021-0 Yes 81mg Take 81 mg U nivers mg EC 4-14 by mouth ity of tablet 00:00: daily. [place] [facility] Branch levETIRAcet 2021-0 Yes 250mg Take 250 U nivers am 500 mg 4-14 mg by ity of tablet 00:00: mouth 2 [place] ([facility]) Medical times [place] daily. aspirin 81 2021-0 Yes 81mg Take 81 mg U nivers mg EC 4-14 by mouth ity of tablet 00:00: daily. [place] [facility] Branch levETIRAcet 2021-0 Yes 250mg Take 250 U nivers am 500 mg 4-14 mg by ity of tablet 00:00: mouth 2 [place] [address] ([facility]) Medical times [place] daily. aspirin 81 2021-0 Yes 81mg Take 81 mg U nivers mg EC 4-14 by mouth ity of tablet 00:00: daily. [place] [facility] Branch levETIRAcet 2021-0 Yes 250mg Take 250 U nivers am 500 mg 4-14 mg by ity of tablet 00:00: mouth 2 [place] [address] ([facility]) Medical times [place] daily. aspirin 81 2021-0 Yes 81mg Take 81 mg U nivers mg EC 4-14 by mouth ity of tablet 00:00: daily. [place] [facility] Branch levETIRAcet 2021-0 Yes 250mg Take 250 U nivers am 500 mg 4-14 mg by ity of tablet 00:00: mouth 2 [place] [address] ([facility]) Medical times [place] daily. aspirin 81 2021-0 Yes 81mg Take 81 mg U nivers mg EC 4-14 by mouth ity of tablet 00:00: daily. Medical Branch levETIRAcet 2021-0 Yes 250mg Take 250 U nivers am 500 mg 4-14 mg by ity of tablet 00:00: mouth 2 [place] [address] ([facility]) Medical times [place] daily. aspirin 81 2-0 Yes 81mg Take 81 mg U nivers mg EC 4-14 by mouth ity of tablet 00:00: daily. Medical Branch levETIRAcet 2021-0 Yes 250mg Take 250 U nivers am 500 mg 4-14 mg by ity of tablet 00:00: mouth 2 [place] ([facility]) Medical times [place] daily. aspirin 81 2-0 Yes 81mg Take 81 mg U nivers mg EC 4-14 by mouth ity of tablet 00:00: daily. Medical Branch levETIRAcet 2021-0 Yes 250mg Take 250 U nivers am 500 mg 4-14 mg by ity of tablet 00:00: mouth 2 [place] [address] ([facility]) Medical times [place] daily. aspirin 81 2021-0 Yes 81mg Take 81 mg U nivers mg EC 4-14 by mouth ity of tablet 00:00: daily. [place] Medical Branch levETIRAcet 2021-0 Yes 250mg Take 250 U nivers am 500 mg 4-14 mg by ity of tablet 00:00: mouth 2 [place] [address] ([facility]) Medical times [place] daily. aspirin 81 2-0 Yes 81mg Take 81 mg U nivers mg EC 4-14 by mouth ity of tablet 00:00: daily. Medical Branch levETIRAcet 2-0 Yes 250mg Take 250 U nivers am 500 mg 4-14 mg by ity of tablet 00:00: mouth 2 [place] [address] ([facility]) Medical times [place] daily. aspirin 81 2-0 Yes 81mg Take 81 mg U nivers mg EC 4-14 by mouth ity of tablet 00:00: daily. [place] Medical Branch levETIRAcet 2-0 Yes 250mg Take 250 U nivers am 500 mg 4-14 mg by ity of tablet 00:00: mouth 2 [place] [address] ([facility]) Medical times [place] daily. aspirin 81 2-0 Yes 81mg Take 81 mg U nivers mg EC 4-14 by mouth ity of tablet 00:00: daily. Medical Branch levETIRAcet 2021-0 Yes 250mg Take 250 U nivers am 500 mg 4-14 mg by ity of tablet 00:00: mouth 2 [place] ([facility] Medical times [place] daily. aspirin 81 2021-0 Yes 81mg Take 81 mg U nivers mg EC 4-14 by mouth ity of tablet 00:00: daily. Medical Branch levETIRAcet 2021-0 Yes 250mg Take 250 U nivers am 500 mg 4-14 mg by ity of tablet 00:00: mouth 2 [place] ([facility]) Medical times [place] daily. aspirin 81 2021-0 Yes 81mg Take 81 mg U nivers mg EC 4-14 by mouth ity of tablet 00:00: daily. [place] Medical Branch levETIRAcet 2021-0 Yes 250mg Take 250 U nivers am 500 mg 4-14 mg by ity of tablet 00:00: mouth 2 [place] [address] ([facility] times [place] daily. aspirin 81 2021-0 Yes 81mg Take 81 mg U nivers mg EC 4-14 by mouth ity of tablet 00:00: daily. [place] Medical Branch levETIRAcet 2021-0 Yes 250mg Take 250 U nivers am 500 mg 4-14 mg by ity of tablet 00:00: mouth 2 [place] [address] ([facility] Medical times [place] daily. aspirin 81 2021-0 Yes 81mg Take 81 mg U nivers mg EC 4-14 by mouth ity of tablet 00:00: daily. [place] Medical Branch levETIRAcet 2021-0 Yes 250mg Take 250 U nivers am 500 mg 4-14 mg by ity of tablet 00:00: mouth 2 [place] [address] ([facility] Medical times [place] daily. aspirin 81 2021-0 Yes 81mg Take 81 mg U nivers mg EC 4-14 by mouth ity of tablet 00:00: daily. [place] Medical Branch levETIRAcet 2021-0 Yes 250mg Take 250 U nivers am 500 mg 4-14 mg by ity of tablet 00:00: mouth 2 [place] [address] ([facility] Medical times [place] daily. aspirin 81 2021-0 Yes 81mg Take 81 mg U nivers mg EC 4-14 by mouth ity of tablet 00:00: daily. [place] Medical Branch levETIRAcet 2021-0 Yes 250mg Take 250 U nivers am 500 mg 4-14 mg by ity of tablet 00:00: mouth 2 [place] (two) Medical times Branch daily. aspirin 81 2-0 Yes 81mg Take 81 mg U nivers mg EC 4-14 by mouth ity of tablet 00:00: daily. [place] Medical Branch levETIRAcet 2021-0 Yes 250mg Take 250 U nivers am 500 mg 4-14 mg by ity of tablet 00:00: mouth 2 [place] (two) Medical times Branch daily. aspirin 81 2-0 Yes 81mg Take 81 mg U nivers mg EC 4-14 by mouth ity of tablet 00:00: daily. [place] Medical Branch levETIRAcet 2021-0 Yes 250mg Take 250 U nivers am 500 mg 4-14 mg by ity of tablet 00:00: mouth 2 [place] ([facility]) Medical times Branch daily. aspirin 81 2-0 Yes 81mg Take 81 mg U nivers mg EC 4-14 by mouth ity of tablet 00:00: daily. [place] Medical Branch levETIRAcet 2021-0 Yes 250mg Take 250 U nivers am 500 mg 4-14 mg by ity of tablet 00:00: mouth 2 [place] (two) Medical times Branch daily. aspirin 81 2021-0 Yes 81mg Take 81 mg U nivers mg EC 4-14 by mouth ity of tablet 00:00: daily. [place] [address] Medical Branch levETIRAcet 2021-0 Yes 500mg Take 1 Uni vers am 500 mg 4-14 tablet by ity o f tablet 00:00: mouth in [place] the Medical morning Branch and 1 tablet in the evening. 1000 mg at night aspirin 81 2-0 Yes 81mg Take 1 Unive rs mg EC 4-14 tablet by ity of tablet 00:00: mouth in [place] the Medical morning. Branch levETIRAcet 2021-0 Yes 500mg Take 1 Uni vers am 500 mg 4-14 tablet by ity o f tablet 00:00: mouth in [place] [address] the Medical morning Branch and 1 tablet in the evening. 1000 mg at night aspirin 81 2022-0 Yes 81mg Take 1 Unive rs mg EC 4-14 tablet by ity of tablet 00:00: mouth in [place] [address] the Medical morning. Branch levETIRAcet 2022-0 Yes 500mg Take 1 Uni vers am 500 mg 4-14 tablet by ity o f tablet 00:00: mouth in [place] 00 the Medical morning Branch and 1 tablet in the evening. 1000 mg at night aspirin 81 2022-0 Yes 81mg Take 1 Unive rs mg EC 4-14 tablet by ity of tablet 00:00: mouth in [place] 00 the Medical morning. Branch levETIRAcet 2022-0 Yes 500mg Take 1 Uni vers am 500 mg 4-14 tablet by ity o f tablet 00:00: mouth in [place] 00 the Medical morning Branch and 1 tablet in the evening. 1000 mg at night aspirin 81 2022-0 Yes 81mg Take 1 Unive rs mg EC 4-14 tablet by ity of tablet 00:00: mouth in [place] the Medical morning. Branch levETIRAcet 2022-0 Yes 500mg Take 1 Uni vers am 500 mg 4-14 tablet by ity o f tablet 00:00: mouth in [place] the Medical morning Branch and 1 tablet in the evening. 1000 mg at night aspirin 81 2022-0 Yes 81mg Take 1 Unive rs mg EC 4-14 tablet by ity of tablet 00:00: mouth in [place] the Medical morning. Branch levETIRAcet 2022-0 Yes 500mg Take 1 Uni vers am 500 mg 4-14 tablet by ity o f tablet 00:00: mouth in [place] the Medical morning Branch and 1 tablet in the evening. 1000 mg at night aspirin 81 2022-0 Yes 81mg Take 1 Unive rs mg EC 4-14 tablet by ity of tablet 00:00: mouth in [place] the Medical morning. Branch levETIRAcet 2022-0 Yes 500mg Take 1 Uni vers am 500 mg 4-14 tablet by ity o f tablet 00:00: mouth in [place] 00 the Medical morning Branch and 1 tablet in the evening. 1000 mg at night aspirin 81 2022-0 Yes 81mg Take 1 Unive rs mg EC 4-14 tablet by ity of tablet 00:00: mouth in [place] the Medical morning. Branch levETIRAcet 2022-0 Yes 500mg Take 1 Uni vers am 500 mg 4-14 tablet by ity o f tablet 00:00: mouth in [place] the Medical morning Branch and 1 tablet in the evening. 1000 mg at night aspirin 81 2022-0 Yes 81mg Take 1 Unive rs mg EC 4-14 tablet by ity of tablet 00:00: mouth in [place] the Medical morning. Branch levETIRAcet 2022-0 Yes 500mg Take 1 Uni vers am 500 mg 4-14 tablet by ity o f tablet 00:00: mouth in [place] the Medical morning Branch and 1 tablet in the evening. 1000 mg at night aspirin 81 2022-0 Yes 81mg Take 1 Unive rs mg EC 4-14 tablet by ity of tablet 00:00: mouth in [place] the Medical morning. Branch levETIRAcet 2022-0 Yes 500mg Take 1 Uni vers am 500 mg 4-14 tablet by ity o f tablet 00:00: mouth in [place] the Medical morning Branch and 1 tablet in the evening. 1000 mg at night aspirin 81 2022-0 Yes 81mg Take 1 Unive rs mg EC 4-14 tablet by ity of tablet 00:00: mouth in [place] the Medical morning. Branch levETIRAcet 2022-0 Yes 500mg Take 1 Uni vers am 500 mg 4-14 tablet by ity o f tablet 00:00: mouth in [place] the Medical morning Branch and 1 tablet in the evening. 1000 mg at night aspirin 81 2022-0 Yes 81mg Take 1 Unive rs mg EC 4-14 tablet by ity of tablet 00:00: mouth in [place] the Medical morning. Branch levETIRAcet 2022-0 Yes 500mg Take 1 Uni vers am 500 mg 4-14 tablet by ity o f tablet 00:00: mouth in [place] the Medical morning Branch and 1 tablet in the evening. 1000 mg at night aspirin 81 2022-0 Yes 81mg Take 1 Unive rs mg EC 4-14 tablet by ity of tablet 00:00: mouth in [place] the Medical morning. Branch levETIRAcet 2022-0 Yes 500mg Take 1 Uni vers am 500 mg 4-14 tablet by ity o f tablet 00:00: mouth in [place] the Medical morning Branch and 1 tablet in the evening. 1000 mg at night aspirin 81 2022-0 Yes 81mg Take 1 Unive rs mg EC 4-14 tablet by ity of tablet 00:00: mouth in [place] the Medical morning. Branch levETIRAcet 2022-0 Yes 500mg Take 1 Uni vers am 500 mg 4-14 tablet by ity o f tablet 00:00: mouth in [place] 00 the Medical morning Branch and 1 tablet in the evening. 1000 mg at night aspirin 81 2022-0 Yes 81mg Take 1 Unive rs mg EC 4-14 tablet by ity of tablet 00:00: mouth in [place] the Medical morning. Branch levETIRAcet 2022-0 Yes 500mg Take 1 Uni vers am 500 mg 4-14 tablet by ity o f tablet 00:00: mouth in [place] 00 the Medical morning Branch and 1 tablet in the evening. 1000 mg at night aspirin 81 2022-0 Yes 81mg Take 1 Unive rs mg EC 4-14 tablet by ity of tablet 00:00: mouth in [place] the Medical morning. Branch levETIRAcet 2022-0 Yes 500mg Take 1 Uni vers am 500 mg 4-14 tablet by ity o f tablet 00:00: mouth in [place] 00 the Medical morning Branch and 1 tablet in the evening. 1000 mg at night aspirin 81 2022-0 Yes 81mg Take 1 Unive rs mg EC 4-14 tablet by ity of tablet 00:00: mouth in [place] the Medical morning. Branch levETIRAcet 2022-0 Yes 500mg Take 1 Uni vers am 500 mg 4-14 tablet by ity o f tablet 00:00: mouth in [place] 00 the Medical morning Branch and 1 tablet in the evening. 1000 mg at night aspirin 81 2022-0 Yes 81mg Take 1 Unive rs mg EC 4-14 tablet by ity of tablet 00:00: mouth in [place] the Medical morning. Branch levETIRAcet 2022-0 Yes 500mg Take 1 Uni vers am 500 mg 4-14 tablet by ity o f tablet 00:00: mouth in [place] 00 the Medical morning Branch and 1 tablet in the evening. 1000 mg at night aspirin 81 2022-0 Yes 81mg Take 1 Unive rs mg EC 4-14 tablet by ity of tablet 00:00: mouth in [place] the Medical morning. Branch busPIRone 2022-0 Yes [id number] 10mg Take 1 Un storm 10 mg 3-31 tablet by ity of tablet 00:00: mouth 2 [place] [address] (two) Medical times Branch daily as needed for Other (anxiety). busPIRone 2022-0 Yes [id number] 10mg Take 1 Un storm 10 mg 3-31 tablet by ity of tablet 00:00: mouth 2 (two) Medical times Branch daily as needed for Other (anxiety). busPIRone 2021-0 Yes [id number] 10mg Take 1 Un storm 10 mg 3-31 tablet by ity of tablet 00:00: mouth 2 00 (two) Medical times Branch daily as needed for Other (anxiety). busPIRone 2021-0 Yes [id number] 10mg Take 1 Un storm 10 mg 3-31 tablet by ity of tablet 00:00: mouth 2 (two) Medical times Branch daily as needed for Other (anxiety). busPIRone 2021-0 Yes [id number] 10mg Take 1 Un storm 10 mg 3-31 tablet by ity of tablet 00:00: mouth 2 (two) Medical times Branch daily as needed for Other (anxiety). busPIRone 2021-0 Yes [id number] 10mg Take 1 Un storm 10 mg 3-31 tablet by ity of tablet 00:00: mouth (two) Medical times Branch daily as needed for Other (anxiety). busPIRone 2021-0 Yes [id number] 10mg Take 1 [facility] storm 10 mg 3-31 tablet by ity of tablet 00:00: mouth 2 (two) Medical times Branch daily as needed for Other (anxiety). busPIRone 2021- No [id number] 10mg Take 1 U nivers 10 mg 3-31 11-08 tablet by ity of tablet 00:00: 00:00 mouth 2 [place] 00 :00 (two) Medical times Branch daily as needed for Other (anxiety). busPIRone 2021-0 2021- No [id number] 10mg Take 1 U nivers 10 mg 3-31 11-08 tablet by ity of tablet 00:00: 00:00 mouth 2 [place] 00 :00 (two) Medical times Branch daily as needed for Other (anxiety). busPIRone 2021-0 2021- No [id number] 10mg Take 1 [facility] nivers 10 mg 3-31 11-08 tablet by ity of tablet 00:00: 00:00 mouth 2 [place] 00 :00 (two) Medical times Branch daily as needed for Other (anxiety). traZODone 2021- No [id number] 50mg Take 1 [facility] nivers 50 mg 3-31 08-24 tablet by ity of tablet 00:00: 00:00 mouth at [place] 00 :00 bedtime. Medical Branch traZODone 2021- No [id number] 50mg Take 1 U nivers 50 mg 3-31 08-24 tablet by ity of tablet 00:00: 00:00 mouth at [place] 00 :00 bedtime. [facility] ezetimibe-r 2021-0 Yes [id number] 10mg Take 10 mg [facility] osuvastatin 3-08 by mouth ity of 10-10 mg 00:00: daily. [place] Tab 00 [facility] citalopram 2021-0 Yes [id number] 20mg Take 1 [facility] nivers 20 mg 3-08 tablet by ity of tablet 00:00: mouth [place] 00 daily. Medical Branch ezetimibe-r 2021-0 Yes [id number] 10mg Take 10 mg [facility] osuvastatin 3-08 by mouth ity of 10-10 mg 00:00: daily. [place] Tab 00 [facility] citalopram 2021-0 Yes [id number] 20mg Take 1 [facility] nivers 20 mg 3-08 tablet by ity of tablet 00:00: mouth [place] 00 daily. [facility] ezetimibe-r 2021-0 Yes [id number] 10mg Take 10 mg [facility] osuvastatin 3-08 by mouth ity of 10-10 mg 00:00: daily. [place] Tab 00 [facility] citalopram 2021-0 Yes [id number] 20mg Take 1 [facility] nivers 20 mg 3-08 tablet by ity of tablet 00:00: mouth [place] 00 daily. Medical [facility] ezetimibe-r 2021-0 Yes [id number] 10mg Take 10 mg [facility] osuvastatin 3-08 by mouth ity of 10-10 mg 00:00: daily. [place] Tab 00 [facility] citalopram 2021-0 Yes [id number] 20mg Take 1 U nivers 20 mg 3-08 tablet by ity of tablet 00:00: mouth [place] 00 daily. Medical [facility] ezetimibe-r 2021-0 Yes [id number] 10mg Take 10 mg [facility] osuvastatin 3-08 by mouth ity of 10-10 mg 00:00: daily. [place] Tab 00 [facility] citalopram 2021-0 Yes [id number] 20mg Take 1 [facility] nivers 20 mg 3-08 tablet by ity of tablet 00:00: mouth [place] 00 daily. Medical [facility] ezetimibe-r 2021-0 Yes [id number] 10mg Take 10 mg [facility] osuvastatin 3-08 by mouth ity of 10-10 mg 00:00: daily. [place] Tab 00 [facility] citalopram 2021-0 Yes [id number] 20mg Take 1 U nivers 20 mg 3-08 tablet by ity of tablet 00:00: mouth [place] 00 daily. Medical [facility] ezetimibe-r 2021-0 Yes [id number] 10mg Take 10 mg [facility] osuvastatin 3-08 by mouth ity of 10-10 mg 00:00: daily. [place] Tab 00 [facility] citalopram 2021-0 Yes [id number] 20mg Take 1 U nivers 20 mg 3-08 tablet by ity of tablet 00:00: mouth [place] 00 daily. Medical [facility] ezetimibe-r 2021-0 Yes [id number] 10mg Take 10 mg [facility] osuvastatin 3-08 by mouth ity of 10-10 mg 00:00: daily. [place] Tab 00 [facility] citalopram 2021-0 Yes [id number] 20mg Take 1 U nivers 20 mg 3-08 tablet by ity of tablet 00:00: mouth [place] 00 daily. Medical [facility] ezetimibe-r 2021-0 Yes [id number] 10mg Take 10 mg [facility] osuvastatin 3-08 by mouth ity of 10-10 mg 00:00: daily. [place] Tab 00 [facility] citalopram 2021-0 Yes [id number] 20mg Take 1 [facility] nivers 20 mg 3-08 tablet by ity of tablet 00:00: mouth [place] 00 daily. Medical [facility] ezetimibe-r 2-0 Yes [id number] 10mg Take 10 mg [facility] osuvastatin 3-08 by mouth ity of 10-10 mg 00:00: daily. [place] Tab 00 [facility] citalopram 2021-0 Yes [id number] 20mg Take 1 U nivers 20 mg 3-08 tablet by ity of tablet 00:00: mouth [place] 00 daily. [facility] ezetimibe-r 2-0 Yes [id number] 10mg Take 10 mg [facility] osuvastatin 3-08 by mouth ity of 10-10 mg 00:00: daily. [place] Tab 00 [facility] citalopram 2021-0 Yes [id number] 20mg Take 1 U nivers 20 mg 3-08 tablet by ity of tablet 00:00: mouth [place] 00 daily. Medical Branch ezetimibe-r 2-0 Yes [id number] 10mg Take 10 mg [facility] osuvastatin 3-08 by mouth ity of 10-10 mg 00:00: daily. [place] Tab 00 [facility] Branch citalopram 2021-0 Yes [id number] 20mg Take 1 U nivers 20 mg 3-08 tablet by ity of tablet 00:00: mouth [place] 00 daily. Medical Branch ezetimibe-r 2021-0 Yes [id number] 10mg Take 10 mg [facility] osuvastatin 3-08 by mouth ity of 10-10 mg 00:00: daily. [place] Tab 00 [facility] citalopram 2021-0 Yes [id number] 20mg Take 1 U nivers 20 mg 3-08 tablet by ity of tablet 00:00: mouth [place] 00 daily. Medical Branch ezetimibe-r 2021-0 Yes [id number] 10mg Take 10 mg [facility] osuvastatin 3-08 by mouth ity of 10-10 mg 00:00: daily. [place] Tab 00 Medical Branch citalopram 2021-0 Yes [id number] 20mg Take 1 U nivers 20 mg 3-08 tablet by ity of tablet 00:00: mouth [place] 00 daily. Medical Branch ezetimibe-r 2021-0 Yes [id number] 10mg Take 10 mg [facility] osuvastatin 3-08 by mouth ity of 10-10 mg 00:00: daily. [place] Tab 00 [facility] citalopram 2021-0 Yes [id number] 20mg Take 1 U nivers 20 mg 3-08 tablet by ity of tablet 00:00: mouth [place] 00 daily. Medical Branch ezetimibe-r 2021-0 Yes [id number] 10mg Take 10 mg [facility] osuvastatin 3-08 by mouth ity of 10-10 mg 00:00: daily. [place] Tab 00 Medical Branch citalopram 2021-0 Yes [id number] 20mg Take 1 U nivers 20 mg 3-08 tablet by ity of tablet 00:00: mouth [place] 00 daily. Medical Branch ezetimibe-r 2021-0 Yes [id number] 10mg Take 10 mg [facility] osuvastatin 3-08 by mouth ity of 10-10 mg 00:00: daily. [facility] 00 Medical Branch citalopram 2021-0 Yes [id number] 20mg Take 1 U nivers 20 mg 3-08 tablet by ity of tablet 00:00: mouth daily. Medical Branch ezetimibe-r 2021-0 Yes [id number] 10mg Take 10 mg [facility] osuvastatin 3-08 by mouth ity of 10-10 mg 00:00: daily. [place] Tab 00 Medical Branch ezetimibe-r 2021-0 Yes [id number] 10mg Take 10 mg [facility] osuvastatin 3-08 by mouth ity of 10-10 mg 00:00: daily. [place] [address] Medical Branch ezetimibe-r 2021-0 Yes [id number] 10mg Take 10 mg [facility] osuvastatin 3-08 by mouth ity of 10-10 mg 00:00: daily. [place] Tab 00 Medical Branch ezetimibe-r 2021-0 Yes [id number] 10mg Take 10 mg [facility] osuvastatin 3-08 by mouth ity of 10-10 mg 00:00: daily. [facility] 00 Medical Branch ezetimibe-r 2021-0 Yes [id number] 10mg Take 10 mg [facility] osuvastatin 3-08 by mouth ity of 10-10 mg 00:00: daily. [facility] 00 Medical Branch ezetimibe-r 2021-0 Yes [id number] 10mg Take 10 mg [facility] osuvastatin 3-08 by mouth ity of 10-10 mg 00:00: daily. [place] Tab Medical Branch ezetimibe-r 2021-0 Yes [id number] 10mg Take 10 mg [facility] osuvastatin 3-08 by mouth ity of 10-10 mg 00:00: daily. [place] [address] Medical Branch ezetimibe-r 2021-0 Yes [id number] 10mg Take 10 mg [facility] osuvastatin 3-08 by mouth ity of 10-10 mg 00:00: daily. [place] [address] Medical Branch ezetimibe-r 2021-0 Yes [id number] 10mg Take 10 mg [facility] osuvastatin 3-08 by mouth ity of 10-10 mg 00:00: daily. [address] Branch ezetimibe-r 2-0 Yes [id number] 10mg Take 10 mg [facility] osuvastatin 3-08 by mouth ity of 10-10 mg 00:00: daily. [address] Branch ezetimibe-r 2-0 Yes [id number] 10mg Take 10 mg [facility] osuvastatin 3-08 by mouth ity of 10-10 mg 00:00: daily. [address] Branch ezetimibe-r 2-0 Yes [id number] 10mg Take 10 mg [facility] osuvastatin 3-08 by mouth ity of 10-10 mg 00:00: daily. [address] Branch ezetimibe-r 2021-0 Yes [id number] 10mg Take 10 mg [facility] osuvastatin 3-08 by mouth ity of 10-10 mg 00:00: daily. [address] ezetimibe-r 2-0 Yes [id number] 10mg Take 10 mg [facility] osuvastatin 3-08 by mouth ity of 10-10 mg 00:00: daily. [address] Branch ezetimibe-r 2-0 Yes [id number] 10mg Take 10 mg [facility] osuvastatin 3-08 by mouth ity of 10-10 mg 00:00: daily. [address] ezetimibe-r 2-0 Yes [id number] 10mg Take 10 mg [facility] osuvastatin 3-08 by mouth ity of 10-10 mg 00:00: daily. [address] Branch ezetimibe-r 2-0 Yes [id number] 10mg Take 10 mg [facility] osuvastatin 3-08 by mouth ity of 10-10 mg 00:00: daily. [address] ezetimibe-r 2-0 Yes [id number] 10mg Take 10 mg [facility] osuvastatin 3-08 by mouth ity of 10-10 mg 00:00: daily. [address] Branch ezetimibe-r 2-0 Yes [id number] 10mg Take 10 mg Univers osuvastatin 3-08 by mouth ity of 10-10 mg 00:00: daily. [address] Branch ezetimibe-r 2022-0 Yes [id number] 10mg Take 10 mg [facility] osuvastatin 3-08 by mouth ity of 10-10 mg 00:00: daily. [place] Tab 00 Medical Branch ezetimibe-r 2021-0 Yes [id number] 10mg Take 10 mg [facility] osuvastatin 3-08 by mouth ity of 10-10 mg 00:00: daily. [place] Tab 00 Medical Branch ezetimibe-r 2021-0 Yes [id number] 10mg Take 10 mg [facility] osuvastatin 3-08 by mouth ity of 10-10 mg 00:00: daily. [place] Tab 00 Medical Branch ezetimibe-r 2021-0 Yes [id number] 10mg Take 10 mg [facility] osuvastatin 3-08 by mouth ity of 10-10 mg 00:00: daily. [facility] 00 Medical Branch ezetimibe-r 2021-0 Yes [id number] 10mg Take 10 mg [facility] osuvastatin 3-08 by mouth ity of 10-10 mg 00:00: daily. [facility] 00 Medical Branch ezetimibe-r 2021-0 Yes [id number] 10mg Take 10 mg [facility] osuvastatin 3-08 by mouth ity of 10-10 mg 00:00: daily. [place] Tab 00 Medical Branch ezetimibe-r 2021-0 Yes [id number] 10mg Take 10 mg [facility] osuvastatin 3-08 by mouth ity of 10-10 mg 00:00: daily. [facility] 00 Medical Branch citalopram 2021-0 3- No [id number] 20mg Take 1 [facility] 20 mg 3-08 -27 tablet by ity of tablet 00:00: 00:00 mouth [place] 00 :00 daily. Medical Branch citalopram 2021-0 2022- No [id number] 20mg Take 1 [facility] 20 mg 3-08 -27 tablet by ity of tablet 00:00: 00:00 mouth [place] 00 :00 daily. Medical Branch meclizine 2021-0 Yes [id number] 25mg Take 1 Un storm 25 mg 1-05 tablet by ity of tablet 00:00: mouth [place] 00 every 6 Medical (six) Branch hours as needed for Dizziness. meclizine 2021-0 Yes [id number] 25mg Take 1 Un storm 25 mg 1-05 tablet by ity of tablet 00:00: mouth [place] 00 every 6 Medical (six) Branch hours as needed for Dizziness. meclizine 2021-0 Yes [id number] 25mg Take 1 Un storm 25 mg 1-05 tablet by ity of tablet 00:00: mouth [place] 00 every 6 Medical (six) Branch hours as needed for Dizziness. meclizine 2021-0 Yes [id number] 25mg Take 1 Un storm 25 mg 1-05 tablet by ity of tablet 00:00: mouth [place] 00 every 6 Medical (six) Branch hours as needed for Dizziness. meclizine 2021-0 Yes [id number] 25mg Take 1 Un storm 25 mg 1-05 tablet by ity of tablet 00:00: mouth [place] 00 every 6 Medical (six) Branch hours as needed for Dizziness. meclizine 2021-0 Yes [id number] 25mg Take 1 Un storm 25 mg 1-05 tablet by ity of tablet 00:00: mouth [place] 00 every 6 Medical (six) Branch hours as needed for Dizziness. meclizine 0 Yes [id number] 25mg Take 1 Un storm 25 mg 1-05 tablet by ity of tablet 00:00: mouth [place] 00 every 6 Medical (six) Branch hours as needed for Dizziness. meclizine 0 Yes [id number] 25mg Take 1 Un storm 25 mg 1-05 tablet by ity of tablet 00:00: mouth [place] 00 every 6 Medical (six) Branch hours as needed for Dizziness. meclizine 2021-0 Yes [id number] 25mg Take 1 Un storm 25 mg 1-05 tablet by ity of tablet 00:00: mouth [place] 00 every 6 Medical (six) Branch hours as needed for Dizziness. meclizine 2021-0 Yes [id number] 25mg Take 1 Un storm 25 mg 1-05 tablet by ity of tablet 00:00: mouth [place] 00 every 6 Medical (six) Branch hours as needed for Dizziness. meclizine 2021-0 Yes [id number] 25mg Take 1 Un storm 25 mg 1-05 tablet by ity of tablet 00:00: mouth [place] 00 every 6 Medical (six) Branch hours as needed for Dizziness. meclizine 2021-0 Yes [id number] 25mg Take 1 Un storm 25 mg 1-05 tablet by ity of tablet 00:00: mouth [place] 00 every 6 Medical (six) Branch hours as needed for Dizziness. meclizine 2021-0 Yes [id number] 25mg Take 1 Un storm 25 mg 1-05 tablet by ity of tablet 00:00: mouth [place] 00 every 6 Medical (six) Branch hours as needed for Dizziness. meclizine 2021-0 Yes [id number] 25mg Take 1 Un storm 25 mg 1-05 tablet by ity of tablet 00:00: mouth [place] 00 every 6 Medical (six) Branch hours as needed for Dizziness. meclizine 2021-0 Yes [id number] 25mg Take 1 Un storm 25 mg 1-05 tablet by ity of tablet 00:00: mouth [place] 00 every 6 Medical (six) Branch hours as needed for Dizziness. meclizine 2021-0 Yes [id number] 25mg Take 1 Un storm 25 mg 1-05 tablet by ity of tablet 00:00: mouth [place] 00 every 6 Medical (six) Branch hours as needed for Dizziness. meclizine 0 Yes [id number] 25mg Take 1 Un storm 25 mg 1-05 tablet by ity of tablet 00:00: mouth [place] 00 every 6 Medical (six) Branch hours as needed for Dizziness. meclizine 0 Yes [id number] 25mg Take 1 Un storm 25 mg 1-05 tablet by ity of tablet 00:00: mouth [place] 00 every 6 Medical (six) Branch hours as needed for Dizziness. meclizine 2021-0 Yes [id number] 25mg Take 1 Un storm 25 mg 1-05 tablet by ity of tablet 00:00: mouth [place] 00 every 6 Medical (six) Branch hours as needed for Dizziness. meclizine 2021-0 Yes [id number] 25mg Take 1 Un storm 25 mg 1-05 tablet by ity of tablet 00:00: mouth [place] 00 every 6 Medical (six) Branch hours as needed for Dizziness. meclizine 2021-0 Yes [id number] 25mg Take 1 Un storm 25 mg 1-05 tablet by ity of tablet 00:00: mouth [place] 00 every 6 Medical (six) Branch hours as needed for Dizziness. meclizine 2021-0 Yes [id number] 25mg Take 1 Un storm 25 mg 1-05 tablet by ity of tablet 00:00: mouth [place] 00 every 6 Medical (six) Branch hours as needed for Dizziness. meclizine 2021-0 Yes [id number] 25mg Take 1 Un storm 25 mg 1-05 tablet by ity of tablet 00:00: mouth [place] 00 every 6 Medical (six) Branch hours as needed for Dizziness. meclizine 2021-0 Yes [id number] 25mg Take 1 Un storm 25 mg 1-05 tablet by ity of tablet 00:00: mouth [place] 00 every 6 Medical (six) Branch hours as needed for Dizziness. meclizine 2021-0 Yes [id number] 25mg Take 1 Un storm 25 mg 1-05 tablet by ity of tablet 00:00: mouth [place] 00 every 6 Medical (six) Branch hours as needed for Dizziness. meclizine 2021-0 Yes [id number] 25mg Take 1 Un storm 25 mg 1-05 tablet by ity of tablet 00:00: mouth [place] 00 every 6 Medical (six) Branch hours as needed for Dizziness. meclizine 0 Yes [id number] 25mg Take 1 Un storm 25 mg 1-05 tablet by ity of tablet 00:00: mouth [place] 00 every 6 Medical (six) Branch hours as needed for Dizziness. meclizine 0 Yes [id number] 25mg Take 1 Un storm 25 mg 1-05 tablet by ity of tablet 00:00: mouth [place] 00 every 6 Medical (six) Branch hours as needed for Dizziness. meclizine 2021-0 Yes [id number] 25mg Take 1 Un storm 25 mg 1-05 tablet by ity of tablet 00:00: mouth [place] 00 every 6 Medical (six) Branch hours as needed for Dizziness. meclizine 2021-0 Yes [id number] 25mg Take 1 Un storm 25 mg 1-05 tablet by ity of tablet 00:00: mouth [place] 00 every 6 Medical (six) Branch hours as needed for Dizziness. meclizine 2021-0 Yes [id number] 25mg Take 1 Un storm 25 mg 1-05 tablet by ity of tablet 00:00: mouth [place] 00 every 6 Medical (six) Branch hours as needed for Dizziness. meclizine 2021-0 Yes [id number] 25mg Take 1 Un storm 25 mg 1-05 tablet by ity of tablet 00:00: mouth [place] 00 every 6 Medical (six) Branch hours as needed for Dizziness. meclizine Yes [id number] 25mg Take 1 Un storm 25 mg 1-05 tablet by ity of tablet 00:00: mouth [place] 00 every 6 Medical (six) Branch hours as needed for Dizziness. meclizine Yes [id number] 25mg Take 1 Un storm 25 mg 1-05 tablet by ity of tablet 00:00: mouth [place] 00 every 6 Medical (six) Branch hours as needed for Dizziness. meclizine Yes [id number] 25mg Take 1 Un storm 25 mg 1-05 tablet by ity of tablet 00:00: mouth [place] 00 every 6 Medical (six) Branch hours as needed for Dizziness. meclizine Yes [id number] 25mg Take 1 Un storm 25 mg 1-05 tablet by ity of tablet 00:00: mouth [place] 00 every 6 Medical (six) Branch hours as needed for Dizziness. meclizine Yes [id number] 25mg Take 1 Un storm 25 mg 1-05 tablet by ity of tablet 00:00: mouth [place] 00 every 6 Medical (six) Branch hours as needed for Dizziness. meclizine 2022- No [id number] 25mg Take 1 U nivers 25 mg 1-05 04-10 tablet by ity of tablet 00:00: 00:00 mouth [place] 00 :00 every 6 Medical (six) Branch hours as needed for Dizziness. meclizine 2022- No [id number] 25mg Take 1 U nivers 25 mg 1-05 04-10 tablet by ity of tablet 00:00: 00:00 mouth [place] 00 :00 every 6 Medical (six) Branch hours as needed for Dizziness. Immunizations Ordered Filled Immunization Date Status Comments [facility] e Immunization Name Name SARS-COV-2 COVID-19 2020-06-01 Completed Unive rsity of MODERNA VACCINE 00:00:00 [facility] Branch SARS-COV-2 COVID-19 2020-06-01 Completed Unive rsity of MODERNA VACCINE 00:00:00 [facility] Branch SARS-COV-2 COVID-19 2020-06-01 Completed Unive rsity of MODERNA VACCINE 00:00:00 [place] [facility] Branch SARS-COV-2 COVID-19 2020-06-01 Completed Unive rsity of MODERNA VACCINE 00:00:00 [place] Med ical Branch SARS-COV-2 COVID-19 2020-06-01 Completed Unive rsity of MODERNA 12+ YRS 00:00:00 [place] Med ical VACCINE Branch SARS-COV-2 COVID-19 2020-06-01 Completed Unive rsity of MODERNA 12+ YRS 00:00:00 [place] Med ical VACCINE Branch SARS-COV-2 COVID-19 2020-06-01 Completed Unive rsity of MODERNA 12+ YRS 00:00:00 [place] Med ical VACCINE Branch SARS-COV-2 COVID-19 2020-06-01 Completed Unive rsity of MODERNA 12+ YRS 00:00:00 [place] Med ical VACCINE Branch SARS-COV-2 COVID-19 2020-06-01 Completed Unive rsity of MODERNA 12+ YRS 00:00:00 [place] Med ical VACCINE Branch SARS-COV-2 COVID-19 2020-06-01 Completed Unive rsity of MODERNA 12+ YRS 00:00:00 [place] Med ical VACCINE Branch SARS-COV-2 COVID-19 2020-06-01 Completed Unive rsity of MODERNA 12+ YRS 00:00:00 [place] Med ical VACCINE Branch SARS-COV-2 COVID-19 2020-06-01 Completed Unive rsity of MODERNA 12+ YRS 00:00:00 [place] Med ical VACCINE Branch SARS-COV-2 COVID-19 2020-06-01 Completed Unive rsity of MODERNA 12+ YRS 00:00:00 [place] Med ical VACCINE Branch SARS-COV-2 COVID-19 2020-06-01 Completed Unive rsity of MODERNA 12+ YRS 00:00:00 [place] Med ical VACCINE Branch SARS-COV-2 COVID-19 2020-06-01 Completed Unive rsity of MODERNA 12+ YRS 00:00:00 [place] Med ical VACCINE Branch SARS-COV-2 COVID-19 2020-06-01 Completed Unive rsity of MODERNA 12+ YRS 00:00:00 [place] Med ical VACCINE Branch SARS-COV-2 COVID-19 2020-06-01 Completed Unive rsity of MODERNA 12+ YRS 00:00:00 [place] Med ical VACCINE Branch SARS-COV-2 COVID-19 2020-06-01 Completed Unive rsity of MODERNA 12+ YRS 00:00:00 [place] Med ical VACCINE Branch SARS-COV-2 COVID-19 2020-06-01 Completed Unive rsity of MODERNA 12+ YRS 00:00:00 [place] Med ical VACCINE Branch SARS-COV-2 COVID-19 2020-06-01 Completed Unive rsity of MODERNA 12+ YRS 00:00:00 [place] Med ical VACCINE Branch SARS-COV-2 COVID-19 2020-06-01 Completed Unive rsity of MODERNA 12+ YRS 00:00:00 [place] Med ical VACCINE Branch SARS-COV-2 COVID-19 2020-06-01 Completed Unive rsity of MODERNA 12+ YRS 00:00:00 [place] Med ical VACCINE Branch SARS-COV-2 COVID-19 2020-06-01 Completed Unive rsity of MODERNA 12+ YRS 00:00:00 [place] Med ical VACCINE Branch SARS-COV-2 COVID-19 2020-06-01 Completed Unive rsity of MODERNA 12+ YRS 00:00:00 [place] Med ical VACCINE Branch SARS-COV-2 COVID-19 2020-06-01 Completed Unive rsity of MODERNA 12+ YRS 00:00:00 [place] Med ical VACCINE Branch SARS-COV-2 COVID-19 2020-06-01 Completed Unive rsity of MODERNA 12+ YRS 00:00:00 [place] Med ical VACCINE Branch SARS-COV-2 COVID-19 2020-06-01 Completed Unive rsity of MODERNA 12+ YRS 00:00:00 [place] Med ical VACCINE Branch SARS-COV-2 COVID-19 2020-06-01 Completed Unive rsity of MODERNA 12+ YRS 00:00:00 [place] Med ical VACCINE Branch SARS-COV-2 COVID-19 2020-06-01 Completed Unive rsity of MODERNA 12+ YRS 00:00:00 [place] Med ical VACCINE Branch SARS-COV-2 COVID-19 2020-06-01 Completed Unive rsity of MODERNA 12+ YRS 00:00:00 [place] Med ical VACCINE Branch SARS-COV-2 COVID-19 2020-06-01 Completed Unive rsity of MODERNA 12+ YRS 00:00:00 [place] Med ical VACCINE Branch SARS-COV-2 COVID-19 2020-06-01 Completed Unive rsity of MODERNA 12+ YRS 00:00:00 [place] Med ical VACCINE Branch SARS-COV-2 COVID-19 2020-06-01 Completed Unive rsity of MODERNA 12+ YRS 00:00:00 [place] Med ical VACCINE Branch SARS-COV-2 COVID-19 2020-06-01 Completed Unive rsity of MODERNA 12+ YRS 00:00:00 [place] Med ical VACCINE Branch SARS-COV-2 COVID-19 2020-06-01 Completed Unive rsity of MODERNA 12+ YRS 00:00:00 [place] Med ical VACCINE Branch SARS-COV-2 COVID-19 2020-06-01 Completed Unive rsity of MODERNA 12+ YRS 00:00:00 [place] Med ical VACCINE Branch SARS-COV-2 COVID-19 2020-06-01 Completed Unive rsity of MODERNA 12+ YRS 00:00:00 [place] Med ical VACCINE Branch SARS-COV-2 COVID-19 2020-06-01 Completed Unive rsity of MODERNA 12+ YRS 00:00:00 [place] Med ical VACCINE Branch SARS-COV-2 COVID-19 2020-06-01 Completed Unive rsity of MODERNA 12+ YRS 00:00:00 [place] Med ical VACCINE Branch SARS-COV-2 COVID-19 2020-06-01 Completed Unive rsity of MODERNA 12+ YRS 00:00:00 [place] Med ical VACCINE Branch SARS-COV-2 COVID-19 2020-06-01 Completed Unive rsity of MODERNA 12+ YRS 00:00:00 [place] Med ical VACCINE Branch SARS-COV-2 COVID-19 2020-06-01 Completed Unive rsity of MODERNA 12+ YRS 00:00:00 [place] Med ical VACCINE Branch SARS-COV-2 COVID-19 2020-06-01 Completed Unive rsity of MODERNA 12+ YRS 00:00:00 [place] Med ical VACCINE Branch SARS-COV-2 COVID-19 2020-05-04 Completed Unive rsity of MODERNA VACCINE 00:00:00 [place] [facility] Branch SARS-COV-2 COVID-19 2020-05-04 Completed Unive rsity of MODERNA VACCINE 00:00:00 [place] [facility] ical Branch SARS-COV-2 COVID-19 2020-05-04 Completed Unive rsity of MODERNA VACCINE 00:00:00 [place] [facility] ical Branch SARS-COV-2 COVID-19 2020-05-04 Completed Unive rsity of MODERNA VACCINE 00:00:00 [place] [facility] ical Branch SARS-COV-2 COVID-19 2020-05-04 Completed Unive rsity of MODERNA 12+ YRS 00:00:00 [place] Med ical VACCINE Branch SARS-COV-2 COVID-19 2020-05-04 Completed Unive rsity of MODERNA 12+ YRS 00:00:00 [place] Med ical VACCINE Branch SARS-COV-2 COVID-19 2020-05-04 Completed Unive rsity of MODERNA 12+ YRS 00:00:00 [place] Med ical VACCINE Branch SARS-COV-2 COVID-19 2020-05-04 Completed Unive rsity of MODERNA 12+ YRS 00:00:00 [place] Med ical VACCINE Branch SARS-COV-2 COVID-19 2020-05-04 Completed Unive rsity of MODERNA 12+ YRS 00:00:00 [place] Med ical VACCINE Branch SARS-COV-2 COVID-19 2020-05-04 Completed Unive rsity of MODERNA 12+ YRS 00:00:00 [place] Med ical VACCINE Branch SARS-COV-2 COVID-19 2020-05-04 Completed Unive rsity of MODERNA 12+ YRS 00:00:00 [place] Med ical VACCINE Branch SARS-COV-2 COVID-19 2020-05-04 Completed Unive rsity of MODERNA 12+ YRS 00:00:00 [place] Med ical VACCINE Branch SARS-COV-2 COVID-19 2020-05-04 Completed Unive rsity of MODERNA 12+ YRS 00:00:00 [place] Med ical VACCINE Branch SARS-COV-2 COVID-19 2020-05-04 Completed Unive rsity of MODERNA 12+ YRS 00:00:00 [place] Med ical VACCINE Branch SARS-COV-2 COVID-19 2020-05-04 Completed Unive rsity of MODERNA 12+ YRS 00:00:00 [place] Med ical VACCINE Branch SARS-COV-2 COVID-19 2020-05-04 Completed Unive rsity of MODERNA 12+ YRS 00:00:00 [place] Med ical VACCINE Branch SARS-COV-2 COVID-19 2020-05-04 Completed Unive rsity of MODERNA 12+ YRS 00:00:00 [place] Med ical VACCINE Branch SARS-COV-2 COVID-19 2020-05-04 Completed Unive rsity of MODERNA 12+ YRS 00:00:00 [place] Med ical VACCINE Branch SARS-COV-2 COVID-19 2020-05-04 Completed Unive rsity of MODERNA 12+ YRS 00:00:00 [place] Med ical VACCINE Branch SARS-COV-2 COVID-19 2020-05-04 Completed Unive rsity of MODERNA 12+ YRS 00:00:00 [place] Med ical VACCINE Branch SARS-COV-2 COVID-19 2020-05-04 Completed Unive rsity of MODERNA 12+ YRS 00:00:00 [place] Med ical VACCINE Branch SARS-COV-2 COVID-19 2020-05-04 Completed Unive rsity of MODERNA 12+ YRS 00:00:00 [place] Med ical VACCINE Branch SARS-COV-2 COVID-19 2020-05-04 Completed Unive rsity of MODERNA 12+ YRS 00:00:00 [place] Med ical VACCINE Branch SARS-COV-2 COVID-19 2020-05-04 Completed Unive rsity of MODERNA 12+ YRS 00:00:00 [place] Med ical VACCINE Branch SARS-COV-2 COVID-19 2020-05-04 Completed Unive rsity of MODERNA 12+ YRS 00:00:00 [place] Med ical VACCINE Branch SARS-COV-2 COVID-19 2020-05-04 Completed Unive rsity of MODERNA 12+ YRS 00:00:00 [place] Med ical VACCINE Branch SARS-COV-2 COVID-19 2020-05-04 Completed Unive rsity of MODERNA 12+ YRS 00:00:00 [place] [facility] SARS-COV-2 COVID-19 2020-05-04 Completed Unive rsity of MODERNA 12+ YRS 00:00:00 [place] [facility] SARS-COV-2 COVID-19 2020-05-04 Completed Unive rsity of MODER[facility] 12+ YRS 00:00:00 [place] [facility] SARS-COV-2 COVID-19 2020-05-04 Completed Unive rsity of MODER[facility] 12+ YRS 00:00:00 [place] [facility] SARS-COV-2 COVID-19 2020-05-04 Completed Unive rsity of MODER[facility] 12+ YRS 00:00:00 [place] [facility] SARS-COV-2 COVID-19 2020-05-04 Completed Unive rsity of MODERNA 12+ YRS 00:00:00 [place] [facility] SARS-COV-2 COVID-19 2020-05-04 Completed Unive rsity of MODER[facility] 12+ YRS 00:00:00 [place] [facility] SARS-COV-2 COVID-19 2020-05-04 Completed Unive rsity of MODERNA 12+ YRS 00:00:00 [place] [facility] SARS-COV-2 COVID-19 2020-05-04 Completed Unive rsity of MODERNA 12+ YRS 00:00:00 [place] [facility] SARS-COV-2 COVID-19 2020-05-04 Completed Unive rsity of MODERNA 12+ YRS 00:00:00 [place] [facility] SARS-COV-2 COVID-19 2020-05-04 Completed Unive rsity of MODER[facility] 12+ YRS 00:00:00 [place] [facility] SARS-COV-2 COVID-19 2020-05-04 Completed Unive rsity of MODERNA 12+ YRS 00:00:00 [place] [facility] SARS-COV-2 COVID-19 2020-05-04 Completed Unive rsity of MODER[facility] 12+ YRS 00:00:00 [place] [facility] SARS-COV-2 COVID-19 2020-05-04 Completed Unive rsity of MODERNA 12+ YRS 00:00:00 [place] [facility] SARS-COV-2 COVID-19 2020-05-04 Completed Unive rsity of MODERNA 12+ YRS 00:00:00 [place] [facility] SARS-COV-2 COVID-19 2020-05-04 Completed Unive rsity of MODERNA 12+ YRS 00:00:00 [place] [facility] SARS-COV-2 COVID-19 2020-05-04 Completed Unive rsity of MODERNA 12+ YRS 00:00:00 [place] [facility] Influenza Virus 2020-04-11 Completed Universit y of Vaccine Quad .5 mL 00:00:00 [facility] MO [facility] Influenza Virus 2020-04-11 Completed Universit y of [facility] .5 mL 00:00:00 [facility] Influenza Virus 2020-04-11 Completed Universit y of [facility] .5 mL 00:00:00 [facility] Influenza Virus 2020-04-11 Completed [facility]it y of [facility] .5 mL 00:00:00 [facility] Influenza Virus 2020-04-11 Completed [facility]it y of [facility] .5 mL 00:00:00 [facility] Influenza Virus 2020-04-11 Completed [facility]it y of [facility] .5 mL 00:00:00 [facility] Influenza Virus 2020-04-11 Completed [facility]it y of [facility] .5 mL 00:00:00 [facility] Influenza Virus 2020-04-11 Completed [facility]it y of [facility] .5 mL 00:00:00 [facility] Influenza Virus 2020-04-11 Completed Universit y of [facility] .5 mL 00:00:00 [facility] Influenza Virus 2020-04-11 Completed [facility]it y of [facility] [place] .5 mL 00:00:00 [facility] Influenza Virus 2020-04-11 Completed [facility]it y of [facility] .5 mL 00:00:00 [facility] Influenza Virus 2020-04-11 Completed Universit y of [facility] .5 mL 00:00:00 [facility] Influenza Virus 2020-04-11 Completed Universit y of [facility] [place] .5 mL 00:00:00 [facility] Influenza Virus 2020-04-11 Completed Universit y of [facility] [place] .5 mL 00:00:00 [facility] Influenza Virus 2020-04-11 Completed [facility]it y of [facility] .5 mL 00:00:00 [facility] Influenza Virus 2020-04-11 Completed [facility]it y of [facility] [place] .5 mL 00:00:00 [facility] Influenza Virus 2020-04-11 Completed [facility]it y of [facility] .5 mL 00:00:00 [facility] Influenza Virus 2020-04-11 Completed [facility]it y of [facility] [place] .5 mL 00:00:00 [facility] Influenza Virus 2020-04-11 Completed [facility]it y of [place] .5 mL 00:00:00 [facility] Influenza Virus 2020-04-11 Completed [facility]it y of [facility] .5 mL 00:00:00 [facility] Influenza Virus 2020-04-11 Completed [facility]it y of [facility] [place] .5 mL 00:00:00 [facility] Influenza Virus 2020-04-11 Completed [facility]it y of [facility] .5 mL 00:00:00 [facility] Influenza Virus 2020-04-11 Completed [facility]it y of [facility] .5 mL 00:00:00 [facility] Influenza Virus 2020-04-11 Completed [facility]it y of [facility] [place] .5 mL 00:00:00 [facility] Influenza Virus 2020-04-11 Completed [facility]it y of [facility] .5 mL 00:00:00 [facility] Influenza Virus 2020-04-11 Completed [facility]it y of [facility] [place] .5 mL 00:00:00 [facility] Influenza Virus 2020-04-11 Completed [facility]it y of [facility] [place] .5 mL 00:00:00 [facility] Influenza Virus 2020-04-11 Completed [facility]it y of [facility] [place] .5 mL 00:00:00 [facility] Influenza Virus 2020-04-11 Completed [facility]it y of [facility] [place] .5 mL 00:00:00 [facility] Influenza Virus 2020-04-11 Completed [facility]it y of [facility] .5 mL 00:00:00 [facility] Influenza Virus 2020-04-11 Completed [facility]it y of [facility] [place] .5 mL 00:00:00 [facility] Influenza Virus 2020-04-11 Completed [facility]it y of [facility] [place] .5 mL 00:00:00 [facility] Influenza Virus 2020-04-11 Completed Universit y of [facility] [place] .5 mL 00:00:00 [facility] Influenza Virus 2020-04-11 Completed Universit y of [facility] [place] .5 mL 00:00:00 [facility] Influenza Virus 2020-04-11 Completed Universit y of [facility] [place] .5 mL 00:00:00 [facility] Influenza Virus 2020-04-11 Completed Universit y of [facility] .5 mL 00:00:00 [facility] Influenza Virus 2020-04-11 Completed [facility]it y of [place] .5 mL 00:00:00 [facility] Influenza Virus 2020-04-11 Completed [facility]it y of [place] .5 mL 00:00:00 [facility] Influenza Virus 2020-04-11 Completed [facility]it y of [facility] .5 mL 00:00:00 [facility] Influenza Virus 2020-04-11 Completed [facility]it y of [facility] .5 mL 00:00:00 [facility] Influenza Virus 2020-04-11 Completed [facility]it y of [facility] .5 mL 00:00:00 [facility] Influenza Virus 2020-04-11 Completed Universit y of [facility] .5 mL 00:00:00 [facility] Influenza Virus 2020-04-11 Completed Universit y of [facility] .5 mL 00:00:00 [place] [facility] Zoster Vaccine 2018-11-25 Completed University of Recombinant 00:00:00 [facility] Zoster Vaccine 2018-11-25 Completed University of Recombinant 00:00:00 [facility] Zoster Vaccine 2018-11-25 Completed University of Recombinant 00:00:00 [facility] Zoster Vaccine 2018-11-25 Completed University of Recombinant 00:00:00 [facility] Zoster Vaccine 2018-11-25 Completed University of Recombinant 00:00:00 [facility] Zoster Vaccine 2018-11-25 Completed University of Recombinant 00:00:00 [facility] Zoster Vaccine 2018-11-25 Completed University of Recombinant 00:00:00 [facility] Zoster Vaccine 2018-11-25 Completed University of Recombinant 00:00:00 [facility] Zoster Vaccine 2018-11-25 Completed University of Recombinant 00:00:00 [facility] Zoster Vaccine 2018-11-25 Completed University of Recombinant 00:00:00 [facility] Zoster Vaccine 2018-11-25 Completed University of Recombinant 00:00:00 [facility] Zoster Vaccine 2018-11-25 Completed University of Recombinant 00:00:00 [facility] Zoster Vaccine 2018-11-25 Completed University of Recombinant 00:00:00 [facility] Zoster Vaccine 2018-11-25 Completed University of Recombinant 00:00:00 [facility] Zoster Vaccine 2018-11-25 Completed University of Recombinant 00:00:00 [facility] Zoster Vaccine 2018-11-25 Completed University of Recombinant 00:00:00 [facility] Zoster Vaccine 2018-11-25 Completed University of Recombinant 00:00:00 [facility] Zoster Vaccine 2018-11-25 Completed University of Recombinant 00:00:00 [facility] Zoster Vaccine 2018-11-25 Completed University of Recombinant 00:00:00 [facility] Zoster Vaccine 2018-11-25 Completed University of Recombinant 00:00:00 [facility] Zoster Vaccine 2018-11-25 Completed University of Recombinant 00:00:00 [facility] Zoster Vaccine 2018-11-25 Completed University of Recombinant 00:00:00 [facility] Zoster Vaccine 2018-11-25 Completed University of Recombinant 00:00:00 [facility] Zoster Vaccine 2018-11-25 Completed University of Recombinant 00:00:00 [facility] Zoster Vaccine 2018-11-25 Completed University of Recombinant 00:00:00 [facility] Zoster Vaccine 2018-11-25 Completed University of Recombinant 00:00:00 [facility] Zoster Vaccine 2018-11-25 Completed University of Recombinant 00:00:00 [facility] Zoster Vaccine 2018-11-25 Completed University of Recombinant 00:00:00 [facility] Zoster Vaccine 2018-11-25 Completed University of Recombinant 00:00:00 [facility] Zoster Vaccine 2018-11-25 Completed University of Recombinant 00:00:00 [facility] Zoster Vaccine 2018-11-25 Completed University of Recombinant 00:00:00 [facility] Zoster Vaccine 2018-11-25 Completed University of Recombinant 00:00:00 [facility] Zoster Vaccine 2018-11-25 Completed University of Recombinant 00:00:00 [facility] Zoster Vaccine 2018-11-25 Completed University of Recombinant 00:00:00 [facility] Zoster Vaccine 2018-11-25 Completed University of Recombinant 00:00:00 [facility] Zoster Vaccine 2018-11-25 Completed University of Recombinant 00:00:00 [facility] Zoster Vaccine 2018-11-25 Completed University of Recombinant 00:00:00 [facility] Zoster Vaccine 2018-11-25 Completed University of Recombinant 00:00:00 [facility] Zoster Vaccine 2018-11-25 Completed University of Recombinant 00:00:00 [facility] Zoster Vaccine 2018-11-25 Completed University of Recombinant 00:00:00 [facility] Zoster Vaccine 2018-11-25 Completed University of Recombinant 00:00:00 [facility] Zoster Vaccine 2018-11-25 Completed University of Recombinant 00:00:00 [facility] Zoster Vaccine 2018-11-25 Completed University of Recombinant 00:00:00 [facility] Vital Signs Vital Name Observation Time Observation Value Comments Source Systolic blood 2022-08-04 20:11:00 125 mm[Hg] Univer sity of pressure [facility] Diastolic blood 2022-08-04 20:11:00 71 mm[Hg] Unive rsity of [facility] Heart rate 2022-08-04 20:11:00 75 /min Universi ty of [facility] Body temperature 2022-08-04 20:11:00 36.61 [facility] ersity of [facility] Body height 2022-08-04 20:11:00 167.6 cm Universi ty of [facility] Body weight 2022-08-04 20:11:00 84.823 kg Universi ty of [facility] BMI 2022-08-04 20:11:00 30.18 kg/m2 Universi ty [facility] Oxygen saturation in 2022-08-04 20:11:00 98 /min [facility] Arterial blood by [facility] Pulse oximetry Branch Systolic blood 2022-07-21 15:43:00 108 mm[Hg] Univer sity of pressure [facility] Diastolic blood 2022-07-21 15:43:00 61 mm[Hg] Unive rsity of pressure [facility] Heart rate 2022-07-21 15:43:00 58 /min Universi ty of [facility] Body temperature 2022-07-21 15:43:00 36.56 Holly Univ ersity of [facility] Body height 2022-07-21 15:43:00 167.6 cm Universi ty of [facility] Body weight 2022-07-21 15:43:00 84.687 kg Universi ty of [facility] BMI 2022-07-21 15:43:00 30.13 kg/m2 [facility] Systolic blood 2022-07-09 16:51:00 116 mm[Hg] Univer sity of pressure [facility] Diastolic blood 2022-07-09 16:51:00 82 mm[Hg] Unive rsity of pressure [facility] Heart rate 2022-07-09 16:51:00 60 /min Universi ty of [facility] Respiratory rate 2022-07-09 16:51:00 8 /min Univ ersity of [facility] Oxygen saturation in 2022-07-09 16:51:00 99 /min University of Arterial blood by [facility] tamra Pulse oximetry Branch Body temperature 2022-07-09 16:17:00 36.56 Holly Univ ersity of [facility] Body height 2022-07-01 21:00:00 167.6 cm [facility]i ty [facility] Body weight 2022-07-01 21:00:00 85.276 kg [facility]i [facility] BMI 2022-07-01 21:00:00 30.34 kg/m2 [facility] Heart rate 2022-07-09 16:43:00 63 /min [facility]i [facility] Respiratory rate 2022-07-09 16:43:00 15 /min Univ ersity of [facility] Oxygen saturation in 2022-07-09 16:43:00 97 /min University of Arterial blood by [facility] Pulse oximetry Branch Systolic blood 2022-07-09 16:40:00 90 mm[Hg] Univer sity of pressure [facility] Diastolic blood 2022-07-09 16:40:00 38 mm[Hg] Unive rsity of pressure [facility] Body temperature 2022-07-09 16:17:00 36.56 Holly Univ ersity of [facility] Body height 2022-07-01 21:00:00 167.6 cm [facility]i ty [facility] Body weight 2022-07-01 21:00:00 85.276 kg [facility]i [facility] BMI 2022-07-01 21:00:00 30.34 kg/m2 [facility] Respiratory rate 2022-07-09 16:11:00 13 /min Univ ersity of [facility] Systolic blood 2022-06-19 17:03:00 127 mm[Hg] Univer sity of pressure [facility] Diastolic blood 2022-06-19 17:03:00 65 mm[Hg] Unive rsity of pressure [facility] Heart rate 2022-06-19 17:03:00 60 /min [facility]i ty of [facility] Body height 2022-06-19 17:03:00 167.6 cm [facility] Body weight 2022-06-19 17:03:00 84.823 kg [facility]i [facility] BMI 2022-06-19 17:03:00 30.18 kg/m2 [facility] Oxygen saturation in 2022-06-19 17:03:00 98 /min University of Arterial blood by [place] [facility] tamra Pulse oximetry Branch Systolic blood 2022-05-23 20:55:00 120 mm[Hg] Univer sity of pressure [facility] Diastolic blood 2022-05-23 20:55:00 77 mm[Hg] Unive rsity of pressure [facility] Heart rate 2022-05-23 20:55:00 69 /min Universi ty of [facility] Body height 2022-05-23 20:55:00 167.6 cm [facility] Body weight 2022-05-23 20:55:00 85.73 kg [facility]i [facility] BMI 2022-05-23 20:55:00 30.51 kg/m2 [facility]i ty of [facility] Oxygen saturation in 2022-05-23 20:55:00 98 /min University of Arterial blood by [place] [facility] tamra Pulse oximetry Branch Systolic blood 2022-04-26 04:00:00 126 mm[Hg] Univer sity of pressure [facility] Diastolic blood 2022-04-26 04:00:00 79 mm[Hg] Unive rsity of pressure [facility] Heart rate 2022-04-26 04:00:00 62 /min Universi ty of [facility] Respiratory rate 2022-04-26 04:00:00 18 /min Univ ersity of [facility] Oxygen saturation in 2022-04-26 04:00:00 97 /min University of Arterial blood by [place] [facility] tamra Pulse oximetry Branch Body temperature 2022-04-26 01:26:00 36.5 Holly Univ ersity of [place] [facility] Body height 2022-04-26 01:26:00 167.6 cm [facility]i ty [facility] Body weight 2022-04-26 01:26:00 83.008 kg [facility] BMI 2022-04-26 01:26:00 29.54 kg/m2 [facility] Systolic blood 2022-03-04 21:30:00 101 mm[Hg] Univer sity of pressure [facility] Diastolic blood 2022-03-04 21:30:00 63 mm[Hg] Unive rsity of pressure [facility] Heart rate 2022-03-04 21:30:00 68 /min Universi ty of [facility] Body temperature 2022-03-04 21:30:00 37.11 [facility] Univ ersity of [facility] Body height 2022-03-04 21:30:00 167.6 cm [facility]i ty [facility] Body weight 2022-03-04 21:30:00 84.369 kg [facility]i ty of [facility] BMI 2022-03-04 21:30:00 30.02 kg/m2 [facility] ty [facility] Oxygen saturation in 2022-03-04 21:30:00 98 /min University of Arterial blood by [facility] Pulse oximetry Branch Systolic blood 2022-01-06 15:16:00 116 mm[Hg] Univer sity of pressure [facility] Diastolic blood 2022-01-06 15:16:00 77 mm[Hg] Unive rsity of pressure [facility] Heart rate 2022-01-06 15:16:00 65 /min Universi ty of [facility] Body temperature 2022-01-06 15:16:00 36.72 Holly Univ ersity of [facility] Respiratory rate 2022-01-06 15:16:00 16 /min Univ ersity of [facility] Body height 2022-01-06 15:16:00 167.6 cm [facility]i [facility] Body weight 2022-01-06 15:16:00 83.519 kg [facility] ty [facility] BMI 2022-01-06 15:16:00 29.72 kg/m2 [facility] ty [facility] Oxygen saturation in 2022-01-06 15:16:00 98 /min University of Arterial blood by [facility] Pulse oximetry Branch Systolic blood 2021-12-18 14:24:00 136 mm[Hg] Univer sity of pressure [facility] Diastolic blood 2021-12-18 14:24:00 82 mm[Hg] Unive rsity of pressure [facility] Heart rate 2021-12-18 14:24:00 64 /min [facility] Body weight 2021-12-18 14:24:00 83.462 kg [facility] BMI 2021-12-18 14:24:00 29.70 kg/m2 [facility] Procedures Procedure Date / Time Performing Source Performed Clinician EXTERNAL PROVIDER RECORDS 2022-07-24 Doctor [facility] sity of 05:01:00 Unassigned, No [facility] POCT URINALYSIS W/O SPECIFIC 2022-07-21 Tawanna Galicia Uni versity of GRAVITY 15:52:00 [facility] ESOPHAGOGASTRODUODENOSCOPY 2022-07-09 Ranjith Garcia rsity of 15:45:00 Sherry Rios [facility] EGD (ENDO) 2022-07-09 [facility] of 15:41:59 [facility] EGD (ENDO) 2022-07-09 [facility] of 15:41:59 [facility] PATIENT QUESTIONNAIRE 2022-07-09 [facility] of 05:01:00 Unassigned, No [facility] EXTERNAL PROVIDER RECORDS 2022-06-09 Doctor [facility] sity of 06:01:00 Unassigned, No [facility] EXTERNAL PROVIDER RECORDS 2022-06-09 Doctor [facility] sity of 06:01:00 Unassigned, No [facility] AUTHORIZATION FOR RELEASE OF PHI 2022-06-03 [facility] of 06:01:00 Unassigned, No [facility] CBC (INCLUDES DIFF/PLT)-Q 2022-05-26 Shaniqua Frank [facility] sity of 13:41:00 [facility] CT ABDOMEN PELVIS W CONTRAST 2022-04-26 Shima Dhaliwal Uni versity of 02:47:59 [facility] LIPASE 2022-04-26 Shima Dhaliwal [facility] of 02:25:00 [facility] COMP. METABOLIC PANEL ([id number]) 2022-04-26 Shima Dhaliwal Un iversity of 02:25:00 [facility] CBC WITH DIFF 2022-04-26 Shima Dhaliwal [facility] of 02:25:00 [facility] URINALYSIS 2022-04-26 Shima Dhaliwal [facility] of 02:25:00 [facility] CONSENT/REFUSAL FOR DIAGNOSIS AND 2022-04-26 [facility]3] 01:16:50 Unassigned, No [facility] HB ECG ROUTINE & RHYTHM STRIP 2022-03-04 Shaniqua Frank Un iversity of 22:01:30 [facility] POCT URINALYSIS 2022-01-06 Amelia Montejo [facility] of 15:28:00 [facility] POCT URINALYSIS 2021-12-18 Manolo Bonilla [facility] of 14:30:00 [facility] Encounters Start End Encounter Admission Attending Care Care Encounter Source Date/Time Date/Time Type Type Clinicians Facility Department ID 2021-02-22 Outpatient R MILDRED [facility] KRISTY [id number] Univers 17:41:36 SHERRY Barreto [facility] 2022-11-24 2022-11-24 Outpatient R ZAC [facility] [id number] Univers 09:30:00 09:30:00 SHANIQUA rao [facility] 2022-09-12 2022-09-12 Outpatient R TAWANNA GALICIA [facility] [id number] Univers 14:30:00 14:30:00 TAWANNA GALICIA [facility] 2022-09-05 2022-09-05 Reftao Frank [facility] 1.2.840.114 [id number] Univers 00:00:00 00:00:00 Jinni [id number] it y of [place] [id number] Kishor as LAVERNE?BLEA [id number] Hi joanie [address] MEDICAL OFFICE BUILDING 2022-09-01 2022-09-01 Outpatient R TAWANNA GALICIA [facility] [id number] Univers 10:00:00 10:00:00 TAWANNA GALICIA [facility] 2022-08-12 2022-08-12 Outpatient R TAWANNA GALICIA [facility] [id number] Univers 15:00:00 16:07:49 TAWANNA GALICIA [facility] 2022-08-12 2022-08-12 Ancillary Jessika Del Rio [facility] 1.2.840. [id number] Univers 15:00:00 16:07:49 Visit Tawanna Galicia [id number] [facility] [id number] [id number] [place] dical [facility] [address] [facility] 2022-08-06 2022-08-06 Ancillary Jessika Del Rio [facility] 1.2.840. 114 [id number] Univers 15:00:00 16:26:35 Visit Tawanna Galicia [id number] [facility] [id number] [id number] [place] dic[address] 2022-08-06 2022-08-06 [facility] [id number] Univers 00:00:00 00:00:00 Manolo HEALTH [id number] it y [facility] [id number] Kishor as L[place]ERNE?BLEA [id number] [address] OFFICE [facility] 2022-08-04 2022-08-04 [facility] [id number] Univers 15:30:00 15:35:15 SHANIQUA itkam [facility] 2022-08-04 2022-08-04 Office [facility] 1.2.840.114 [id number] Univers 15:30:00 15:35:15 Visit [facility] [id number] it y of [address] [id number] Kishor as LAVERNE?BLEA [id number] [address] OFFICE [facility] 2022-08-04 2022-08-04 [facility] [id number] Univers 00:00:00 00:00:00 SHANIQUA itkam [facility] 2022-07-30 2022-07-30 Ancillary Jessika Del Rio [facility] 1.2.840. 114 [id number] Univers 14:00:00 15:21:36 Visit Jaylen Pierre KIRSTEN [id number] [id number] [id number] Hi dical NAL [address] [facility] 2022-07-24 2022-07-24 Orders Doctor KANIKA [id number] Univers 00:00:00 00:00:00 Only Unassigned, JOVANNA [id number] [facility] [id number] Kishor as [id number] [address] 2022-07-21 2022-07-21 Outpatient R TAWANNA GALICIA [facility] [id number] Univers 10:30:00 11:37:31 TAWANNA GALICIA [facility] 2022-07-21 2022-07-21 Office [facility] 1.2.840.114 [id number] Univers 10:30:00 11:37:31 Visit Tawanna CURTIS [id number] i ty [id number] [id number] Hi dical NAL 0[address] [facility] 2022-07-17 2022-07-17 [facility] 1.2.840.114 [id number] Univers 00:00:00 00:00:00 [facility] [id number] it y of [address] 4.2.7.2.686 Kishor as LAVERNE?BLEA [id number] Hi dical KNEY 044 [facility] OFFICE [facility] 2022-07-11 2022-07-11 Outpatient R ZAC [facility] [id number] Univers 00:00:00 00:00:00 SHANIQUA ity [facility] 2022-07-09 2022-07-09 Outpatient R [facility] [id number] Univers 10:07:00 11:58:00 SHERRY Barreto [facility] 2022-07-09 2022-07-09 [facility] 1.2.840.114 1 [id number] Univers 10:07:00 11:58:00 Encounter Sherry barreto 350.1.13.10 ity of [place].2.7.2.686 [place] SUR[place]ICAL [id number] [facility] [address] 2022-07-09 2022-07-09 [facility] 1.2.840.114 10 [id number] Univers 11:10:00 11:43:00 e, Sherry ROMEROTON 350.1.13.10 ity [facility] 4.2.7.2.686 [place]ICAL [id number] [facility] [address] 2022-07-09 2022-07-09 Anesthesia Basilio Gomez [facility] 1.2.8 40.114 [id number] Univers 10:55:00 11:16:00 Event LomeliDeshawnlencho Gomez [place] 350.1.13.10 ity [facility] 4.2.7.2.686 [place]ICAL [id number] [facility] [address] 2022-07-09 2022-07-09 Orders Doctor KANIKA 1.2.840.114 [id number] Univers 00:00:00 00:00:00 Only Unassigned, JOVANNA 350.1.13.10 ity of [place] [facility] 4.2.7.2.686 Kishor as [phone] [place] [address] [address] 2022-07-07 2022-07-07 Telephone Zac [facility] 1.2.344.621 [id number] Univers 00:00:00 00:00:00 Shaniqua CALVO 350.1.13.10 it y [facility] 4.2.7.2.686 Kishor as LAVERNE?BLEA [phone] Hi joanie [address] MEDICAL OFFICE BUILDING 2022-06-19 2022-06-19 Outpatient R ZAC [facility] [id number] Univers 11:42:13 23:59:00 SHANIQUA rao of [facility] 2022-06-19 2022-06-19 Design Engineer Lab, Ang - Db [facility] 1.2.840.1 14 [id number] Univers 11:45:00 12:00:00 Visit Shaniqua Frank 350.1.13.10 [address]y of [place] 4.2.7.2.686 Kishor as LAVERNE?BLEA [phone] [facility] [address] MEDICAL OFFICE [facility] 2022-06-19 2022-06-19 Office Zac [facility] 1.2.840.114 [id number] Univers 11:00:00 11:39:06 Visit Shaniqua HEALTH 350.1.13.10 it y [facility] 4.2.7.2.686 Kishor as LAVERNE?BLEA [id number] [address] MEDICAL OFFICE [facility] 2022-06-03 2022-06-03 Orders Doctor KANIKA 1.2.840.114 [id number] Univers 00:00:00 00:00:00 Only Unassigned, JOVANNA 350.1.13.10 ity of [place] [facility] 4.2.7.2.686 Kishor as [id number] [address] 2022-05-28 2022-05-28 Patient Doctor [facility] 1.2.840.114 [id number] Univers 00:00:00 00:00:00 Secure Msg Unassigned, HEALTH 350.1.13.10 ity of [place] [address] 4.2.7.2.686 Kishor as LAVERNE?BLEA [id number] [address] OFFICE [facility] 2022-05-26 2022-05-26 Orders KANIKA Frank 1.2.840.114 [id number] Univers 00:00:00 00:00:00 Only Shaniqua JOVANNA 350.1.13.10 it y of HOSPITAL 4.2.7.2.686 Kishor as [phone] [address] 2022-05-23 2022-05-23 Outpatient R ZAC [facility] [id number] Univers 14:30:00 15:34:01 SHANIQUA ity of [facility] 2022-05-23 2022-05-23 Office Zac [facility] 1.2.840.114 [id number] Univers 14:30:00 15:34:01 Visit Shaniqua HEALTH 350.1.13.10 it y of [facility] 4.2.7.2.686 Kishor as LAVERNE?BLEA [id number] [address] OFFICE [facility] 2022-05-16 2022-05-16 Nika [facility] 1.2.840.114 [id number] Univers 00:00:00 00:00:00 Shaniqua HEALTH 350.1.13.10 it y of [place] 4.2.7.2.686 Kishor as LAVERNE?BLEA [id number] [address] 2022-04-25 2022-04-25 Emergency X [facility] ERT [id number] Univers 19:24:00 23:10:00 [facility] 2022-04-25 2022-04-25 Emergency [facility] 1.2.241.291 [id number] Univers 19:24:00 23:10:00 Shima S [facility] 350.1.13.10 i ty of [place] 4.2.7.2.686 [place] [id number] [address] 2022-04-03 2022-04-03 Nika [facility] 1.2.840.114 [id number] Univers 00:00:00 00:00:00 Pavan HEALTH 350.1.13.10 i ty of [place] 4.2.7.2.686 Kishor as LAVERNE?BLEA [phone] [facility] 370 [facility] 2022-04-03 2022-04-03 Nika [facility] 1.2.840.114 [id number] Univers 00:00:00 00:00:00 Manolo HEALTH 350.1.13.10 it y of [place] 4.2.7.2.686 Kishor as LAVERNE?BLEA [id number] [address] 2022-03-17 2022-03-17 Outpatient Ranjith FRANK [facility] [id number] Univers 15:44:04 23:59:00 SHANIQUA rao [facility] 2022-03-12 2022-03-12 Outpatient R CHAD [facility] [id number] Univers 12:15:00 12:15:00 MANOLO rao [facility] 2022-03-10 2022-03-10 Nika [facility] 1.2.840.114 [id number] Univers 00:00:00 00:00:00 Manolo HEALTH 350.1.13.10 it y of [place] 4.2.7.2.686 Kishor as LAVERNE?BLEA [id number] [address] OFFICE [facility] 2022-03-04 2022-03-04 [facility] [id number] Univers 15:00:00 16:19:06 SHANIQUA ity of [facility] 2022-03-04 2022-03-04 Office [facility] 1.2.840.114 [id number] Univers 15:00:00 16:19:06 Visit [facility] 350.1.13.10 it y of [place] 4.2.7.2.686 Kishor as LAVERNE?BLEA [id number] [address] OFFICE [facility] 2022-02-07 2022-02-07 Nika [facility] 1.2.840.114 [id number] Univers 00:00:00 00:00:00 Viola HEALTH 350.1.13.10 it y of [place] 4.2.7.2.686 Kishor as LAVERNE?BLEA [id number] [address] OFFICE [facility] 2022-01-23 2022-01-24 Inpatient ISSA Watters, [facility] MEDI.01 [id number] [facility] 05:57:00 14:01:[address] 2022-01-09 2022-01-09 Telephone [facility] 1.2.098.208 [id number] 2961 [facility] 00:00:00 00:00:00 Shaniqua HEALTH 350.1.13.10 it y of [place] 4.2.7.2.686 Kishor as LAVERNE?BLEA [phone] [facility] [address] MEDICAL OFFICE [facility] 2022-01-06 2022-01-06 Amelia Lancaster [facility] 1.2.840.114 [id number] Univers 10:20:00 10:40:00 Care Pavan Awan HEALTH 350.1.13.10 ity of [place] 4.2.7.2.686 Kishor as LAVERNE?BLEA [phone] Hi joanie PRATER 370 [facility] OFFICE [facility] 2022-01-06 2022-01-06 Outpatient Ranjith MONTEJO [facility] [id number] Univers 10:20:00 10:20:00 AMELIATAE rao [facility] 2021-12-25 2021-12-25 Nika [facility] 1.2.840.114 [id number] Univers 00:00:00 00:00:00 Shaniqua HEALTH 350.1.13.10 it y of [place] 4.2.7.2.686 Kishor as LAVERNE?BLEA [phone] [address] OFFICE [facility] 2021-12-24 2021-12-24 [facility] 1.2.840.114 [id number] Univers 00:00:00 00:00:00 Manolo HEALTH 350.1.13.10 it y of [facility] 4.2.7.2.686 Kishor as LAVERNE?BLEA [phone] [address] OFFICE [facility] 2021-12-18 2021-12-18 Outpatient R [facility] [id number] Univers 10:30:30 23:59:00 MANOLO rao [facility] 2021-12-18 2021-12-18 [facility] 1.2.840.114 [id number] Univers 10:30:30 23:59:00 Encounter Manolo CURTIS 350.1.13.10 ity [facility] 4.2.7.2.686 [place] [facility] [phone] [facility] [address] [place] [address] 2021-12-18 2021-12-18 Office [facility] 1.2.840.114 [id number] Univers 09:15:00 10:04:33 Visit Manolo [facility] 350.1.13.10 it y of [facility] 4.2.7.2.686 Kishor as LAVERNE?BLEA [phone] Hi ayaka[address] OFFICE [facility] 2021-12-18 2021-12-18 Outpatient Ranjith BONILLA [facility] [id number] Univers 09:15:00 10:04:33 MANOLO ity of [facility] 2021-12-18 2021-12-18 Orders Doctor KANIKA 1.2.840.114 [id number] Univers 00:00:00 00:00:00 Only Unassigned, JOVANNA 350.1.13.10 ity of [place] [facility] 4.2.7.2.686 Kishor as [id number] [facility] [address] 2021-11-25 2021-11-25 Reftao [facility]MOUNT[facility] 1.2.840.114 [id number] Univers 00:00:00 00:00:00 Manolo HEALTH 350.1.13.10 it y of [place] 4.2.7.2.686 Kishor as LAVERNE?BLEA [phone] [facility] [address] MEDICAL OFFICE [facility] 2021-11-16 2021-11-16 Outpatient R [facility] [id number] Univers 13:34:42 23:59:00 PAVAN maira o f [facility] 2021-11-16 2021-11-16 [facility] 1.2.470.664 [id number] Univers 13:34:42 23:59:00 Encounter Pavan HEALTH 350.1.13.10 ity of [place] 4.2.7.2.686 Kishor as LAVERNE?BLEA [phone] [facility] [address] MEDICAL OFFICE [facility] 2021-11-16 2021-11-16 Urgent [facility] 1.2.840.114 [id number] Univers 13:20:00 13:40:00 Care Pavan HEALTH 350.1.13.10 i ty of [place] 4.2.7.2.686 Kishor as LAVERNE?BLEA [phone] Hi dical [facility] [address] MEDICAL OFFICE BUILDING 2021-11-10 2021-11-10 Telephone KANIKA Hector 1.2.148.353 [id number] Univers 00:00:00 00:00:00 Zoraida NUGENT 350.1.13.10 i ty of [facility] 4.2.7.2.686 Kishor as [id number] [facility] [address] 2021-11-09 2021-11-09 Laboratory Only, Ang Db Test [facility] 1.2.8 40.114 [id number] Univers 09:00:00 09:15:00 Only Crystal Lim [facility] 350.1.13.10 ity of [place] 4.2.7.2.686 Kishor as LAVERNE?BLEA [id number] [facility] [address] MEDICAL OFFICE BUILDING 2021-11-09 2021-11-09 Outpatient [facility] [id number] Univers 09:00:00 09:00:00 CRYSTAL alcala [facility] 2021-11-09 2021-11-09 Outpatient [facility] [id number] Univers 09:00:00 09:00:00 CRYSTAL alcala [facility] 2021-11-08 2021-11-08 Outpatient R [facility] [id number] Univers 09:00:00 09:00:00 ity [facility] 2021-11-08 2021-11-08 Outpatient R [facility] [id number] Univers 09:00:00 09:00:00 ity [facility] 2021-10-24 2021-10-24 Outpatient R [facility] OPH [id number] Univers 06:48:00 09:02:00 DEBI itkam [facility] 2021-10-24 2021-10-24 Hospital [facility] 1.2.840.114 [id number] Univers 06:48:00 09:02:00 Encounter Debi CURTIS 350.1.13.10 ity of [place] 4.2.7.2.686 [place] SURGICAL [id number] [facility] [address] 2021-10-24 2021-10-24 Surgery [facility], [facility] 1.2.840.114 [id number] Univers 07:55:00 08:30:00 Debi CURTIS 350.1.13.10 i ty of [place] 4.2.7.2.686 [place] SUR[place]ICAL [id number] [facility] [address] 2021-10-22 2021-10-22 Laboratory Only, Adc Test [facility] 1.2.840. 114 [id number] Univers 10:00:00 10:15:00 Only Debi Lopez 350.1.13.10 ity of [place] 4.2.7.2.686 [place] CAMPUS [id number] [facility] [address] 2021-10-22 2021-10-22 Outpatient R ALMAZ [facility] [id number] Univers 10:00:00 10:00:00 DEBI ity of [facility] 2021-10-22 2021-10-22 Orders Doctor BOUDREAUX 1.2.840.114 [id number] Univers 00:00:00 00:00:00 Only Unassigned, JOVANNA 350.1.13.10 ity of [place] HOSPITAL 4.2.7.2.686 Kishor as [id number] [address] 2021-10-03 2021-10-03 Outpatient R EMI [facility] OPH [id number] Univers 08:20:00 10:38:00 DEBI ity of [facility] 2021-10-03 2021-10-03 [facility] 1.2.840.114 [id number] Univers 08:20:00 10:38:00 Encounter Debi CURTIS 350.1.13.10 ity of [place] 4.2.7.2.686 [place]ICAL [id number] [facility] [address] 2021-10-03 2021-10-03 Surgery [facility] 1.2.840.114 [id number] Univers 09:47:00 10:26:00 Debi CURTIS 350.1.13.10 i ty of [place] 4.2.7.2.686 [place] SURGICAL [id number] [facility] [address] 2021-10-03 2021-10-03 Orders Doctor BOUDREAUX 1.2.840.114 [id number] Univers 00:00:00 00:00:00 Only Unassigned, JOVANNA 350.1.13.10 ity of [place] HOSPITAL 4.2.7.2.686 Kishor as [id number] [facility] [address] 2021-10-01 2021-10-01 Laboratory Only, Adc Test [facility] 1.2.840. 114 [id number] Univers 11:15:00 11:30:00 Only Debi [place] 350.1.1 3.10 ity [facility] 4.2.7.2.686 [place] [id number] [facility] [address] 2021-10-01 2021-10-01 Outpatient R EMI [facility] [id number] Univers 11:15:00 11:15:00 DEBI rao [facility] 2021-09-24 2021-09-24 Design Engineer Alvino, Adc Lab Main [facility] 1.2.8 40.114 [id number] Univers 11:45:00 12:00:00 Visit Debi [place] 350.1.1 3.10 ity of [place] 4.2.7.2.686 [place] [facility] [id number] [facility] 353 [facility] 2021-09-24 2021-09-24 Outpatient R EMI [facility] [id number] Univers 11:45:00 11:45:00 DEBI rao [facility] 2021-09-24 2021-09-24 Orders Doctor KANIKA 1.2.840.114 [id number] Univers 00:00:00 00:00:00 Only Unassigned, JOVANNA 350.1.13.10 [facility] 4.2.7.2.686 Kishor as [id number] [address] 2021-09-04 2021-09-04 Office [facility] 1.2.840.114 [id number] Univers 14:30:00 14:45:00 Visit [facility] 350.1.13.10 it y of [facility] 4.2.7.2.686 Kishor as LAVERNE?BLEA [phone] Hi dical EY [address] MEDICAL OFFICE BUILDING 2021-09-04 2021-09-04 Outpatient Ranjith BONILLA [facility] [id number] Univers 14:30:00 14:30:00 MANOLO rao [facility] 2021-09-04 2021-09-04 Outpatient Ranjith BONILLA [facility] [id number] Univers 14:30:00 14:30:00 MANOLO rao [facility] 2021-09-04 2021-09-04 Outpatient Ranjith RICHARDSON [facility] [id number] Univers 08:00:00 08:00:00 CHANA rao [facility] 2021-07-25 2021-07-25 Outpatient R ZAC, [facility] [id number] Univers 10:30:00 11:50:25 SHANIQUA rao [facility] 2021-07-25 2021-07-25 Office [facility] 1.2.840.114 [id number] Univers 10:30:00 11:50:25 Visit Shaniqua HEALTH 350.1.13.10 it y of [place] 4.2.7.2.686 Kishor as LAVERNE?BLEA [id number] [address] OFFICE [facility] 2021-07-22 2021-07-22 Telephone [facility] 1.2.730.831 [id number] Univers 00:00:00 00:00:00 Shaniqua HEALTH 350.1.13.10 it y of [place] 4.2.7.2.686 Kishor as LAVERNE?BLEA [id number] [address] MEDICAL OFFICE [facility] 2021-07-02 2021-07-02 Outpatient R ZAC, [facility] [id number] Univers 15:00:00 15:44:15 SHANIQUA rao [facility] 2021-07-02 2021-07-02 Office [facility] 1.2.840.114 [id number] Univers 15:00:00 15:44:15 Visit Shaniqua HEALTH 350.1.13.10 it y of [place] 4.2.7.2.686 Kishor as LAVERNE?BLEA [id number] [address] OFFICE [facility] 2021-07-02 2021-07-02 Outpatient R ZAC, [facility] [id number] Univers 15:00:00 15:44:15 SHANIQUA rao [facility] 2021-06-13 2021-06-13 Design Engineer Lab, Ang - Db [facility] 1.2.840.1 14 [id number] Univers 16:30:00 16:45:00 Visit Shaniqua Frank HEALTH 350.1.13.10 ity of [place] 4.2.7.2.686 Kishor as LAVERNE?BLEA [id number] Hi dicsupriya [place] 353 [facility] OFFICE [facility] 2021-06-13 2021-06-13 Outpatient R ZAC [facility] [id number] Univers 15:30:00 16:28:58 SHANIQUA rao [facility] 2021-06-13 2021-06-13 Office [facility] 1.2.840.114 [id number] Univers 15:30:00 16:28:58 Visit [facility] 350.1.13.10 it y [address] 4.2.7.2.686 Kishor as LAVERNE?BLEA [phone] Hi dicsupriya [place] 044 [facility] OFFICE [facility] 2021-06-13 2021-06-13 Outpatient R ZAC [facility] [id number] Univers 15:30:00 16:28:58 [facility] 2021-06-13 2021-06-13 Nika Bonilla [facility] 1.2.840.114 [id number] Univers 00:00:00 00:00:00 Manolo CURTIS 350.1.13.10 i tami woody [place] 4.2.7.2.686 [place] [phone] Hi joanie DOUGLASS 044 [facility] 2021-06-04 2021-06-04 Outpatient Reserach_Re [address] 02:20:00 02:20:00 [facility] 2021-06-03 2021-06-03 Amelia Lancaster [facility] .2.840.114 9 [id number] Univers 13:00:00 13:20:00 Care Unknown, [facility] 350.1.13.10 it[facility]itaDIGN[facility] 4.2.7.2.686 Kishor as LAVERNE?BLEA [phone] Hi joanie [place] 370 [facility] OFFICE [facility] 2021-06-03 2021-06-03 Outpatient Ranjith MONTEJO [facility] [id number] Univers 13:00:00 13:00:00 AMELIA rao [facility] 2021-05-28 2021-05-28 Urgent Trina Baez [facility] 1.2.840.114 [id number] Univers 20:40:00 20:40:00 Care Unknown, Attending HEALTH 350.1.13.10 ity of [place] 4.2.7.2.686 [place] LAVERNE?BLEA [phone] Hi dical KNEY [address] MEDICAL OFFICE BUILDING 2021-05-28 2021-05-28 Outpatient R BRIANA, [facility] [id number] Univers 20:40:00 14:59:10 RANIA ity of [facility] 2021-05-27 2021-05-27 Hospital Radiology [facility] 1.2.840.114 [id number] Univers 07:39:48 23:59:00 Encounter [place] 350.1.13.10 ity of [facility] 4.2.7.2.686 [facility] [id number] [facility] [address] 2021-05-27 2021-05-27 Outpatient R RADIOLOGY [facility] [id number] Univers 07:39:15 23:59:00 ity of [facility] 2021-05-27 2021-05-27 Hospital Radiology [facility] 1.2.840.114 [id number] Univers 07:39:15 23:59:00 Encounter KIRSTEN 350.1.13.10 ity of [facility] 4.2.7.2.686 [facility] [id number] [facility] [address] 2021-05-23 2021-05-23 Outpatient R RADIOLOGY [facility] [id number] Univers 10:42:02 23:59:00 ity of [facility] 2021-05-23 2021-05-23 Hospital Radiology [facility] 1.2.840.114 [id number] Univers 10:42:02 23:59:00 Encounter KIRSTEN 350.1.13.10 ity of [place] 4.2.7.2.686 [facility] [id number] [facility] [address] 2021-05-06 2021-05-06 Nika Bonilla, [facility] 1.2.840.114 [id number] Univers 00:00:00 00:00:00 Manolo CURTIS 350.1.13.10 i ty of [place] 4.2.7.2.686 [facility] PROFESSIO [id number] Me dical NAL [address] BUILDING 2021-05-01 2021-05-01 Emergency X Janae LYNCH [facility] ERT [id number] Univers 11:31:00 15:34:00 ity of [facility] 2021-05-01 2021-05-01 Emergency Janae Lynch [facility] 1.2.840.114 [id number] Univers 11:31:00 15:34:00 Honey CURTIS 350.1.13.10 i ty of [place] 4.2.7.2.[place] [id number] [address] 2021-04-11 2021-04-11 Reftao [facility] 1.2.840.114 [id number] Univers 00:00:00 00:00:00 Manolo CURTIS 350.1.13.10 i ty of [place] 4.2.7.2.686 [place] [id number] Hi dical NAL 044 [facility] 2021-03-28 2021-03-28 Outpatient Ranjith MEJIA [facility] [id number] Univers 14:38:41 23:59:00 MIKIE [facility] 2021-03-28 2021-03-28 Outpatient [facility] [id number] Univers 14:38:41 23:59:00 MIKIE [facility] 2021-03-28 2021-03-28 [facility] 1.2.840.114 [id number] Univers 14:38:41 23:59:00 Encounter [facility] HEALTH 350.1.13.10 ity of [place] 4.2.7.2.686 Kishor as LAVERNE?BLEA [phone] Hi ayakasupriya ST[place] [address] MEDICAL OFFICE [facility] 2021-03-28 2021-03-28 Office [facility] 1.2.840.114 [id number] Univers 14:20:56 15:51:03 Visit Mikie S HEALTH 350.1.13.10 it y of [place] 4.2.7.2.686 Kishor as LAVERNE?BLEA [id number] Hi ayakasupriya ST[place] [address] MEDICAL OFFICE [facility] 2021-03-27 2021-03-27 Outpatient Ranjith [facility] [id number] Univers 16:00:00 16:00:00 MIKIE ity of [facility] 2021-03-27 2021-03-27 Outpatient R LV [facility] [id number] Univers 11:00:00 11:24:00 PAVAN carynkam o f [facility] 2021-03-27 2021-03-27 Urgent Amelia Montejo [facility] 1.2.840.114 [id number] Univers 10:57:55 11:24:00 Care LvPavan [facility] 350.1.13.10 ity of [place] 4.2.7.2.686 Kishor as LAVERNE?BLEA [phone] Hi joanie PRATEREY [address] MEDICAL OFFICE BU[facility]ING 2021-02-22 2021-02-22 Orders Doctor KANIKA 1.2.840.114 [id number] Univers 00:00:00 00:00:00 Only Unassigned, JOVANNA 350.1.13.10 ity of [place] [facility] 4.2.7.2.686 Kishor as [phone] [facility] [address] 2020-12-13 2020-12-13 Outpatient R BRIANA [facility] [id number] Univers 18:40:00 18:40:00 TRINA itkam [facility] 2020-12-13 2020-12-13 Orders Doctor KANIKA 1.2.840.114 [id number] Univers 00:00:00 00:00:00 Only Unassigned, JOVANNA 350.1.13.10 ity of [place] [facility] 4.2.7.2.686 Kishor as [phone] [facility] [address] 2020-12-03 2020-12-03 [facility] 1.2.840.114 [id number] Univers 00:00:00 00:00:00 Manolo Curtis 350.1.13.10 i [place] [id number] Hi joanie douglass [address] 2020-08-09 2020-08-09 Telephone Nurse, Tray Quezada 1.2.840.114 [id number] Univers 00:00:00 00:00:00 Urgent Pediatric 350.1.13.10 [place] [phone] [facility] Primary [address] [facility] 2020-08-01 2020-08-01 Urgent Provider, Martín [facility] 1.2.840.114 [id number] Univers 13:11:14 13:31:14 Care Sunita Del Rosario 350.1.13.10 ity of [place] 4.2.7.2.686 Kishor as [facility] [phone] Hi dical nal [address] Building One 2020-08-01 2020-08-01 Outpatient R MIGUEL ÁNGEL [facility] [id number] Univers 13:20:00 13:20:00 SUNITA rao [facility] 2020-07-04 2020-07-04 Patient Jairon [facility] 1.2.840.114 [id number] Univers 00:00:00 00:00:00 Outreach [facility] 350.1.13.10 i ty of [facility] 4[place]2.7.2.[place] [phone] Hi dicks [address] 2020-04-18 2020-04-18 Hospital [facility] 1.2.840.114 [id number] Univers 15:30:00 23:59:00 Encounter Manolo Curtis 350.1.13.10 [place] [phone] [facility] [address] 2020-04-18 2020-04-18 [facility] [id number] Univers 00:00:00 00:00:00 MANOLO rao [facility] 2020-04-18 2020-04-18 Orders Doctor KANIKA 1.2.840.114 [id number] Univers 00:00:00 00:00:00 Only Unassigned, JOVANNA 350.1.13.10 ity of [place] [facility] 4.2.7.2.686 Kishor as [phone] [facility] [address] 2020-04-11 2020-04-11 Office [facility] 1.2.840.114 [id number] Univers 15:04:06 15:40:12 Visit Manolo [facility] 350.1.13.10 it y of [place] 4.2.7.2.686 [place]ishor as Professio [phone] [facility] [address] Office [facility] One 2020-04-11 2020-04-11 Outpatient R CHAD [facility] [id number] Univers 15:15:00 15:15:00 MANOLO itkam of [facility] 2020-04-10 2020-04-10 Telephone Chad [facility] [id number] Univers 00:00:00 00:00:00 [facility] 350.1.13.10 it y of [place] 4.2.7.2.686 [place]ishor as Professio [phone] [facility] [address] Office [facility] 2020-04-05 2020-04-05 Hospital [facility] 1.2.840.114 [id number] Univers 12:41:08 23:59:00 Encounter Sunita Olivera Kirsten 350.1.13.10 it[place] [phone] [facility] [address] 2020-04-05 2020-04-05 Design Engineer Alvino, Adc Lab Main [facility] 1.2.8 40.114 [id number] Univers 12:56:32 13:11:32 Visit Miguel ÁngelSunita [place] 350.1.13.10 ity of [place] [phone] [facility] 353 [facility] 2020-04-05 2020-04-05 Urgent Provider, [facility] Care [facility] 1.2.840.114 [id number] Univers 11:30:19 13:07:17 Care Miguel ÁngelJosSunita A Health 350.1.13.10 ity of [place] 4.2.7.2.686 [place] Professio [phone] [facility] [address] Office [facility] 2020-04-05 2020-04-05 Outpatient R MIGUEL ÁNGEL [facility] [id number] Univers 11:40:00 11:40:00 SUNITA itkam [facility] 2020-03-07 2020-03-07 Office [facility] 1.2.840.114 [id number] Univers 12:35:02 12:58:31 Visit [facility] 350.1.13.10 it y of [place] 4.2.7.2.686 [place] Professio [phone] [facility] [address] Office [facility] One 2020-03-07 2020-03-07 Outpatient R CHAD [facility] [id number] Univers 12:45:00 12:45:00 MANOLO ity of [facility] 2020-01-25 2020-01-25 [facility] 1.2.840.114 [id number] Univers 07:02:00 09:20:00 Encounter Sherry barreto 350.1.13.10 [place] of [place] [phone] [address] 2020-01-24 2020-01-[address] [facility] [id number] Univers 13:15:00 13:15:00 SHERRY Barreto o f [facility] 2020-01-24 2020-01-24 Laboratory Only, Adc Test [facility] 1.2.840. 114 [id number] Univers 12:26:00 12:41:00 Only Sherry Garcia 350.1.1 3.10 ity of [place] [phone] [facility] [address] 2020-01-24 2020-01-24 Orders Doctor KANIKA 1.2.840.114 [id number] Univers 00:00:00 00:00:00 Only Unassigned, JOVANNA 350.1.13.10 ity of [place] [facility] 4.2.7.2.686 Kishor as [phone] [facility] [address] 2020-01-10 2020-01-10 Telephone [facility] 1.2.937.137 [id number] Univers 00:00:00 00:00:00 Ma[facility] 350.1.13.10 it y of [place] 4.2.7.2.686 [place] Professio [phone] [facility] [address] Office [facility] One 2020-01-05 2020-01-05 Telephone [facility] 1.2.669.865 [id number] Univers 00:00:00 00:00:00 Manolo Curtis 350.1.13.10 i ty of [place] [phone] Hi dical nal 044 [facility] 2020-01-04 2020-01-04 Hospital Chad [facility] 1.2.840.114 [id number] Univers 10:48:26 23:59:00 Encounter Manolo Curtis 350.1.13.10 ity of [place] [phone] [facility] [address] 2020-01-04 2020-01-04 [facility] [id number] Univers 00:00:00 00:00:00 MANOLO carynkam [facility] 2020-01-03 2020-01-03 Design Engineer Lab, Adc Fam Pob I [facility] 1.. 840.114 [id number] Univers 08:41:17 09:10:51 Visit Manolo Bonilla [facility] 350.1.13.10 ity of [place] 4.2.7.2.686 [place] as Professio [phone] [address] Office Building One 2020-01-03 2020-01-03 Outpatient [facility] [id number] Univers 09:00:00 09:00:00 MANOLO rao [facility] 2020-01-03 2020-01-03 Telephone [facility] 1.2.915.470 [id number] Univers 00:00:00 00:00:00 Manolo Curtis 350.1.13.10 i ty of [place] [phone] Hi dical nal [address] [place] [address] 2020-01-03 2020-01-03 Orders Doctor KANIKA 1.2.840.114 [id number] Univers 00:00:00 00:00:00 Only Unassigned, JOVANNA 350.1.13.10 ity of [place] [facility] 4.2.7.2.686 Kishor as [phone] [facility] [address] 2019-11-30 2019-11-30 Design Engineer 2, Adc Lab [facility] 1.2.840.114 [id number] Univers 09:56:40 10:11:40 Visit Manolo Bonilla 350.1.13.10 ity of [place] [phone] [facility] 353 [facility] 2019-11-30 2019-11-30 Office [facility] 1.2.840.114 [id number] Univers 08:54:55 09:24:55 Visit Manolo Curtis 350.1.13.10 i ty of [place] [phone] [facility] 044 [facility] 2019-11-30 2019-11-30 Outpatient Ranjith BONILLA [facility] [id number] Univers 09:00:00 09:00:00 MANOLO rao [facility] 2019-11-28 2019-11-28 Outpatient Ranjith BONILLA [facility] [id number] Univers 07:30:00 07:30:00 MANOLO rao [facility] 2019-11-24 2019-11-24 Refill [facility] 1.2.840.114 [id number] Univers 00:00:00 00:00:00 [facility] 350.1.13.10 it y of [place] 4.2.7.2.686 [place] Professio [phone] [address] One 2019-11-10 2019-11-10 Telephone Chad [facility] 1.2.191.635 [id number] Univers 00:00:00 00:00:00 [facility] 350.1.13.10 it y of [place] 4.2.7.2.686 [place] Professio [phone] [address] One 2019-10-03 2019-10-03 Telephone [facility] 1.2.531.813 [id number] Univers 00:00:00 00:00:00 Man[facility] 350.1.13.10 it y of [place] 4.2.7.2.686 [place] Professio [phone] [address] One 2019-10-01 2019-10-01 Telephone Jessica BOUDREAUX 1.2.840.114 [id number] Univers 00:00:00 00:00:00 Cece hudson 350.1.13.10 ity of HOSPITAL 4.2.7.2.686 [place] as [phone] [address] 2019-09-29 2019-09-29 Urgent Pob1, Acute Care Clinic [facility] 1. 2.840.114 [id number] Univers 12:51:21 13:56:25 Care Sunita Del [facility] 350.1.13.10 ity of [place] 4.2.7.2.686 [place] Professio [phone] [address] Office Building One 2019-09-29 2019-09-29 Outpatient R [facility] [id number] Univers 13:00:00 13:00:00 ity of [facility] 2019-07-17 2019-07-17 Refill Doctor [facility] 1.2.840.114 [id number] Univers 00:00:00 00:00:00 Unassigned, Health 350.1.13.10 ity of [place] 4.2.7.2.686 [place] as Professio [phone] [address] Office [facility] One 2019-07-14 2019-07-14 Refill Doctor [facility] 1.2.840.114 [id number] Univers 00:00:00 00:00:00 Unassigned, Health 350.1.13.10 ity of [place] 4.2.7.2.686 [place] as Professio [phone] [address] Office [facility] One 2019-07-11 2019-07-11 Refill Chad, [facility] 1.2.840.114 [id number] Univers 00:00:00 00:00:00 Manolo [facility] 350.1.13.10 it y of [place] 4.2.7.2.686 [place] Professio [phone] [address] Office Building One 2019-06-07 2019-06-09 Office Zac, [facility] 1.2.840.114 [id number] Univers 10:30:48 17:59:00 Visit Shaniqua Health 350.1.13.10 it y of [place] 4.2.7.2.686 [place]ish[place] as Professio [phone] Hi dicsupriya nal [address] Office Building One 2018-12-29 2018-12-29 Office Chad [facility] 1.2.840.114 [id number] Univers 07:07:21 07:22:21 Visit Manolo Calvo 350.1.13.10 it y of [place] 4.2.7.2.686 [place] as Professio [phone] [facility] nal [address] Office Building One 2018-11-24 2018-12-01 Office [facility] 1.2.840.114 [id number] Univers 07:23:25 08:49:59 Visit Manolo [facility] 350.1.13.10 it y of [place] 4.2.7.2.686 [place] as Professio [phone] [facility] [address] Office [facility] One 2018-11-24 2018-11-24 [facility] 1.2.840.114 [id number] Univers 08:17:25 23:59:00 Encounter Manolo Curtis 350.1.13.10 ity of [place] [phone] [facility] [address] 2018-11-24 2018-11-24 Orders Doctor KANIKA 1.2.840.114 [id number] Univers 00:00:00 00:00:00 Only Unassigned, JOVANNA 350.1.13.10 ity of [place] [facility] 4.2.7.2.686 Kishor as [phone] [facility] [address] Results Test Description Test Time Test Comments Results Result Comments Source POCT URINALYSIS W/O SPECIFIC GRAVITY 2022-07-21 15:52:00 Test Item Value Reference Range Interpretation Comme nts POCT PH U (test code = 3254) 5 mg/dl 5-8 POCT U LEUK EST (test code = 3263) negative Negative - Negative POCT U NIT (test code = 3262) negative Negative - Negative POCT U PROT (test code = 3259) negative Negative - Negative POCT U GLU (test code = 3256) normal Negative - Negative POCT U KETONE (test code = 3258) negative Negative - Negative POCT U BLD (test code = 3257) negative Negative - Negative [facility] SPECIFIC [id number] 15:52:00 Test Item Value Reference Range Interpretation Comments POCT PH U (test code = 3254) 5 mg/dl 5-8 POCT U LEUK EST (test code = negative Negative - Negative 3263) POCT U NIT (test code = 3262) negative Negative - Negative POCT U PROT (test code = 3259) negative Negative - Negative POCT U GLU (test code = 3256) normal Negative - Negative POCT U KETONE (test code = 3258) negative Negative - Negative POCT U BLD (test code = 3257) negative Negative - Negative [facility] W/O SPECIFIC [id number] 15:52:00 Test Item Value Reference Range Interpretation Comments POCT PH U (test code = 3254) 5 mg/dl 5-8 POCT U LEUK EST (test code = negative Negative - Negative 3263) POCT U NIT (test code = 3262) negative Negative - Negative POCT U PROT (test code = 3259) negative Negative - Negative POCT U GLU (test code = 3256) normal Negative - Negative POCT U KETONE (test code = 3258) negative Negative - Negative POCT U BLD (test code = 3257) negative Negative - Negative [facility] (INCLUDES DIFF/PLT)-[id number] 23:00:00 Test Item Value Reference Range Interpretation Comments WHITE BLOOD CELL 5.2 See_Comment [Automated COUNT-Q (test message] The s multiBIND biotecteDenty's code = 6690-2) which generat ed this result transmitted reference range : 3.8 - 10.8 Thousand/uL. Th e reference range was not used to interpret this result as normal/abnormal . RED BLOOD CELL 4.48 See_Comment [Automated COUNT-Q (test message] The s ystem code = 789-8) which generate d this result transmitted reference range : 3.80 - 5.10 Million/uL. The reference range was not used to interpret this result as normal/abnormal . HEMOGLOBIN-Q 13.6 g/dL 11.7-15.5 (test code = 718-7) HEMATOCRIT-Q 40.2 % 35.0-45.0 (test code = 4544-3) MCV-Q (test code 89.7 fL 80.0-100.0 = 787-2) MCH-Q (test code 30.4 pg 27.0-33.0 = 785-6) MCHC-Q (test 33.8 g/dL 32.0-36.0 code = 786-4) RDW-Q (test code 12.4 % 11.0-15.0 = 788-0) PLATELET COUNT-Q 248 See_Comment [Automated (test code = message] The sy stem 777-3) which generated this result transmitted reference range : 140 - 400 Thousand/uL. Th e reference range was not used to interpret this result as normal/abnormal . MPV-Q (test code 8.8 fL 7.5-12.5 = 776-5) ABSOLUTE 2408 See_Comment [Automated NEUTROPHILS-Q message] The s ystem (test code = which generated 751-8) this result transmitted reference range : 1500 - 7800 cells/uL. The reference range was not used to interpret this result as normal/abnormal . ABSOLUTE 2127 See_Comment [Automated LYMPHOCYTES-Q message] The s ystem (test code = which generated 731-0) this result transmitted reference range : 850 - 3900 cells/uL. The reference range was not used to interpret this result as normal/abnormal . ABSOLUTE 411 See_Comment [Automated MONOCYTES-Q message] The sy stem (test code = which generated 742-7) this result transmitted reference range : 200 - 950 cells /uL. The reference r zi was not used to interpret this result as normal/abnormal . ABSOLUTE 203 See_Comment [Automated EOSINOPHILS-Q message] The s ystem (test code = which generated 711-2) this result transmitted reference range : 15 - 500 cells/uL. The reference range was not used to interpret this result as normal/abnormal . ABSOLUTE 52 See_Comment [Automated BASOPHILS-Q message] The sy stem (test code = which generated 704-7) this result transmitted reference range : 0 - 200 cells/uL. The reference range was not used to interpret this result as normal/abnormal . NEUTROPHILS-Q 46.3 % (test code = 770-8) LYMPHOCYTES-Q 40.9 % (test code = 736-9) MONOCYTES-Q 7.9 % (test code = 5905-5) EOSINOPHILS-Q 3.9 % (test code = 713-8) BASOPHILS-Q 1 % (test code = 706-2) ABRAN (test code = PERFORMED BY [facility]) [facility]; [address] [place] [address]; MARGRET GONZALEZ MD [facility]. METABOLIC PANEL ([id number])2022-04-26 03:22:58 Test Item Value Reference Range Interpretation Comments NA (test code = 140 mmol/L 135-145 0322996929) K (test code = 4.0 mmol/L 3.5-5.0 1616075678) CL (test code = 105 mmol/L 98-108 0726819416) CO2 TOTAL (test code 29 mmol/L 23-31 = 1438049974) AGAP (test code = 2-16 9301598692) BUN (test code = 10 mg/dL 7-23 6063766683) GLUCOSE (test code = 89 mg/dL 70-110 8048874855) CREATININE (test code 0.70 mg/dL 0.50-1.04 = 9506074936) TOTAL BILI (test code 0.2 mg/dL 0.1-1.1 = 5661720946) CALCIUM (test code = 9.0 mg/dL 8.6-10.6 4833452862) T PROTEIN (test code 6.4 g/dL 6.3-8.2 = 8735614674) ALBUMIN (test code = 4.0 g/dL 3.5-5.0 0540425684) ALK PHOS (test code = 102 U/L 34-122 5202750183) ALTv (test code = 30 U/L 5-35 1742-6) AST(SGOT) (test code 33 U/L 13-40 = 4477918113) eGFR (test code = mL/min/1.73m2 6992495186) ABRAN (test code = ABRAN) Association of Glomerular Filtration Rate (GFR) and Staging of Kidney Disease* + + +- +| GFR (mL/min/1.73 m2) ?| With Kidney Damage ?| ?Without Kidney Damage+ ------+ ----+ ------+| ?>90 ?| ?Stage one ?| ? Normal ?+ -+ + -+| ?60-89 ?| ?Stage two ?| ? Decreased GFR ? + + +- +| ?30-59 ?| ?Stage three ?| ? Stage three ? + + +- +| ?15-29 ?| ?Stage four ? | ? Stage four ?+ -+ + -+| ?<15 (or dialysis) ? ?| ?Stage five ? | ? Stage five ?+ -+ + -+ *Each stage assumes the associated GFR level has been in effect for at least three months. ?Stages 1 to 5, with or without kidney disease, indicate chronic kidney disease. Notes: Determination of stages one and two (with eGFR >59mL/min/1.73 m2) requires estimation of kidney damage for at least three months as defined by structural or functional abnormalities of the kidney, manifested by either:Pathological abnormalities or Markers of kidney damage (including abnormalities in the composition of the blood or urine or abnormalities in imaging tests). [facility]2022-[facility]-31 03:22:33 Test Item Value Reference Range Interpretation Comments LIPASE (test code = 7929141859) 237 U/L 0-220 H Lab Interpretation (test code = Abnormal 39573-9) [facility] WITH [id number] 03:06:33 Test Item Value Reference Range Interpretation Comments WBC (test code = See_Comment [Automated 0697-2) message] The sy stem which generated this result transmitted reference range : 4.30 - 11.10 10*3/?L. The reference range was not used to interpret this result as normal/abnormal . RBC (test code = See_Comment [Automated 655-8) message] The sy stem which generated this result transmitted reference range : 3.93 - 5.25 10*6/?L. The reference range was not used to interpret this result as normal/abnormal . HGB (test code = 12.6 g/dL 11.6-15.0 718-7) HCT (test code = 38.3 % 35.7-45.2 4544-3) MCV (test code = 91.6 fL 80.6-95.5 787-2) MCH (test code = 30.1 pg 25.9-32.8 785-6) MCHC (test code = 32.9 g/dL 31.6-35.1 786-4) RDW-SD (test code = 41.1 fL 39.0-49.9 97354-5) RDW-CV (test code = 12.1 % 12.0-15.5 788-0) PLT (test code = See_Comment [Automated 777-3) message] The sy stem which generated this result transmitted reference range : 166 - 358 10*3/ ?L. The reference r zi was not used to interpret this result as normal/abnormal . MPV (test code = 9.0 fL 9.5-12.9 L 75957-0) NRBC/100 WBC (test See_Comment [Automat ed code = 2164045790) message] The system which generated this result transmitted reference range : 0.0 - 10.0 /100 WBCs. The refer ence range was not u sed to interpret th is result as normal/abnormal . NRBC x10^3 (test code See_Comment [Auto mated = 7380854889) message] The s ystem which generated this result transmitted reference range : 10*3/?L. The reference range was not used to interpret this result as normal/abnormal . GRAN MAT (NEUT) % 51.7 % (test code = 770-8) IMM GRAN % (test code 0.30 % = 5905611027) LYMPH % (test code = 33.2 % 736-9) MONO % (test code = 9.0 % 5905-5) EOS % (test code = 4.6 % 713-8) BASO % (test code = 1.2 % 706-2) GRAN MAT x10^3(ANC) 3.12 10*3/uL 1.88-7.09 (test code = 7576100131) IMM GRAN x10^3 (test 0.00-0.06 code = 3350161087) LYMPH x10^3 (test code 2.00 10*3/uL 1.32-3.29 = 731-0) MONO x10^3 (test code 0.54 10*3/uL 0.33-0.92 = 742-7) EOS x10^3 (test code = 0.28 10*3/uL 0.03-0.39 711-2) BASO x10^3 (test code 0.07 10*3/uL 0.01-0.07 = 704-7) Lab Interpretation Abnormal (test code = 47506-9) [facility] W/AUTO [id number] 04:52:00 Test Item Value Reference Range Interpretation Comments WHITE BLOOD CELL (test code = 6.6 K/mm3 3.5-11.0 N WBC) RED BLOOD CELL (test code = 3.75 M/mm3 4.70-6.10 L RBC) HEMOGLOBIN (test code = HGB) 11.5 G/DL 10.4-14.9 N HEMATOCRIT (test code = HCT) 34.8 % 31.5-44.1 N MEAN CELL VOLUME (test code = 92.8 Fl 84.5-98.6 N MCV) MEAN CELL HGB (test code = MCH) 30.7 pg 27.0-34.2 N MEAN CELL HGB CONCETRATION 33.0 G/DL 31.5-34.0 N (test code = MCHC) RED CELL DISTRIBUTION WIDTH 12.7 SD 11.5-14.5 N (test code = RDW) PLATELET COUNT (test code = 217 K/mm3 150-450 N PLT) MEAN PLATELET VOLUME (test code 8.60 fL 7.0-10.5 N = MPV) NEUTROPHIL % (test code = NT%) 74.7 % 40-76 N IMMATURE GRANULOCYTE % (test 0.2 % 0.0-5.0 N code = IG%) LYMPHOCYTE % (test code = LY%) 17.6 % 20.5-51.1 L MONOCYTE % (test code = MO%) 7.0 % 1.7-9.3 N EOSINOPHIL % (test code = EO%) 0.3 % 0.0-6.0 N BASOPHIL % (test code = BA%) 0.2 % 0.0-2.0 N NUCLEATED RBC % (test code = 0.0 /100WBC% 0.0-1.0 N NRBC%) NEUTROPHIL # (test code = NT#) 4.9 K/mm3 1.8-7.6 N IMMATURE GRANULOCYTE # (test 0.01 x10 3/uL 0.00-0.03 N code = IG#) LYMPHOCYTE # (test code = LY#) 1.2 K/mm3 0.6-3.2 N MONOCYTE # (test code = MO#) 0.5 K/mm3 0.3-1.1 N EOSINOPHIL # (test code = EO#) 0.0 K/mm3 0.0-0.4 N BASOPHIL # (test code = BA#) 0.0 K/mm3 0.0-0.1 N NUCLEATED RBC # (test code = 0.0 K/mm3 0.0-0.1 N NRBC#) MANUAL DIFF REQUIRED (test code NO DIFF/SCN CRITERIA = MDIFF) COVID 19 INHOUSE [id number] 11:11:00 Test Item Value Reference Range Interpretation Comments COVID 19 INHOUSE AG NEGATIVE Negative Per manu facturer, (test code = negative result s should [id number]) be treated aspr esumptive and, if inconsi stent with clinical signs andsymptoms or necessary for patient man agement, should betested with an alternative mol ecular assay. Negative resultsdo not preclude SA RS-CoV-2 infection and s hould not be usedas the s ole basis for patient man agement decisions. Nega tive results should be considered in t he context of apatient's r ecent exposures, hist ory, presence of cli nicalsigns and symptoms co nsistent with COVID-19. BASIC METABOLIC [id number] 10:51:00 Test Item Value Reference Range Interpretation Comments SODIUM (test code = NA) 141 mmol/L 134-147 N POTASSIUM (test code = 3.9 mmol/L 3.4-5.0 N K) CHLORIDE (test code = 105 mmol/L 100-108 N CL) CARBON DIOXIDE (test 32 mmol/L 21-32 N code = CO2) ANION GAP (test code = 4.0 GAP calc 4.0-15.0 N GAP) GLUCOSE (test code = 95 MG/DL 70-110 N GLU) BLOOD UREA NITROGEN 12 MG/DL 7-18 N (test code = BUN) GLOMERULAR FILTRATION >=60 max estimate >60 RATE (test code = GFR) estGFR CREATININE (test code = 0.7 MG/DL 0.6-1.0 N CREAT) CALCIUM (test code = CA) 9.0 MG/DL 8.5-10.1 N PROTHROMBIN [id number] 10:39:00 Test Item Value Reference Range Interpretation Comments PT PATIENT (test 11.3 SECONDS 9.3-12.9 N code = PTP) INTERNATIONAL NORMAL 0.99 INR Unit 0.8-1.2 N TARG ET INR BY RATIO (test code = INDICATIO N Indication INR) INR1. Prophylax is of venous thrombos is 2.0 - 3.0 (orthoped ic surgery), Proph ylaxis of venous throm bosis (other than hig h-risk surgery), Treat ment of Deep Vein Thrombosis/Pulm onary Embolism, Preve ntion of systemic emb olism - Tissue heart va lves, Acute Myocardia l Infarction (to prevent systemic emboli sm), Valvular heart disease, Acute Myocardial Infa rction (to prevent sys temic embolism), Valv ular heart disease, Atrial Fibrillation, Bileaflet mecha nical valve in aortic position.2. Mec hanical prosthetic valv es (high risk), 2. 5 - 3.5 Presence of Lup us Anticoagulant o r Antiphospholipi d Antibodies, Pre vention of systemic emb olism - Acute Myocardia l Infarction (to prevent recurrent infar ct). THROMBOPLASTIN TIME [id number] 10:39:00 Test Item Value Reference Range Interpretation Comments THROMBOPLASTIN TIME PARTIAL 33.3 SECONDS 26-35 N (test code = PTT) CBC W/AUTO [id number] 10:32:00 Test Item Value Reference Range Interpretation Comments WHITE BLOOD CELL (test code = 4.1 K/mm3 3.5-11.0 N WBC) RED BLOOD CELL (test code = 4.28 M/mm3 4.70-6.10 L RBC) HEMOGLOBIN (test code = HGB) 13.2 G/DL 10.4-14.9 N HEMATOCRIT (test code = HCT) 39.6 % 31.5-44.1 N MEAN CELL VOLUME (test code = 92.5 Fl 84.5-98.6 N MCV) MEAN CELL HGB (test code = MCH) 30.8 pg 27.0-34.2 N MEAN CELL HGB CONCETRATION 33.3 G/DL 31.5-34.0 N (test code = MCHC) RED CELL DISTRIBUTION WIDTH 12.7 SD 11.5-14.5 N (test code = RDW) PLATELET COUNT (test code = 275 K/mm3 150-450 N PLT) MEAN PLATELET VOLUME (test code 8.50 fL 7.0-10.5 N = MPV) NEUTROPHIL % (test code = NT%) 50.6 % 40-76 N IMMATURE GRANULOCYTE % (test 0.2 % 0.0-5.0 N code = IG%) LYMPHOCYTE % (test code = LY%) 37.0 % 20.5-51.1 N MONOCYTE % (test code = MO%) 8.5 % 1.7-9.3 N EOSINOPHIL % (test code = EO%) 2.7 % 0.0-6.0 N BASOPHIL % (test code = BA%) 1.0 % 0.0-2.0 N NUCLEATED RBC % (test code = 0.0 /100WBC% 0.0-1.0 N NRBC%) NEUTROPHIL # (test code = NT#) 2.1 K/mm3 1.8-7.6 N IMMATURE GRANULOCYTE # (test 0.01 x10 3/uL 0.00-0.03 N code = IG#) LYMPHOCYTE # (test code = LY#) 1.5 K/mm3 0.6-3.2 N MONOCYTE # (test code = MO#) 0.4 K/mm3 0.3-1.1 N EOSINOPHIL # (test code = EO#) 0.1 K/mm3 0.0-0.4 N BASOPHIL # (test code = BA#) 0.0 K/mm3 0.0-0.1 N NUCLEATED RBC # (test code = 0.0 K/mm3 0.0-0.1 N NRBC#) MANUAL DIFF REQUIRED (test code NO DIFF/SCN CRITERIA = MDIFF) URINALYSIS [id number] 10:31:00 Test Item Value Reference Range Interpretation Comments UA GLUCOSE DIPSTICK (test NEGATIVE mg/dL NEG code = DGLUU) UA BILIRUBIN DIPSTICK (test NEGATIVE mg/dL NEG code = BILU) UA KETONE DIPSTICK (test NEGATIVE mg/dL NEG code = KETU) UA SPECIFIC GRAVITY (test <=1.005 SG 1.005-1.030 code = SGU) UA BLOOD DIPSTICK (test NEGATIVE mg/DL NEG code = MARCOS) UA PH DIPSTICK (test code = 5.5 pH UNITS 5.0-7.0 KARINA) UA PROTEIN DIPSTICK (test NEGATIVE mg/dL NEG code = PROU) UA UROBILINIOGEN DIPSTICK 0.2 mg/dL <2.0 (test code = URO) UA NITRITE DIPSTICK (test NEGATIVE SCREEN NEG code = LUZ) UA LEUKOCYTE ESTERASE NEGATIVE Leuk/mcL NEGATIVE DIPSTICK (test code = LEUU) Urine Specimen Type: Clean Catch- XR CHEST 1 [id number] 10:31:00 [facility] 1960 Sex: F Name: SHANIQUA QUINN [facility] : 1960 Age/S: 62 / F [id number] Unit #: [id number]: [place] [address] Phys: Katie Watters MD Acct: [id number] Dis Date: Status: PRE [facility] PHONE #: [phone] Exam Date: 01/21/2022 1022 FAX #: Reason: SURGERY EXAMS: CPT: [id number] XR CHEST1 V 83196 Fluoro Time: DAP (Gy m2): Air Kerma (mGy): EXAM: - XR CHEST 1 V CLINICAL HISTORY: SURGERY TECHNIQUE: Single frontal view. COMPARISON: None available. LOCATION: U19 FINDINGS: The trachea appears normal. The mediastinum and cardiac silhouette are within normal limits for size. The lungs are clear. No pleural effusions. Limited evaluation of soft tissues and osseous structures is grossly unremarkable. IMPRESSION: No acute cardiopulmonary process. Electronically Signed by Yan Burns 01/21/2022 at 1031 Reported and signed by: Greg Johnson D.O. CC: Katie Watters MD PAGE 1 Signed Report Name: SHANIQUA QUINN [place] : 1960 Age/S: 62 / F [id number] Unit #: [id number] Loc: [place] [address] Phys: Katie Watters MD Acct: [id number] Dis Date:Status: PRE SDC PHONE #: [phone] Exam Date: 01/21/2022 1022 FAX #: Reason: SURGERY EXAMS: CPT: [id number] XR CHEST 1 V 52995 Fluoro Time: DAP (Gy m2): Air Kerma (mGy): (Continued) Technologist: Gunnar Shrestha, RT(R)(CT) Trnscb Date/Time: 01/21/2022 (1031) [id number] Orig Print D/T: S: 01/21/2022 (1034) PAGE 2 Signed ReportPOCT URINALYSIS W SPECIFIC GRAVITY 2022-01-06 15:30:00 Test Item Value Reference Range Interpretation Comments POCT U SP GRAV (test code = 1.020 mg/dl 1.005-1.025 3255) POCT PH U (test code = 3254) 5 mg/dl 5-8 POCT U LEUK EST (test code = Positive Negative - Negative 3263) POCT U NIT (test code = 3262) Positive Negative - Negative POCT U PROT (test code = Trace Negative - Negative 3259) POCT U GLU (test code = 3256) Negative Negative - Negative POCT U KETONE (test code = Small Negative - Negative 3258) POCT U UROBILI (test code = 4 mg/dl 0.2-1 A 3260) POCT U BILI (test code = Positive Negative - Negative 3261) POCT U BLD (test code = 3257) Positive Negative - Negative POCT U COLOR (test code = Yellow 3266) POCT U APPEAR (test code = Cloudy 3267) Lab Interpretation (test code Abnormal = 54809-0) [facility] [id number] 14:32:00 Test Item Value Reference Range Interpretation Comments POCT U SP GRAV (test code = 1.020 mg/dl 1.005-1.025 3255) POCT PH U (test code = 3254) 5 mg/dl 5-8 POCT U LEUK EST (test code = neg Negative - Negative 3263) POCT U NIT (test code = 3262) neg Negative - Negative POCT U PROT (test code = neg Negative - Negative 3259) POCT U GLU (test code = 3256) neg Negative - Negative POCT U KETONE (test code = neg Negative - Negative 3258) POCT U UROBILI (test code = neg 0.2-1 3260) POCT U BILI (test code = neg Negative - Negative 3261) POCT U BLD (test code = 3257) trace Negative - Negative POCT U COLOR (test code = yellow 3266) POCT U APPEAR (test code = clear 3267) Lab Interpretation (test code Abnormal = 43320-9) [facility]CIFIC [id number] 14:32:00 Test Item Value Reference Range Interpretation Comments POCT U SP GRAV (test code = 1.020 mg/dl 1.005-1.025 3255) POCT PH U (test code = 3254) 5 mg/dl 5-8 POCT U LEUK EST (test code = neg Negative - Negative 3263) POCT U NIT (test code = 3262) neg Negative - Negative POCT U PROT (test code = neg Negative - Negative 3259) POCT U GLU (test code = 3256) neg Negative - Negative POCT U KETONE (test code = neg Negative - Negative 3258) POCT U UROBILI (test code = neg 0.2-1 3260) POCT U BILI (test code = neg Negative - Negative 3261) POCT U BLD (test code = 3257) trace Negative - Negative POCT U COLOR (test code = yellow 3266) POCT U APPEAR (test code = clear 3267) Lab Interpretation (test code Abnormal = 22941-8) [facility] Notes Date/Time Note Provider Source 2022-02-08 06:41:00-00:00 [id number] [place] [address] PATIENT NAME: SHANIQUA QUINN ADMIT DATE: 01/23 ACCOUNT NO: [id number] ROOM NO: L.S202 AGE: 62 REPORT TYPE: OPERATIVE REPORT SEX: F ADMITTING PHYSICIAN: Katie Watters MD ATTENDING PHYSICIAN: Katie Watters MD OPERATION DATE: 02/22/2022 PREOPERATIVE DIAGNOSES: Stage II anterior and po sterior wall defect, apical prolapse, perineal body defect and stress urinar y incontinence. POSTOPERATIVE DIAGNOSES: Stage II medical receptionist ior wall defect with enterocele, vault prolapse, perineal body defect and stress urinar y incontinence. There was no anterior wall prolapse after the repair was done and even prior to that very insignificant. PROCEDURES PERFORMED: 1. Biologic graft augmented posterior wall repai r with bilateral sacrospinous ligament fixation colpopexy. 2. Posterior enterocele repair. 3. Perineorrhaphy. 4. Tension-free transobturator midurethral sling . 5. Cystoscopy. SURGEON: Felicia Watters M.D. IRON PILER: Unsure of FA name. ANESTHESIA: General endotracheal. FINDINGS: POP-Q -2, -2, -4, 5, moderate 8, 0+1 N A COMPLICATIONS: None. ESTIMATED BLOOD LOSS: 50 mL. SPECIMENS: None. DRAINS: Dhaliwal catheter and vaginal packing. IMPLANTS: TVT-O and [place] Dermis graft. FLUIDS IN: 1300 mL. URINE OUTPUT: 200 mL. APPROACH: Vaginal. PATIENT NAME: SHANIQUA QUINN [id number] COUNTS: Correct. PATIENT'S CONDITION: Stable. DISPOSITION: Discharged to Medical/Surgical floo r for overnight observation. INDICATIONS: The patient is a 62-year-old with s ymptomatic vaginal prolapse evaluated in the office. All alternatives includ ing physical therapy, pessary and surgery were reviewed. After understanding a ll the benefits and risks and consented to the alternative s, the patient was consented for surgery and brought into the hospital. She was consented for an ante rior and posterior repair, apical repair, use of a biologic graft for augme ntation of the anterior and posterior wall, a mid urethral sling and cystosc opy. Urodynamics were done in the office and results were reviewed as well. DESCRIPTION OF PROCEDURE: After informed consent was reverified, she was taken back to the OR, 2 g of Ancef were given, SCDS were placed. She was placed in a supine fashion on the operat ing table and general anesthesia was given. She was placed in the dorsal lithoto my position using the Jeremiah stirrups. After timeout was done and positioning checked, lower abdomen, vulva, vagina, and perineum were prepped and draped in a sterile fashion. After examination under anesthesia, POP- Q was taken, noticed that there was no significant anterior wall de fect, most likely caused by the apical and posterior defect. So, plan was to repair apex through the posterior wall and assess the anterior wall after that unless there was a need to repair that. Allis clamps were placed at the remnants of the hymenal ring, then in the midline posterior wall and the mid wall. Then, dilute vasopressin was injected at the perineum as well as t he posterior wall, going through the midline all the way to the apex. The apex was identified with the help of the scar at the apex post-hysterectomy and this was marked with 3-0 V icryl sutures. A triangular skin incision w as made on the perineum and another one made in the distal posterior wall and one over the l ower one-third. Epithelium was removed from the posterior wall and the skin on the evert neum was also removed all the way into the vestibule bringing these 2 incision s as areas together. Then, posterior wall vaginal epithelium was dissected away from the underlying connective tissue all the way from the distal on e-third laterally to the perineal body on each side and the structures of the perineal body were also dissected on both sides. Next, attention was directed to the dissection of the posterior wall superior to this incision , which is the proximal two-thirds. In the center, dissection was c arried to open up with sharp dissection all the way to the level of the apex, th en laterally dissection was performed with a sponge to take down this epithelium since good plane wa s already created. Once the enterocele was completely dissected, then I went on to the right perirectal space, dissecting the rectum medially af ter identifying the ischial spine, the sacrospinous ligament was cleaned up. Si milar dissection performed on the left side and the ligament was cleaned up as well. Th e apex was identified and the remnants of the uterosacrals were identi fied. Capio device was then taken with a Prolene suture placed 2.5 cm medial to the ischial spine on the mid ligament, first on the right then on the left. These 2 wer e tagged with clamps. Next, the posterior enterocele was repaired with the help of a 3-0 Monocryl suture in a pursestring fashion. Once this was red uced, another [id number] closure was PATIENT NAME: SHANIQUA QUINN [id number] done in the more distal part of the enterocele until the top of the rectovaginal septum with all the connective tissues identifie d. The vaginal apex at the remnants of the uterosac ral suspensions they could be identified. They were taken with the help of del ayed absorbable suture, 2-0 PDS, two stitches one on each side were taken an d these were clamped and retracted superiorly. The bi ologic graft was then taken and fashioned to fit to size to 8 x 6 x 3. Once this was soaked according to package instructions, this was brought in and the 2 PDS sutures were first fixed to the apex and the central apex, thenthe Prolen e sutures to the sacrospinous ligament were attached to the graft with a volodymyr stitch. The graft was retracted superiorly. The lateral paulino were well diss ected for the attachment of the graft, PDS suture in the middle of the lateral wall was placed, one o n each side and PDS was taken and the posterior wall plicated in the midline. There was no site-specific defect. There was a general defect here with a c onnective tissue that was [TIME: 08:53] in the lower one-fift h, very close to the perineal body and this was protruding. So, goal was to bring this plicated and attached to the graft. The graft was trimmed by a centimeter in the midline, so that it could be attached to the connective tissue. This was done with th e help of the 2-0 PDS suture, one each on both sides to lay down the graft flat were pl aced. Next, the perineal body was brought together with the help of 2-0 Vicryl sutures x3 in two layers to reconstruct it all the way from the vestibular a mauricio to the perineum. The vaginal epithelium was left untrimmed. The 2 -0 Vicryl suture was taken to start the closure of the vaginal epithelium in t he midline. After two bites were taken, this was retract ed superiorly. Then, the PDS sutures were tied down in the center. Then, the sacrospinous sutures we re tied down laterally. Then, the PDS attached to the lateral aspect of the gr aft here and tied down to lay the graft down though and th en the vaginal epithelial closure was done at least one-half the way and then slight trimmin g had to be done to get a well-opposed posterior wall without a dog ear. The entire closure was perfo rmed with 2-0 Vicryl to the level of the hymen here. A 3-0 Vicryl suture was taken and in a subcutan eous fashion and subcuticular fashion, dressings to the perineal incision that was closed. Rectal exam was performed and no evidence of any trauma to the r ectum or foreign body. The Dhaliwal that was inserted before the procedure was retracted superiorly. Midurethral area was identified. Two Allis clamp s were placed on each side in the midurethral area, inject ed with dilute vasopressin in the center as well as both sides along the tract, going to the transob turator space. Then the incision was made with a 15 blade. Dissection ca rried under the fascia with Metzenbaum scissors at a 45- degree angle going below the inferior pubic ramus to the obturator membrane. Once the membrane was pe rforated and the tract was expanded, pulled back with scissors, a wing guid e was placed and a TVT was taken, the spike was passed with a plastic dilat or on it along the wing guide until the membrane was perforated. Wing guide wa s removed and pass completed staying hard to the inferior pubic ramus and exi ting at least 2 cm lateral to the groin fold above the level of the horizontal line dropped at the level of the meatus. A similar pass taken on the opposite side withou t any problems. Now, both PATIENT NAME: SHANIQUA QUINN ACCOUNT #: [id number] plastic dilators were pulled out, mesh and graft s were held with [employer]'s. Dilator cut out, then mesh in the center was held with an Allis clamp at least 0.5 cm. This was pulled all the way down to the level of the mid urethra. The lateral sleeves were then used to tensio n the mesh appropriately, although the plastic sheaths were pulled out, the Allis in the middle was taken off the mesh. It was very well inlaid without any tension, bu t not too loose either, then went ahead and irrigated this with antibiotic so lution and the epithelium was closed with the help of 3-0 Vicryl in a continuo us running fashion. The Dhaliwal was removed, cystoscopy was performed with the 1 7-Tamazight sheath and 30-degree lens and normal saline. No e vidence of any mesh or foreign body in the bladder. Both ureteral orifices had strong jets of efflu x. Bladder was drained. Dhaliwal was replaced, attached to the tubing the skin in cisions were closed with the help of Dermabond. Vagina was packed with Kerlix roll. The patient was recovered from anesthesia and taken to the PACU in stable condition. EBL was minimal, 50 mL. The patient tolerated the proced ure well. All counts were correct. Her family was debriefed about her proc edure. PLAN FOR DISCHARGE: The next day after a voiding trial. Dictated By: Katie Watters MD Date Dictated: 02/08/2022 06:41:42 Date Transcribed: 02/08/2022 10:37:06 KEILY/CHRIST/LUDWIN Receipt ID: [id number] Authenticated and Edited by Katie Watters MD On 02/27/22 1:02:30 PM at 0103 PATIENT NAME: SHANIQUA QUINN [id number] 0675-09-29 08:21:00-00:00 [facility] ([facility]) Brief Op Note REPORT#:[id number] REPORT STATUS: Signed DATE:01/23/22 TIME:820 PATIENT: SHANIQUA QUINN UNIT #: [id number] ROOM/BED: [place] [address] : [birth year] AGE: 62 SEX: F ATTEND: Sa evaristo Watters MD ADM AUTHOR: Katie Watters MD * ALL edits or amendments must be made on the el ectronic/computer document * Op/Inv Proc Note - Brief Pre-procedure diagnosis: stage 2 ant post wall defect, apical prolapse, p erineal body defect, ANURAG Post-procedure diagnosis: 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, vault prolapse, perineal body defect, ANURAG Procedures performed: Biologic graft augmented pos t repair and bilat SSLF colpopexy, post eneterocele repair, TO MUS, cysto, perineorrhaphy Primary Surgeon: marco Kettle Loader(s): reyes Anesthesia: general anesthesia Findings: -2/-2/-4/5/mod/8/0/+1/na Complications: none Estimated blood loss in ml's: 50 Specimens removed/altered: none (none) Drain(s): Dhaliwal Catheter Placed Implant(s): TVT-O and axis dermis graft Fluids: 1300 lr Urine output: 200 Approach: vg Disposition: MEDSURG Counts: Sponge count: correct Instrument count: correct Needle count: correct Electronically Signed by Katie Watters MD o n 01/23/22 at 1124 [facility] #: [id number] END OF REPORT 2022-01-21 09:16:00-00:00 [id number] [place] [address] PATIENT NAME: SHANIQUA QUINN ADMIT DATE: 01/23 ACCOUNT NO: [id number] ROOM NO: L.S202 AGE: 62 REPORT TYPE: eELECTROCARDIOGRAM SEX: F ADMITTING PHYSICIAN: Katie Watters MD ATTENDING PHYSICIAN: Katie Watters MD Order: [id number] Test Reason : PRE OP Test Date/Time Stamp: ThuJan 21 2022 09:16:14 Blood Pressure : / mmHG Vent. Rate : 059 BPM Atrial Rate : 059 BPM P-R Int : 210 ms QRS Dur : 086 ms QT Int : 432 ms P-R-T Axes : 054 058 069 degree s QTc Int : 427 ms Sinus bradycardia with 1st degree AV block Otherwise normal ECG No previous ECGs available Confirmed by MD Cisco, Tony ([id number]) on 11:04:46 AM Referred By: Katie Watters Confirmed by:Tony Peck MD at 1104 PATIENT NAME: SHANIQUA QUINN [id number]"
[2022-09-13 04:46] LABS: Absolute Lymphocytes (CBC) 1.9 K/uL (0.7-4.9); Hematocrit 35.6 % (36.0-45.0); Lymphocytes % 34.7 % (15.3-44.8); MCV 89.6 fL (80-100); MPV 6.4 fL (7.6-11.3); RBC Red Blood Cell Count 3.97 M/uL (3.86-4.86)
[2022-09-13] MEDS ORDERED: KETOROLAC 30 MG/ML INJ ONE (04:46)
[2022-09-13] MEDS ORDERED: METOCLOPRAMIDE 10 MG/2mL INJ ONE (04:46)
[2022-09-13] MEDS ORDERED: DIPHENHYDRAMINE 50 MG/ML VIAL ONE (04:46)
[2022-09-13] MEDS ORDERED: NA CHLORIDE 0.9% 1,000 ML ONE (04:47)
[2022-09-13 05:01] LABS: Potassium 3.4 mEq/L (3.5-5.1); Troponin High Sensitivity 4.3 pg/mL (<58.9)
--- NOTE | 2022-09-13 06:42 | ER ---
Nurse's Notes [facility] Name: Glenny Peoples Age: 62 yrs Sex: Female : 1960 Arrival Date: 09/13/2022 Time: 03:46 Bed 19 Private MD: Diagnosis: Headache Presentation: 09/13 03:52 Chief complaint: Patient states: I woke up around 2:30 this morning with a very sharp kd3 headache and i checked my waatch and it happen to say i was in A.Fib. I do not have a history of A.Fib but Dr. Mcneil said that if my apple watch ever said i was in A fib to go to the hospital. I do have a history of two previous strokes. When i was at [facility] yesterday my left leg went completely numb. That numbness isn't there anymore but my feet are swollen. Coronavirus screen: Vaccine status: Patient reports receiving the 2nd dose of the covid vaccine. Ebola Screen: No symptoms or risks identified at this time. Initial Sepsis Screen: Does the patient meet any 2 criteria? No. Patient's initial sepsis screen is negative. Does the patient have a suspected source of infection? No. Patient's initial sepsis screen is negative. Risk Assessment: Do you want to hurt yourself or someone else? Patient reports no desire to harm self or others. Onset of symptoms was September 13, 2022. 03:52 Method Of Arrival: Ambulatory kd3 03:52 Acuity: KODY 3 kd3 Triage Assessment: 03:57 Headache History: The patient has had previous headaches and this one is different than kd3 previous episodes. General: Appears uncomfortable, Behavior is calm, cooperative. Pain: Complains of pain in headache Pain currently is 8 out of 10 on a pain scale. Pain began suddenly, Also complains of nausea. Neuro: Level of Consciousness is awake, alert, obeys commands, Oriented to person, place, time, situation. Respiratory: Airway is patent Trachea midline Respiratory effort is even, unlabored, Respiratory pattern is regular, symmetrical. Historical: - Allergies: 03:57 PENICILLINS; kd3 03:57 Sulfa (Sulfonamide Antibiotics); kd3 - PMHx: 03:57 Hypertensive disorder; High Cholesterol; Gastroesophageal reflux disease; Bipolar kd3 disorder; Anxiety; Seizure; - PSHx: 03:57 Appendectomy; Cholecystectomy; kd3 - Immunization history:: Adult Immunizations up to date. - Social history:: Smoking status: Patient/guardian denies using tobacco, but has a distant history of tobacco abuse. Screenin:00 [facility] ED Fall Risk Assessment (Adult) History of falling in the last 3 months, ha1 including since admission No falls in past 3 months (0 pts) Confusion or Disorientation No (0 pts) Intoxicated or Sedated No (0 pts) Impaired Gait No (0 pts) Mobility Assist Device Used No (0 pt) Altered Elimination No (0 pt) Score/Fall Risk Level 0 - 2 = Low Risk Oriented to surroundings, Maintained a safe environment, Educated pt \T\ family on fall prevention, incl call for assistance when getting out of bed, Hourly rounding (assess needs \T\ fall precautionary measures) done. 05:02 Abuse screen: Denies threats or abuse. Denies injuries from another. Nutritional ha1 screening: No deficits noted. Tuberculosis screening: No symptoms or risk factors identified. Assessment: 04:00 General: Appears uncomfortable, Behavior is calm, cooperative. Pain: Complains of pain ha1 in fromtal lobe of head Pain does not radiate. Pain currently is 6 out of 10 on a pain scale. Neuro: Level of Consciousness is awake, alert, obeys commands, Oriented to person, place, time, situation. Cardiovascular: Patient's skin is warm and dry. Respiratory: Airway is patent Respiratory effort is even, unlabored, Respiratory pattern is regular, symmetrical. GI: No signs and/or symptoms were reported involving the gastrointestinal system. Abdomen is round non-distended. : No signs and/or symptoms were reported regarding the genitourinary system. Derm: Skin is pink, warm \T\ dry. Musculoskeletal: Circulation, motion, and sensation intact. Range of motion: intact in all extremities. 04:02 Reassessment: going to CT. ha1 05:00 Reassessment: Patient and/or family updated on plan of care and expected duration. Pain ha1 level reassessed. Patient is alert, oriented x 3, equal unlabored respirations, skin warm/dry/pink. Patient states feeling better. Patient states symptoms have improved. 05:44 Reassessment: Patient and/or family updated on plan of care and expected duration. Pain ha1 level reassessed. Patient is alert, oriented x 3, equal unlabored respirations, skin warm/dry/pink. pain 4/10. 06:35 Reassessment: Patient and/or family updated on plan of care and expected duration. Pain ha1 level reassessed. Patient is alert, oriented x 3, equal unlabored respirations, skin warm/dry/pink. Patient denies pain at this time. Patient states feeling better. Patient states symptoms have improved. Vital Signs: 03:52 BP 138 / 75; Pulse 85; Resp 16; Temp 98.1(O); Pulse Ox 98% on R/A; Weight 83.91 kg; kd3 Height 5 ft. 6 in. ; 04:31 BP 111 / 63; Pulse 77; Resp 14 S; Pulse Ox 99% on R/A; ha1 05:30 BP 131 / 63; Pulse 78; Resp 17 S; Pulse Ox 99% on R/A; ha1 06:30 BP 129 / 64; Pulse 72; Resp 18 S; Pulse Ox 99% on R/A; ha1 03:52 Body Mass Index 29.86 (83.91 kg, 167.64 cm) kd3 NIH Stroke Scale Scores: 05:21 NIHSS Score: 0 bs3 ED Course: 03:47 Patient arrived in ED. ag3 03:57 Triage completed. kd3 03:57 Arm band placed on right wrist. kd3 04:00 Patient has correct armband on for positive identification. Placed in gown. Bed in low ha1 position. Call light in reach. Side rails up X 1. Adult w/ patient. 04:01 Huber Kirk MD is Attending Physician. bs3 04:11 CT Head Brain wo Cont In Process Unspecified. EDMS 04:11 Inserted saline lock: 22 gauge in left antecubital area, using aseptic technique. Blood ha1 collected. 04:22 Yolie Segundo, TONEY is Primary Nurse. ha1 04:22 Basic Metabolic Panel Sent. ha1 04:22 CBC with Diff Sent. ha1 04:22 Troponin HS Sent. ha1 05:26 CT Head Angio In Process Unspecified. EDMS 05:26 CT Neck Angio In Process Unspecified. EDMS 05:46 XRAY Chest (1 view) In Process Unspecified. EDMS 06:41 José Luis Gardner MD is Referral Physician. bs3 06:54 No provider procedures requiring assistance completed. IV discontinued, intact, ha1 bleeding controlled, No redness/swelling at site. Pressure dressing applied. Administered Medications: 04:30 Drug: NS 0.9% IV 1000 ml Route: IV; Rate: 1000 ml; Site: left antecubital; ha1 06:56 Follow up: Response: No adverse reaction; IV Status: Completed infusion; IV Intake: ha1 1000ml 04:32 Drug: diphenhydrAMINE IVP 25 mg Route: IVP; Site: left antecubital; ha1 05:00 Follow up: Response: No adverse reaction ha1 04:36 Drug: Ketorolac IVP 15 mg Route: IVP; Site: left antecubital; ha1 05:00 Follow up: Response: No adverse reaction; Pain is decreased ha1 04:40 Drug: metoCLOPramide IVP 10 mg Route: IVP; Site: left antecubital; ha1 05:00 Follow up: Response: No adverse reaction ha1 Medication: 06:55 VIS not applicable for this client. ha1 Intake: 06:56 IV: 1000ml; Total: 1000ml. ha1 Outcome: 06:41 Discharge ordered by MD. bs3 06:55 Discharged to home ambulatory, with family. ha1 06:55 Condition: stable 06:55 Discharge instructions given to patient, family, Instructed on discharge instructions, follow up and referral plans. Demonstrated understanding of instructions, follow-up care. 06:57 Patient left the ED. ha1 NIH Stroke Scale - NIH Stroke Score Date: 09/13/2022 Time: 05:21 Total Score = 0 10. Dysarthria (speech clarity - read or repeat words) - 0(Normal) 11. Extinction and Inattention (visual/tactile/auditory/spatial/personal) - 0(No abnormality) 1a. Level of Consciousness (LOC) - 0(Alert) 1b. Level of Consciousness (LOC) (Month \T\ Age) - 0(Both) 1c. LOC Commands (Open \T\ Closes Eyes/Pillow Agent) - 0(Both) 2. Best Gaze (Lateral Gaze Paresis) - 0(Normal) 3. Visual Field Loss - 0(No visual loss) 4. Facial Palsy - 0(Normal) 5a. Left Arm: Motor (10-second hold) - 0(No drift) 5b. Right Arm: Motor (10-second hold) - 0(No drift) 6a. Left Leg: Motor (5-second hold - always test supine) - 0(No drift) 6b. Right Leg: Motor (5-second hold - always test supine) - 0(No drift) 7. Limb Ataxia (finger/nose \T\ heel/lindquist - test with eyes open) - 0(Absent) 8. Sensory Loss (pinprick arms/legs/face) - 0(Normal) 9. Best Language: Aphasia (description/naming/reading) - 0(No aphasia) Initials: bs3 Signatures: Dispatcher [employer] Cece Gonzalez ag3 Kizzy Gutierrez RN RN kd3 Yolie Segundo RN RN ha1 Huber Kirk MD MD bs3
--- NOTE | 2022-09-13 06:42 | EDPHYS ---
Physician Documentation [facility] Name: Glenny Peoples Age: 62 yrs Sex: Female : 1960 Arrival Date: 09/13/2022 Time: 03:46 Bed 19 Private MD: ED Physician Huber Kirk HPI: 09/13 05:21 This 62 yrs old Female presents to ER via Ambulatory with complaints of bs3 Headache, AFIB, Leg Swelling, Shortness Of Breath. 05:21 62-year-old female presents with headache, she notes that she got up because she knows bs3 her was not in the bed and developed a severe frontal headache different than her normal migraines she also reports similar headache 1 week ago she got concerned because she checked her watch which her curb machine operator is telling her to check for atrial fibrillation and was concerned when it said atrial fibrillation and therefore she came in on review of systems she notes of a shortness of breath and lower leg swelling bilaterally. Historical: - Allergies: 03:57 PENICILLINS; kd3 03:57 Sulfa (Sulfonamide Antibiotics); kd3 - PMHx: 03:57 Hypertensive disorder; High Cholesterol; Gastroesophageal reflux disease; Bipolar kd3 disorder; Anxiety; Seizure; - PSHx: 03:57 Appendectomy; Cholecystectomy; kd3 - Immunization history:: Adult Immunizations up to date. - Social history:: Smoking status: Patient/guardian denies using tobacco, but has a distant history of tobacco abuse. ROS: 05:21 Constitutional: Negative for fever, chills bs3 05:21 All other systems are negative. Exam: 05:21 Constitutional: This is a well developed, well nourished patient who is awake, alert, bs3 and in no acute distress. Head/Face: Normocephalic, atraumatic. Eyes: Pupils equal round and reactive to light, extra-ocular motions intact. Lids and lashes normal. ENT: mmm, no posterior phyarngeal erythema Neck: Trachea midline, no thyromegaly, no neck stiffness Chest/axilla: Normal chest wall appearance and motion. Nontender with no deformity. No lesions are appreciated. Cardiovascular: Regular rate and rhythm with a normal S1 and S2. symmetric pulses in upper extremities Respiratory: Lungs have equal breath sounds bilaterally, clear to auscultation, no respiratory distress Abdomen/GI: Soft, non-tender, no rebound or guarding Skin: Warm, dry with normal turgor. Normal color with no rashes, no lesions, and no evidence of cellulitis. MS/ Extremity: Pulses equal, no cyanosis. Neurovascular intact. Full, normal range of motion. She has a small amount of nonpitting edema bilaterally in her lower extremity Neuro: Awake and alert, GCS 15, oriented to person, place, time, and situation. Cranial nerves II-XII grossly intact. Motor strength 5/5 in all extremities. Sensory grossly intact. Her NIH stroke scale is 0 Vital Signs: 03:52 BP 138 / 75; Pulse 85; Resp 16; Temp 98.1(O); Pulse Ox 98% on R/A; Weight 83.91 kg; kd3 Height 5 ft. 6 in. ; 04:31 BP 111 / 63; Pulse 77; Resp 14 S; Pulse Ox 99% on R/A; ha1 05:30 BP 131 / 63; Pulse 78; Resp 17 S; Pulse Ox 99% on R/A; ha1 06:30 BP 129 / 64; Pulse 72; Resp 18 S; Pulse Ox 99% on R/A; ha1 03:52 Body Mass Index 29.86 (83.91 kg, 167.64 cm) kd3 NIH Stroke Scale Scores: 05:21 NIHSS Score: 0 bs3 MDM: 03:47 Patient medically screened. bs3 05:21 Data reviewed: vital signs, nurses notes. ED course: Patient with sudden onset of bs3 severe headache she was immediately brought to the CT to rule out intracranial hemorrhage which was interpreted by myself is negative given symptom duration less than 6 hours that should rule out ICH however after talking about the negative head CT she reports earlier in the night feeling like her leg went numb it was her left leg up the entire side she did not have any weakness but needed to sit down it occurred while she was standing at [employer] no other symptoms therefore we will do CTA to evaluate for dissection aneurysm or RCVS, will check electroloytes, her ECG is normal sinus rhythm at [address] elevations or depressions QTc is 459 as interpreted by myself I looked at the patient's EKG from her watch on her iPhone and it clearly states that it cannot interpret the EKG and cannot interpret for atrial fibrillation and does not states she has atrial fibrillation the other EKGs she had from today are all normal sinus rhythm. 06:40 ED course: Patient feeling much better requesting to go home her CTA head was negative bs3 pending CT neck she stated that she needed to go home we will call patient if there are any abnormalities on her neck besides her known stenosis return precautions given advised to follow-up with Dr. Gardner. 09/13 04:11 Order name: Basic Metabolic Panel; Complete Time: 05:39 3 09/13 04:11 Order name: CBC with Diff; Complete Time: 05:07 3 09/13 04:11 Order name: Troponin HS; Complete Time: 05:39 bs3 09/13 05:25 Order name: NT PRO-BNP; Complete Time: 05:39 EDMS 09/13 04:01 Order name: CT Head Brain wo Cont [facility] 09/13 04:11 Order name: XRAY Chest (1 view) [facility] 09/13 04:35 Order name: CT Head Angio [facility] 09/13 04:35 Order name: CT Neck Angio [facility] 09/13 04:11 Order name: EKG; Complete Time: 04:12 3 09/13 04:11 Order name: Cardiac monitoring; Complete Time: 04:22 3 09/13 04:11 Order name: EKG - Nurse/Tech; Complete Time: 04:37 3 09/13 04:11 Order name: IV Saline Lock; Complete Time: 04:22 3 09/13 04:11 Order name: Labs collected and sent; Complete Time: 04:22 3 09/13 04:11 Order name: O2 Per Protocol; Complete Time: 04:22 [facility] 09/13 04:11 Order name: O2 Sat Monitoring; Complete Time: 04:22 bs3 Administered Medications: 04:30 Drug: NS 0.9% IV 1000 ml Route: IV; Rate: 1000 ml; Site: left antecubital; ha1 06:56 Follow up: Response: No adverse reaction; IV Status: Completed infusion; IV Intake: ha1 1000ml 04:32 Drug: diphenhydrAMINE IVP 25 mg Route: IVP; Site: left antecubital; ha1 05:00 Follow up: Response: No adverse reaction ha1 04:36 Drug: Ketorolac IVP 15 mg Route: IVP; Site: left antecubital; ha1 05:00 Follow up: Response: No adverse reaction; Pain is decreased ha1 04:40 Drug: metoCLOPramide IVP 10 mg Route: IVP; Site: left antecubital; ha1 05:00 Follow up: Response: No adverse reaction ha1 Disposition Summary: 09/13/22 06:41 Discharge Ordered Location: Home bs3 Problem: new bs3 Symptoms: have improved bs3 Condition: Stable bs3 Diagnosis - Headache bs3 Followup: bs3 - With: José Luis Gardner MD - When: 2 - 3 days - Reason: Re-evaluation by your physician Discharge Instructions: - Discharge Summary Sheet bs3 - General Headache Without Cause bs3 Forms: - Medication Reconciliation Form bs3 - Thank You Letter bs3 - Antibiotic Education bs3 - Prescription Opioid Use bs3 NIH Stroke Scale - NIH Stroke Score Date: 09/13/2022 Time: 05:21 Total Score = 0 10. Dysarthria (speech clarity - read or repeat words) - 0(Normal) 11. Extinction and Inattention (visual/tactile/auditory/spatial/personal) - 0(No abnormality) 1a. Level of Consciousness (LOC) - 0(Alert) 1b. Level of Consciousness (LOC) (Month \T\ Age) - 0(Both) 1c. LOC Commands (Open \T\ Closes Eyes/Aircraft Skin Burnisher) - 0(Both) 2. Best Gaze (Lateral Gaze Paresis) - 0(Normal) 3. Visual Field Loss - 0(No visual loss) 4. Facial Palsy - 0(Normal) 5a. Left Arm: Motor (10-second hold) - 0(No drift) 5b. Right Arm: Motor (10-second hold) - 0(No drift) 6a. Left Leg: Motor (5-second hold - always test supine) - 0(No drift) 6b. Right Leg: Motor (5-second hold - always test supine) - 0(No drift) 7. Limb Ataxia (finger/nose \T\ heel/lindquist - test with eyes open) - 0(Absent) 8. Sensory Loss (pinprick arms/legs/face) - 0(Normal) 9. Best Language: Aphasia (description/naming/reading) - 0(No aphasia) Initials: bs3 Signatures: Dispatcher [employer] Kizzy Gardner RN RN kd3 Yolie Segundo RN RN ha1 Huber Kirk MD MD bs3 Corrections: (The following items were deleted from the chart) 05:22 05:21 62-year-old female presents with headache. bs3 bs3 05:23 05:22 PROBNP+C.LAB.BRZ ordered. EDMS EDMS
[2022-09-13 07:22] VITALS: TEMP 98.1
[2022-09-13 07:23] VITALS: O2SAT 99
[2022-09-13 07:26] VITALS: BP 129/64
--- NOTE | 2022-09-13 18:26 | RAD REPORT ---
EXAM DESCRIPTION: RAD - Chest Single View - 09/13/2022 5:44 am CLINICAL HISTORY: The patient is 62 years old and is Female; CHEST PAIN TECHNIQUE: Frontal view of the chest. COMPARISON: No relevant prior studies available. FINDINGS: Lungs: Unremarkable. No consolidation. Pleural space: Unremarkable. No pneumothorax. Heart: Unremarkable. Mediastinum: Unremarkable. Bones/joints: Unremarkable. IMPRESSION: No acute findings in the chest. Electronically signed by: Blaine Rodríguez MD 09/13/2022 6:06 AM CDT Due to temporary technical issues with the PACS/Fluency reporting system, reports are being signed by the in house radiologists without review as a courtesy to insure prompt reporting. The interpreting radiologist is fully responsible for the content of the report.
--- NOTE | 2022-09-13 22:18 | RAD REPORT ---
EXAM DESCRIPTION: CT - Head Brain Wo Cont - 09/13/2022 6:01 am CLINICAL HISTORY: Continuous headache TECHNIQUE: 5 mm axial images were obtained through the brain without IV contrast. This exam was perf ormed according to our departmental dose-optimization program which includes use of Automated Exposur e Control, adjustment of the mA and/or kV according to patient size and/or use of iterative reconstru ction technique. COMPARISON: None. FINDINGS: The brain parenchyma appears age appropriate. There is no intra-axial or extra-axial ble ed seen. There is no mass or mass effect. There is no evidence of hydrocephalus. The orbital contents appear unremarkable. The visualized paranasal sinuses and mastoid air cells are patent. No fracture is present. IMPRESSION: No acute intracranial abnormality. Electronically signed by: Arnol Kamara MD 09/13/2022 4:52 AM CDT Due to temporary technical issues with the PACS/Fluency reporting system, reports are being signed by the in house radiologists without review as a courtesy to insure prompt reporting. The interpreting radiologist is fully responsible for the content of the report.
--- NOTE | 2022-09-13 22:21 | RAD REPORT ---
EXAM DESCRIPTION: CT - Neck Angio - 09/13/2022 6:52 am CLINICAL HISTORY: Pain COMPARISON: None. TECHNIQUE: Neck CTA axial images acquired with IV contrast. Coronal and sagittal CTA MIPs and MPRs c reated. 3D volume rendered images created. Exam performed according to departmental dose-optimization program which includes automated exposure control, adjustment of mA and/or kV according to patient s ize, and/or use of iterative reconstruction technique. FINDINGS: Aortic arch unremarkable. Both vertebral arteries unremarkable. Right carotid artery bifurcation shows mild calcified atherosclerotic plaque causing mild stenosis (l ess than 10% diameter stenosis) of right common carotid artery's distal-most aspect and no significan t stenosis (0% diameter stenosis by NASCET criteria) of right internal carotid artery's proximal-most aspect. Left carotid artery bifurcation shows mild calcified atherosclerotic plaque causing mild stenosis (ab out 10% diameter stenosis) of left common carotid artery's distal-most aspect and no significant sten osis (0% diameter stenosis by NASCET criteria) of left internal carotid artery's proximal-most aspect . IMPRESSION: Mild calcified bilateral carotid artery bifurcation atherosclerotic plaques causing no s ignificant stenosis. Electronically signed by: Bruce Scales MD 09/13/2022 6:44 AM CDT Due to temporary technical issues with the PACS/Fluency reporting system, reports are being signed by the in house radiologists without review as a courtesy to insure prompt reporting. The interpreting radiologist is fully responsible for the content of the report.
--- NOTE | 2022-09-13 22:22 | RAD REPORT ---
EXAM DESCRIPTION: CT - Head angio - 09/13/2022 6:51 am CLINICAL HISTORY: Headache COMPARISON: CT Head/Brain Without Contrast 09/13/2022 at 4: 07 AM MR Head/Brain Without Contrast 08/08/2021 TECHNIQUE: Head and neck CTA axial images acquired with IV contrast. Coronal and sagittal CTA MIPs a nd MPRs created. 3D volume rendered images created. Exam performed according to departmental dose-opt imization program which includes automated exposure control, adjustment of mA and/or kV according to patient size, and/or use of iterative reconstruction technique. FINDINGS: CTA Head- Both intracranial vertebral, basilar, both posterior communicating, and both posterior cerebral arter ies unremarkable. Right and left internal carotid arteries' cavernous segments show mild calcified atherosclerotic plaq ues causing mild stenosis (about 10% diameter stenosis). Both middle cerebral, anterior communicating, and both anterior cerebral arteries unremarkable. No evidence of large intracranial arterial occlusion, aneurysm, or AVM. IMPRESSION: Unremarkable CTA Head with Contrast. Electronically signed by: Bruce Scales MD 09/13/2022 6:32 AM CDT Due to temporary technical issues with the PACS/Fluency reporting system, reports are being signed by the in house radiologists without review as a courtesy to insure prompt reporting. The interpreting radiologist is fully responsible for the content of the report.
--- NOTE | 2022-09-14 17:34 | EKG ---
Test Date: 2022-09-13 Test Time: 04:34:03 Senior Linux Systems Administrator: VANESSA MEASUREMENT RESULTS: Intervals: Rate: 74 HI: 214 QRSD: 92 QT: 414 QTc: 459 [place]: P: 41 HI: 214 QRS: 52 T: 53 INTERPRETIVE STATEMENTS: Sinus rhythm with 1st degree AV block Otherwise normal ECG Compared to ECG 10/15/2006 14:54:24 First degree AV block now present Electronically Signed On 09-14-22 17:33:23 CDT by Jag Gannon
== END 2022-09-13 06:57 | disposition home or self-care (01) ==
LOC: ER 03:46
DX: R51.9 Headache, unspecified (principal); I10 Essential (primary) hypertension; Z88.0 Allergy status to penicillin; Z88.2 Allergy status to sulfonamides
CPT/HCPCS: 93005; 85025; 80048; 36415; 84484; 83880; 70450; 70496; 70498; 71045; Q9967; J2765; J1200; J7030